=== PATIENT | female | born 1950 | race African-American/Black ===

== ENCOUNTER 2021-02-19 07:24 | Day surgery (SDC) | payer OTHER ==
[2021-02-19] MEDS ORDERED: FERRIC CARBOXYMALTOSE 750 MG in SODIUM CHLORIDE 250 ML IVPB ONE (16:30)
[2021-02-19 19:06] VITALS: BP 136/52; PULSE 65; TEMP 97.5
== END 2021-02-19 17:25 | disposition home or self-care (01) ==
LOC: JONCNONCHE 07:24
PROVIDERS: ATTEND Internal Medicine Hematology & Oncology
PROC: 3E033GC Introduction of Other Therapeutic Substance into Peripheral Vein, Percutaneous Approach (ICD-10-PCS; principal; 2021-02-19)
DX: D50.9 Iron deficiency anemia, unspecified (principal)
CPT/HCPCS: 96365; J1439

== ENCOUNTER 2021-02-26 07:12 | Day surgery (SDC) | payer OTHER ==
[2021-02-26] MEDS ORDERED: FERRIC CARBOXYMALTOSE 750 MG in SODIUM CHLORIDE 250 ML IVPB ONE (10:00)
[2021-02-26 16:59] VITALS: TEMP 97.5
[2021-02-26 17:00] VITALS: BP 136/40; PULSE 63
== END 2021-02-26 14:00 | disposition home or self-care (01) ==
LOC: JONCNONCHE 07:12
PROVIDERS: ATTEND Internal Medicine Hematology & Oncology
PROC: 3E033GC Introduction of Other Therapeutic Substance into Peripheral Vein, Percutaneous Approach (ICD-10-PCS; principal; 2021-02-26)
DX: D50.9 Iron deficiency anemia, unspecified (principal)
CPT/HCPCS: 96365; J1439

== ENCOUNTER 2021-03-19 07:25 | Day surgery (SDC) | payer OTHER ==
[2021-03-19] MEDS ORDERED: EPOETIN ALFA-EPBX 20,000 UNIT/ML VIAL SQ ONE (10:00)
[2021-03-19 15:11] LABS: BASO % 0.7 % (0-2.0); EOS % 1.6 % (0-4.5); HEMATOCRIT 22.8 % (32.4-45.2); HEMOGLOBIN 7.8 GM/dL (10.7-15.3); LYMPH % 14.8 % (8-40); MCH 31.9 pg (25.7-33.7); MCHC 34.2 g/dl (32.0-36.0); MEAN CELL VOLUME 93.3 fl (80-96); MEAN PLT VOLUME 8.6 fl (7.5-11.1); MONO % 9.3 % (3.8-10.2); NEUT % 73.6 % (42.8-82.8); PLATELET COUNT 150 K/MM3 (134-434); RBC 2.44 M/mm3 (3.60-5.2); RDW 12.3 % (11.6-15.6); WHITE BLOOD COUNT 3.5 K/mm3 (4.0-10.0)
[2021-03-19] MEDS ORDERED: EPOETIN ALFA-EPBX 10,000 UNIT/ML VIAL SQ ONE (15:30)
[2021-03-19 15:34] LABS: CALCIUM 9.4 mg/dL (8.5-10.1)
[2021-03-19 15:35] LABS: ALBUMIN 4.4 g/dl (3.4-5.0); BLOOD UREA NITROGEN 63.1 mg/dL (7-18)
[2021-03-19 15:38] LABS: BILIRUBIN,TOTAL 0.4 mg/dL (0.2-1); CREATININE 3.4 mg/dL (0.55-1.3); TOT PROT 7.6 g/dl (6.4-8.2)
[2021-03-19 17:11] VITALS: BP 145/59; PULSE 61
[2021-03-19 17:15] VITALS: TEMP 98.2
== END 2021-03-19 15:35 | disposition home or self-care (01) ==
LOC: JONCCHEMO 07:25
PROVIDERS: ATTEND Internal Medicine Hematology & Oncology
PROC: 3E013GC Introduction of Other Therapeutic Substance into Subcutaneous Tissue, Percutaneous Approach (ICD-10-PCS; principal; 2021-03-19)
DX: N18.9 Chronic kidney disease, unspecified (principal); D63.1 Anemia in chronic kidney disease; D50.9 Iron deficiency anemia, unspecified
CPT/HCPCS: 36415; 80053; 85025; 96372; Q5106

== ENCOUNTER 2021-03-26 07:09 | Day surgery (SDC) | payer OTHER ==
[2021-03-26] MEDS ORDERED: EPOETIN ALFA-EPBX 20,000 UNIT/ML VIAL SQ ONE (10:00)
[2021-03-26 13:51] LABS: BASO % 0.6 % (0-2.0); EOS % 1.6 % (0-4.5); HEMATOCRIT 24.7 % (32.4-45.2); HEMOGLOBIN 8.5 GM/dL (10.7-15.3); LYMPH % 11.8 % (8-40); MCH 32.5 pg (25.7-33.7); MCHC 34.4 g/dl (32.0-36.0); MEAN CELL VOLUME 94.5 fl (80-96); MEAN PLT VOLUME 8.1 fl (7.5-11.1); MONO % 11.6 % (3.8-10.2); NEUT % 74.4 % (42.8-82.8); PLATELET COUNT 188 K/MM3 (134-434); RBC 2.62 M/mm3 (3.60-5.2); RDW 12.7 % (11.6-15.6); WHITE BLOOD COUNT 3.7 K/mm3 (4.0-10.0)
[2021-03-26 14:15] LABS: ALBUMIN 4.5 g/dl (3.4-5.0); BLOOD UREA NITROGEN 41.4 mg/dL (7-18); CALCIUM 9.5 mg/dL (8.5-10.1)
[2021-03-26 14:18] LABS: CREATININE 3.5 mg/dL (0.55-1.3)
[2021-03-26 14:20] LABS: BILIRUBIN,TOTAL 0.6 mg/dL (0.2-1); TOT PROT 7.6 g/dl (6.4-8.2)
[2021-03-26] MEDS ORDERED: EPOETIN ALFA 10,000 UNIT/1 ML VIAL SQ ONE (14:30)
[2021-03-26 16:19] VITALS: BP 150/59; PULSE 61; TEMP 97.8
== END 2021-03-26 14:45 | disposition home or self-care (01) ==
LOC: JONCCHEMO 07:09
PROVIDERS: ATTEND Internal Medicine Hematology & Oncology
PROC: 3E013GC Introduction of Other Therapeutic Substance into Subcutaneous Tissue, Percutaneous Approach (ICD-10-PCS; principal; 2021-03-26)
DX: N18.9 Chronic kidney disease, unspecified (principal); D63.1 Anemia in chronic kidney disease; D50.9 Iron deficiency anemia, unspecified
CPT/HCPCS: 36415; 80053; 85025; 96372; J0885

== ENCOUNTER 2021-04-02 09:33 | Day surgery (SDC) | payer OTHER ==
[2021-04-02] MEDS ORDERED: EPOETIN ALFA-EPBX 10,000 UNIT/ML VIAL SQ ONE (10:00)
[2021-04-02 14:48] LABS: BASO % 0.5 % (0-2.0); HEMATOCRIT 27.1 % (32.4-45.2); HEMOGLOBIN 9.1 GM/dL (10.7-15.3); LYMPH % 10.2 % (8-40); MCH 32.1 pg (25.7-33.7); MCHC 33.6 g/dl (32.0-36.0); MEAN CELL VOLUME 95.4 fl (80-96); MEAN PLT VOLUME 7.2 fl (7.5-11.1); MONO % 9.9 % (3.8-10.2); NEUT % 78.4 % (42.8-82.8); PLATELET COUNT 206 10^3/uL (134-434); RBC 2.83 M/mm3 (3.60-5.2); RDW 14.2 % (11.6-15.6); WHITE BLOOD COUNT 3.7 K/mm3 (4.0-10.0)
[2021-04-02 15:10] LABS: ALBUMIN 4.6 g/dl (3.4-5.0); BLOOD UREA NITROGEN 41.8 mg/dL (7-18); CALCIUM 9.6 mg/dL (8.5-10.1)
[2021-04-02 15:13] LABS: CREATININE 3.1 mg/dL (0.55-1.3)
[2021-04-02 15:15] LABS: BILIRUBIN,TOTAL 0.3 mg/dL (0.2-1); TOT PROT 7.8 g/dl (6.4-8.2)
[2021-04-02 15:56] VITALS: BP 153/66; PULSE 63; TEMP 97.6
== END 2021-04-02 15:25 | disposition home or self-care (01) ==
LOC: JONCCHEMO 09:33
PROVIDERS: ATTEND Internal Medicine Hematology & Oncology
PROC: 3E013GC Introduction of Other Therapeutic Substance into Subcutaneous Tissue, Percutaneous Approach (ICD-10-PCS; principal; 2021-04-02)
DX: N18.9 Chronic kidney disease, unspecified (principal); D63.1 Anemia in chronic kidney disease; D50.9 Iron deficiency anemia, unspecified
CPT/HCPCS: 36415; 80053; 85025; 96372; Q5106

== ENCOUNTER → 2021-04-09 | Day surgery (SDC) | payer OTHER ==
[2021-04-09 15:13] LABS: BASO % 0.8 % (0-2.0); EOS % 1.2 % (0-4.5); HEMATOCRIT 28.3 % (32.4-45.2); HEMOGLOBIN 9.7 GM/dL (10.7-15.3); LYMPH % 8.9 % (8-40); MCH 32.4 pg (25.7-33.7); MCHC 34.4 g/dl (32.0-36.0); MEAN CELL VOLUME 94.1 fl (80-96); MONO % 13.1 % (3.8-10.2); PLATELET COUNT 203 10^3/uL (134-434); RBC 3.01 M/mm3 (3.60-5.2); RDW 13.8 % (11.6-15.6); WHITE BLOOD COUNT 3.1 K/mm3 (4.0-10.0)
[2021-04-09 15:28] LABS: ALBUMIN 4.7 g/dl (3.4-5.0); BLOOD UREA NITROGEN 47.2 mg/dL (7-18); CALCIUM 9.6 mg/dL (8.5-10.1)
[2021-04-09 15:32] LABS: CREATININE 3.1 mg/dL (0.55-1.3)
[2021-04-09 15:33] LABS: BILIRUBIN,TOTAL 0.4 mg/dL (0.2-1); TOT PROT 7.6 g/dl (6.4-8.2)
== END | disposition home or self-care (01) ==
LOC: JONCCHEMO 07:15
PROVIDERS: ATTEND Internal Medicine Hematology & Oncology
DX: Z53.8 Procedure and treatment not carried out for other reasons (principal)
CPT/HCPCS: 36415; 80053; 82150; 82728; 83540; 83550; 83690; 85025; 96365

== ENCOUNTER 2021-05-07 07:13 | Day surgery (SDC) | payer OTHER ==
[~2021-05-07 07:13] MED LIST: EPOETIN ALFA-EPBX 10,000 UNIT/ML VIAL SQ ONE
[2021-05-07] MEDS ORDERED: EPOETIN ALFA-EPBX 10,000 UNIT/ML VIAL SQ ONE (10:00)
[2021-05-07 10:47] LABS: BASO % 0.6 % (0-2.0); EOS % 2.2 % (0-4.5); HEMATOCRIT 25.6 % (32.4-45.2); HEMOGLOBIN 8.8 GM/dL (10.7-15.3); LYMPH % 17.3 % (8-40); MCH 31.7 pg (25.7-33.7); MCHC 34.1 g/dl (32.0-36.0); MEAN CELL VOLUME 92.7 fl (80-96); MEAN PLT VOLUME 8.7 fl (7.5-11.1); MONO % 9.1 % (3.8-10.2); NEUT % 70.8 % (42.8-82.8); PLATELET COUNT 140 10^3/uL (134-434); RBC 2.77 M/mm3 (3.60-5.2); RDW 13.2 % (11.6-15.6); WHITE BLOOD COUNT 4.1 K/mm3 (4.0-10.0)
[2021-05-07 11:06] LABS: ALBUMIN 4.1 g/dl (3.4-5.0); BLOOD UREA NITROGEN 57.6 mg/dL (7-18); CALCIUM 9.3 mg/dL (8.5-10.1)
[2021-05-07 11:09] LABS: CREATININE 3.1 mg/dL (0.55-1.3)
[2021-05-07 11:10] LABS: BILIRUBIN,TOTAL 0.3 mg/dL (0.2-1); TOT PROT 7.3 g/dl (6.4-8.2)
[2021-05-07 16:12] VITALS: BP 146/79; PULSE 68; TEMP 97.8
== END 2021-05-07 12:35 | disposition home or self-care (01) ==
LOC: JONCCHEMO 07:13
PROVIDERS: ATTEND Internal Medicine Hematology & Oncology
PROC: 3E013GC Introduction of Other Therapeutic Substance into Subcutaneous Tissue, Percutaneous Approach (ICD-10-PCS; principal; 2021-05-07)
DX: I12.9 Hypertensive chronic kidney disease with stage 1 through stage 4 chronic kidney disease, or unspecified chronic kidney disease (principal); E11.22 Type 2 diabetes mellitus with diabetic chronic kidney disease; D63.1 Anemia in chronic kidney disease; N18.9 Chronic kidney disease, unspecified; D50.9 Iron deficiency anemia, unspecified
CPT/HCPCS: 36415; 80053; 82728; 83540; 83550; 85025; 96372; Q5106

== ENCOUNTER 2021-05-14 07:18 | Day surgery (SDC) | payer OTHER ==
[2021-05-14] MEDS ORDERED: EPOETIN ALFA-EPBX 10,000 UNIT/ML VIAL SQ ONE (13:15)
[2021-05-14 14:19] LABS: BASO % 0.4 % (0-2.0); EOS % 1.9 % (0-4.5); HEMATOCRIT 24.7 % (32.4-45.2); HEMOGLOBIN 8.6 GM/dL (10.7-15.3); LYMPH % 14.2 % (8-40); MCH 32.9 pg (25.7-33.7); MCHC 34.7 g/dl (32.0-36.0); MEAN CELL VOLUME 94.9 fl (80-96); MEAN PLT VOLUME 8.8 fl (7.5-11.1); MONO % 9.5 % (3.8-10.2); PLATELET COUNT 143 10^3/uL (134-434); RDW 13.2 % (11.6-15.6)
[2021-05-14 14:21] VITALS: BP 134/61; PULSE 60; TEMP 98
[2021-05-14 14:42] LABS: ALBUMIN 4.1 g/dl (3.4-5.0); BLOOD UREA NITROGEN 47.7 mg/dL (7-18); CALCIUM 9.3 mg/dL (8.5-10.1)
[2021-05-14 14:45] LABS: CREATININE 2.7 mg/dL (0.55-1.3)
[2021-05-14 14:47] LABS: BILIRUBIN,TOTAL 0.4 mg/dL (0.2-1); TOT PROT 7.2 g/dl (6.4-8.2)
== END 2021-05-14 14:15 | disposition home or self-care (01) ==
LOC: JONCNONCHE 07:18
PROVIDERS: ATTEND Internal Medicine Hematology & Oncology
PROC: 3E013GC Introduction of Other Therapeutic Substance into Subcutaneous Tissue, Percutaneous Approach (ICD-10-PCS; principal; 2021-05-14)
DX: D64.9 Anemia, unspecified (principal); D50.9 Iron deficiency anemia, unspecified
CPT/HCPCS: 36415; 80053; 85025; 96372; Q5106

== ENCOUNTER 2021-05-21 07:17 | Day surgery (SDC) | payer OTHER ==
[2021-05-21] MEDS ORDERED: EPOETIN ALFA-EPBX 10,000 UNIT/ML VIAL SQ ONE (10:00)
[2021-05-21 14:21] LABS: BASO % 0.4 % (0-2.0); EOS % 2.1 % (0-4.5); HEMATOCRIT 27.2 % (32.4-45.2); HEMOGLOBIN 9.4 GM/dL (10.7-15.3); LYMPH % 13.3 % (8-40); MCH 33.4 pg (25.7-33.7); MCHC 34.4 g/dl (32.0-36.0); MEAN CELL VOLUME 97.1 fl (80-96); MEAN PLT VOLUME 8.3 fl (7.5-11.1); MONO % 6.7 % (3.8-10.2); NEUT % 77.5 % (42.8-82.8); PLATELET COUNT 165 10^3/uL (134-434); RDW 14.7 % (11.6-15.6); WHITE BLOOD COUNT 4.1 K/mm3 (4.0-10.0)
[2021-05-21 14:43] LABS: BLOOD UREA NITROGEN 48.2 mg/dL (7-18); CALCIUM 9.1 mg/dL (8.5-10.1)
[2021-05-21 14:47] LABS: CREATININE 3.1 mg/dL (0.55-1.3)
[2021-05-21 14:48] LABS: BILIRUBIN,TOTAL 0.4 mg/dL (0.2-1); TOT PROT 7.3 g/dl (6.4-8.2)
[2021-05-21 16:09] VITALS: BP 136/58; PULSE 68; TEMP 98.4
== END 2021-05-21 14:15 | disposition home or self-care (01) ==
LOC: JONCCHEMO 07:17
PROVIDERS: ATTEND Internal Medicine Hematology & Oncology
PROC: 3E013GC Introduction of Other Therapeutic Substance into Subcutaneous Tissue, Percutaneous Approach (ICD-10-PCS; principal; 2021-05-21)
DX: D64.9 Anemia, unspecified (principal); D50.9 Iron deficiency anemia, unspecified
CPT/HCPCS: 36415; 80053; 85025; 96372; Q5106

== ENCOUNTER 2021-06-04 06:37 | Day surgery (SDC) | payer OTHER ==
[2021-06-04 14:22] LABS: HEMATOCRIT 29.5 % (32.4-45.2); HEMOGLOBIN 9.9 GM/dL (10.7-15.3); RBC 3.06 M/mm3 (3.60-5.2); WHITE BLOOD COUNT 3.4 K/mm3 (4.0-10.0)
[2021-06-04 14:23] LABS: BASO % 0.7 % (0-2.0); EOS % 2.1 % (0-4.5); LYMPH % 18.6 % (8-40); MCH 32.2 pg (25.7-33.7); MCHC 33.5 g/dl (32.0-36.0); MEAN CELL VOLUME 96.2 fl (80-96); MEAN PLT VOLUME 8.1 fl (7.5-11.1); MONO % 8.4 % (3.8-10.2); NEUT % 70.2 % (42.8-82.8); PLATELET COUNT 183 10^3/uL (134-434); RDW 14.2 % (11.6-15.6)
[2021-06-04 14:38] LABS: ALBUMIN 4.5 g/dl (3.4-5.0); BLOOD UREA NITROGEN 72.7 mg/dL (7-18); CALCIUM 9.7 mg/dL (8.5-10.1)
[2021-06-04 14:41] LABS: CREATININE 3.1 mg/dL (0.55-1.3)
[2021-06-04 14:43] LABS: BILIRUBIN,TOTAL 0.4 mg/dL (0.2-1); TOT PROT 7.7 g/dl (6.4-8.2)
[2021-06-04] MEDS ORDERED: EPOETIN ALFA-EPBX 10,000 UNIT/ML VIAL SQ ONE (15:02)
[2021-06-04 15:44] VITALS: BP 156/65; PULSE 69; TEMP 98.1
== END 2021-06-04 15:40 | disposition home or self-care (01) ==
LOC: JONCCHEMO 06:37
PROVIDERS: ATTEND Internal Medicine Hematology & Oncology
PROC: 3E013GC Introduction of Other Therapeutic Substance into Subcutaneous Tissue, Percutaneous Approach (ICD-10-PCS; principal; 2021-06-04)
DX: D50.9 Iron deficiency anemia, unspecified (principal)
CPT/HCPCS: 36415; 80053; 85025; 96372; Q5106

== ENCOUNTER 2021-06-18 06:55 | Day surgery (SDC) | payer OTHER ==
[2021-06-18] MEDS ORDERED: EPOETIN ALFA-EPBX 10,000 UNIT/ML VIAL SQ ONE (14:04)
[2021-06-18 14:42] LABS: BASO % 0.6 % (0-2.0); EOS % 2.6 % (0-4.5); HEMATOCRIT 29.5 % (32.4-45.2); HEMOGLOBIN 10.2 GM/dL (10.7-15.3); LYMPH % 20.1 % (8-40); MCH 32.8 pg (25.7-33.7); MCHC 34.5 g/dl (32.0-36.0); MEAN CELL VOLUME 95.2 fl (80-96); MEAN PLT VOLUME 8.3 fl (7.5-11.1); MONO % 8.6 % (3.8-10.2); NEUT % 68.1 % (42.8-82.8); PLATELET COUNT 157 10^3/uL (134-434); RDW 13.7 % (11.6-15.6); WHITE BLOOD COUNT 3.9 K/mm3 (4.0-10.0)
[2021-06-18 16:48] VITALS: BP 144/61; PULSE 59; TEMP 98.1
== END 2021-06-18 15:05 | disposition home or self-care (01) ==
LOC: JONCCHEMO 06:55
PROVIDERS: ATTEND Internal Medicine Hematology & Oncology
PROC: 3E013GC Introduction of Other Therapeutic Substance into Subcutaneous Tissue, Percutaneous Approach (ICD-10-PCS; principal; 2021-06-18)
DX: C64.9 Malignant neoplasm of unspecified kidney, except renal pelvis (principal); D63.1 Anemia in chronic kidney disease; I12.0 Hypertensive chronic kidney disease with stage 5 chronic kidney disease or end stage renal disease; I12.9 Hypertensive chronic kidney disease with stage 1 through stage 4 chronic kidney disease, or unspecified chronic kidney disease; E11.22 Type 2 diabetes mellitus with diabetic chronic kidney disease; N18.9 Chronic kidney disease, unspecified
CPT/HCPCS: 36415; 85025; 96372; Q5106

== ENCOUNTER 2021-06-25 06:38 | Day surgery (SDC) | payer OTHER ==
[2021-06-25] MEDS ORDERED: EPOETIN ALFA-EPBX 10,000 UNIT/ML VIAL SQ ONE (11:00)
[2021-06-25 14:04] LABS: BASO % 0.5 % (0-2.0); EOS % 2.5 % (0-4.5); HEMATOCRIT 30.2 % (32.4-45.2); HEMOGLOBIN 10.3 GM/dL (10.7-15.3); LYMPH % 17.8 % (8-40); MCH 32.9 pg (25.7-33.7); MEAN CELL VOLUME 96.8 fl (80-96); MEAN PLT VOLUME 8.5 fl (7.5-11.1); MONO % 9.5 % (3.8-10.2); NEUT % 69.7 % (42.8-82.8); PLATELET COUNT 177 10^3/uL (134-434); RBC 3.12 M/mm3 (3.60-5.2); RDW 13.8 % (11.6-15.6); WHITE BLOOD COUNT 4.4 K/mm3 (4.0-10.0)
[2021-06-25 14:15] LABS: BLOOD UREA NITROGEN 70.7 mg/dL (7-18); CALCIUM 9.6 mg/dL (8.5-10.1)
[2021-06-25 14:16] LABS: ALBUMIN 4.2 g/dl (3.4-5.0)
[2021-06-25 14:18] LABS: CREATININE 3.1 mg/dL (0.55-1.3)
[2021-06-25 14:20] LABS: BILIRUBIN,TOTAL 0.4 mg/dL (0.2-1); TOT PROT 7.6 g/dl (6.4-8.2)
[2021-06-25 16:15] VITALS: BP 141/59; PULSE 63; TEMP 97.8
== END 2021-06-25 14:35 | disposition home or self-care (01) ==
LOC: JONCCHEMO 06:38
PROVIDERS: ATTEND Internal Medicine Hematology & Oncology
PROC: 3E013GC Introduction of Other Therapeutic Substance into Subcutaneous Tissue, Percutaneous Approach (ICD-10-PCS; principal; 2021-06-25)
DX: D50.9 Iron deficiency anemia, unspecified (principal)
CPT/HCPCS: 36415; 80053; 85025; 96372; Q5106

== ENCOUNTER 2021-07-09 07:03 | Day surgery (SDC) | payer OTHER ==
[2021-07-09 10:14] LABS: BASO % 0.7 % (0-2.0); EOS % 1.9 % (0-4.5); HEMOGLOBIN 10.7 GM/dL (10.7-15.3); LYMPH % 12.9 % (8-40); MCH 32.2 pg (25.7-33.7); MCHC 33.4 g/dl (32.0-36.0); MEAN CELL VOLUME 96.3 fl (80-96); MEAN PLT VOLUME 8.3 fl (7.5-11.1); MONO % 8.3 % (3.8-10.2); NEUT % 76.2 % (42.8-82.8); PLATELET COUNT 166 10^3/uL (134-434); RBC 3.32 M/mm3 (3.60-5.2); RDW 13.8 % (11.6-15.6)
[2021-07-09 10:35] LABS: CALCIUM 9.8 mg/dL (8.5-10.1)
[2021-07-09 10:36] LABS: ALBUMIN 4.1 g/dl (3.4-5.0); BLOOD UREA NITROGEN 63.8 mg/dL (7-18)
[2021-07-09 10:40] LABS: BILIRUBIN,TOTAL 0.6 mg/dL (0.2-1); TOT PROT 7.7 g/dl (6.4-8.2)
[2021-07-09] MEDS ORDERED: EPOETIN ALFA-EPBX 10,000 UNIT/ML VIAL SQ ONE (11:45)
[2021-07-09 14:58] VITALS: BP 162/76; PULSE 59; TEMP 97.7
== END 2021-07-09 11:50 | disposition home or self-care (01) ==
LOC: JONCCHEMO 07:03
PROVIDERS: ATTEND Internal Medicine Hematology & Oncology
PROC: 3E013GC Introduction of Other Therapeutic Substance into Subcutaneous Tissue, Percutaneous Approach (ICD-10-PCS; principal; 2021-07-09)
DX: I12.9 Hypertensive chronic kidney disease with stage 1 through stage 4 chronic kidney disease, or unspecified chronic kidney disease (principal); N18.9 Chronic kidney disease, unspecified; D63.1 Anemia in chronic kidney disease; E11.22 Type 2 diabetes mellitus with diabetic chronic kidney disease; C64.9 Malignant neoplasm of unspecified kidney, except renal pelvis
CPT/HCPCS: 36415; 80053; 85025; 96372; Q5106

== ENCOUNTER 2021-07-23 07:14 | Day surgery (SDC) | payer OTHER ==
[2021-07-23 13:31] LABS: BASO % 0.7 % (0-2.0); EOS % 2.9 % (0-4.5); HEMATOCRIT 31.9 % (32.4-45.2); HEMOGLOBIN 10.7 GM/dL (10.7-15.3); LYMPH % 18.4 % (8-40); MCH 32.2 pg (25.7-33.7); MCHC 33.6 g/dl (32.0-36.0); MEAN CELL VOLUME 95.8 fl (80-96); PLATELET COUNT 143 10^3/uL (134-434); RBC 3.33 M/mm3 (3.60-5.2); RDW 13.5 % (11.6-15.6); WHITE BLOOD COUNT 3.8 K/mm3 (4.0-10.0)
[2021-07-23 13:56] LABS: ALBUMIN 4.3 g/dl (3.4-5.0); BLOOD UREA NITROGEN 71.2 mg/dL (7-18); CALCIUM 9.8 mg/dL (8.5-10.1)
[2021-07-23 14:00] LABS: TOT PROT 7.9 g/dl (6.4-8.2)
[2021-07-23] MEDS ORDERED: EPOETIN ALFA 10,000 UNIT/1 ML VIAL SQ ONE (14:00)
[2021-07-23 14:01] LABS: BILIRUBIN,TOTAL 0.4 mg/dL (0.2-1)
[2021-07-23] MEDS ORDERED: EPOETIN ALFA-EPBX 10,000 UNIT/ML VIAL SQ ONE (14:15)
[2021-07-23 16:35] VITALS: BP 152/68; PULSE 68; TEMP 98
== END 2021-07-23 14:40 | disposition home or self-care (01) ==
LOC: JONCCHEMO 07:14
PROVIDERS: ATTEND Internal Medicine Hematology & Oncology
PROC: 3E013GC Introduction of Other Therapeutic Substance into Subcutaneous Tissue, Percutaneous Approach (ICD-10-PCS; principal; 2021-07-23)
DX: N18.9 Chronic kidney disease, unspecified (principal); D63.1 Anemia in chronic kidney disease; E11.9 Type 2 diabetes mellitus without complications; C64.9 Malignant neoplasm of unspecified kidney, except renal pelvis
CPT/HCPCS: 36415; 80053; 82728; 83540; 83550; 85025; 96372; Q5106

== ENCOUNTER 2021-07-30 07:42 | Day surgery (SDC) | payer OTHER ==
[2021-07-30] MEDS ORDERED: EPOETIN ALFA-EPBX 10,000 UNIT/ML VIAL SQ ONE (10:00)
[2021-07-30 11:16] LABS: BASO % 0.4 % (0-2.0); EOS % 2.4 % (0-4.5); HEMATOCRIT 32.6 % (32.4-45.2); LYMPH % 13.3 % (8-40); MCH 31.8 pg (25.7-33.7); MCHC 33.7 g/dl (32.0-36.0); MEAN CELL VOLUME 94.5 fl (80-96); MEAN PLT VOLUME 8.3 fl (7.5-11.1); MONO % 7.4 % (3.8-10.2); NEUT % 76.5 % (42.8-82.8); PLATELET COUNT 171 10^3/uL (134-434); RBC 3.44 M/mm3 (3.60-5.2); RDW 13.4 % (11.6-15.6); WHITE BLOOD COUNT 4.7 K/mm3 (4.0-10.0)
[2021-07-30 11:44] LABS: CALCIUM 9.4 mg/dL (8.5-10.1)
[2021-07-30 11:45] LABS: BLOOD UREA NITROGEN 72.5 mg/dL (7-18)
[2021-07-30 11:48] LABS: CREATININE 3.1 mg/dL (0.55-1.3)
[2021-07-30 11:49] LABS: BILIRUBIN,TOTAL 0.5 mg/dL (0.2-1); TOT PROT 7.8 g/dl (6.4-8.2)
[2021-07-30 16:40] VITALS: BP 164/56; PULSE 61; TEMP 98.2
== END 2021-07-30 12:00 | disposition home or self-care (01) ==
LOC: JONCCHEMO 07:42
PROVIDERS: ATTEND Internal Medicine Hematology & Oncology
DX: Z53.8 Procedure and treatment not carried out for other reasons (principal)
CPT/HCPCS: 36415; 80053; 82728; 83540; 83550; 85025

== ENCOUNTER → 2021-08-06 | Day surgery (SDC) | payer OTHER ==
[2021-08-06 11:52] LABS: BASO % 0.6 % (0-2.0); EOS % 2.3 % (0-4.5); HEMATOCRIT 32.8 % (32.4-45.2); LYMPH % 18.8 % (8-40); MCH 31.9 pg (25.7-33.7); MCHC 33.4 g/dl (32.0-36.0); MEAN CELL VOLUME 95.4 fl (80-96); MEAN PLT VOLUME 9.2 fl (7.5-11.1); MONO % 8.4 % (3.8-10.2); NEUT % 69.9 % (42.8-82.8); PLATELET COUNT 150 10^3/uL (134-434); RBC 3.44 M/mm3 (3.60-5.2); RDW 13.6 % (11.6-15.6); WHITE BLOOD COUNT 3.4 K/mm3 (4.0-10.0)
[2021-08-06 12:11] LABS: BLOOD UREA NITROGEN 82.3 mg/dL (7-18); CALCIUM 9.8 mg/dL (8.5-10.1)
[2021-08-06 12:14] LABS: CREATININE 3.3 mg/dL (0.55-1.3)
[2021-08-06 12:15] LABS: BILIRUBIN,TOTAL 0.3 mg/dL (0.2-1); TOT PROT 7.8 g/dl (6.4-8.2)
== END | disposition home or self-care (01) ==
LOC: JONCCHEMO 08:37
PROVIDERS: ATTEND Internal Medicine Hematology & Oncology
DX: Z53.8 Procedure and treatment not carried out for other reasons (principal)
CPT/HCPCS: 36415; 80053; 82728; 83540; 83550; 85025

== ENCOUNTER 2021-08-20 08:35 | Day surgery (SDC) | payer OTHER ==
[2021-08-20] MEDS ORDERED: EPOETIN ALFA-EPBX 10,000 UNIT/ML VIAL SQ ONE (10:00)
[2021-08-20 11:07] LABS: BASO % 0.3 % (0-2.0); EOS % 2.5 % (0-4.5); HEMATOCRIT 31.1 % (32.4-45.2); HEMOGLOBIN 10.5 GM/dL (10.7-15.3); LYMPH % 16.5 % (8-40); MCH 31.5 pg (25.7-33.7); MCHC 33.7 g/dl (32.0-36.0); MEAN CELL VOLUME 93.3 fl (80-96); MEAN PLT VOLUME 9.3 fl (7.5-11.1); MONO % 7.8 % (3.8-10.2); NEUT % 72.9 % (42.8-82.8); PLATELET COUNT 144 10^3/uL (134-434); RBC 3.33 M/mm3 (3.60-5.2); RDW 13.1 % (11.6-15.6); WHITE BLOOD COUNT 4.8 K/mm3 (4.0-10.0)
[2021-08-20 11:26] LABS: ALBUMIN 4.1 g/dl (3.4-5.0); BLOOD UREA NITROGEN 76.8 mg/dL (7-18); CALCIUM 9.5 mg/dL (8.5-10.1)
[2021-08-20 11:29] LABS: CREATININE 3.2 mg/dL (0.55-1.3)
[2021-08-20 11:30] LABS: BILIRUBIN,TOTAL 0.4 mg/dL (0.2-1); TOT PROT 7.6 g/dl (6.4-8.2)
[2021-08-20 15:22] VITALS: BP 131/58; PULSE 57; TEMP 97.6
== END 2021-08-20 11:35 | disposition home or self-care (01) ==
LOC: JONCCHEMO 08:35
PROVIDERS: ATTEND Internal Medicine Hematology & Oncology
PROC: 3E013GC Introduction of Other Therapeutic Substance into Subcutaneous Tissue, Percutaneous Approach (ICD-10-PCS; principal; 2021-08-20)
DX: I12.9 Hypertensive chronic kidney disease with stage 1 through stage 4 chronic kidney disease, or unspecified chronic kidney disease (principal); N18.9 Chronic kidney disease, unspecified; E11.22 Type 2 diabetes mellitus with diabetic chronic kidney disease; D63.1 Anemia in chronic kidney disease; C64.9 Malignant neoplasm of unspecified kidney, except renal pelvis
CPT/HCPCS: 36415; 80053; 85025; 96372; Q5106

== ENCOUNTER 2021-08-27 07:39 | Day surgery (SDC) | payer OTHER ==
[2021-08-27] MEDS ORDERED: EPOETIN ALFA-EPBX 10,000 UNIT/ML VIAL SQ ONE (10:00)
[2021-08-27 10:47] LABS: BASO % 0.4 % (0-2.0); EOS % 2.2 % (0-4.5); HEMATOCRIT 30.7 % (32.4-45.2); HEMOGLOBIN 10.6 GM/dL (10.7-15.3); LYMPH % 15.5 % (8-40); MCHC 34.4 g/dl (32.0-36.0); MEAN CELL VOLUME 90.2 fl (80-96); MEAN PLT VOLUME 8.1 fl (7.5-11.1); MONO % 10.3 % (3.8-10.2); NEUT % 71.6 % (42.8-82.8); PLATELET COUNT 174 10^3/uL (134-434); RDW 13.3 % (11.6-15.6); WHITE BLOOD COUNT 3.5 K/mm3 (4.0-10.0)
[2021-08-27 11:07] LABS: ALBUMIN 4.3 g/dl (3.4-5.0); BLOOD UREA NITROGEN 64.5 mg/dL (7-18); CALCIUM 9.8 mg/dL (8.5-10.1)
[2021-08-27 11:10] LABS: CREATININE 3.2 mg/dL (0.55-1.3)
[2021-08-27 11:12] LABS: BILIRUBIN,TOTAL 0.5 mg/dL (0.2-1); TOT PROT 7.9 g/dl (6.4-8.2)
[2021-08-27 13:48] VITALS: BP 136/72; PULSE 81; TEMP 98.2
== END 2021-08-27 13:04 | disposition home or self-care (01) ==
LOC: JONCCHEMO 07:39
PROVIDERS: ATTEND Internal Medicine Hematology & Oncology
PROC: 3E013GC Introduction of Other Therapeutic Substance into Subcutaneous Tissue, Percutaneous Approach (ICD-10-PCS; principal; 2021-08-27)
DX: I12.9 Hypertensive chronic kidney disease with stage 1 through stage 4 chronic kidney disease, or unspecified chronic kidney disease (principal); D63.1 Anemia in chronic kidney disease; N18.9 Chronic kidney disease, unspecified; E11.22 Type 2 diabetes mellitus with diabetic chronic kidney disease; C64.9 Malignant neoplasm of unspecified kidney, except renal pelvis
CPT/HCPCS: 36415; 80053; 85025; 96372; Q5106

== ENCOUNTER 2021-09-17 07:34 | Day surgery (SDC) | payer OTHER ==
[2021-09-17] MEDS ORDERED: EPOETIN ALFA-EPBX 10,000 UNIT/ML VIAL SQ ONE (10:00)
[2021-09-17 15:06] LABS: BASO % 0.6 % (0-2.0); EOS % 2.2 % (0-4.5); HEMATOCRIT 31.9 % (32.4-45.2); HEMOGLOBIN 10.7 GM/dL (10.7-15.3); LYMPH % 17.3 % (8-40); MCH 31.2 pg (25.7-33.7); MCHC 33.4 g/dl (32.0-36.0); MEAN CELL VOLUME 93.2 fl (80-96); MEAN PLT VOLUME 8.8 fl (7.5-11.1); MONO % 7.6 % (3.8-10.2); NEUT % 72.3 % (42.8-82.8); PLATELET COUNT 160 10^3/uL (134-434); RBC 3.42 M/mm3 (3.60-5.2); WHITE BLOOD COUNT 3.6 K/mm3 (4.0-10.0)
[2021-09-17 15:29] LABS: ALBUMIN 4.5 g/dl (3.4-5.0); BLOOD UREA NITROGEN 93.7 mg/dL (7-18); CALCIUM 9.8 mg/dL (8.5-10.1)
[2021-09-17 15:32] LABS: CREATININE 3.4 mg/dL (0.55-1.3)
[2021-09-17 15:33] LABS: TOT PROT 8.2 g/dl (6.4-8.2)
[2021-09-17 15:34] LABS: BILIRUBIN,TOTAL 0.6 mg/dL (0.2-1)
[2021-09-17 16:01] VITALS: BP 131/57; PULSE 20; TEMP 97.7
== END 2021-09-17 16:00 | disposition home or self-care (01) ==
LOC: JONCCHEMO 07:34
PROVIDERS: ATTEND Internal Medicine Hematology & Oncology
PROC: 3E013GC Introduction of Other Therapeutic Substance into Subcutaneous Tissue, Percutaneous Approach (ICD-10-PCS; principal; 2021-09-17)
DX: I12.9 Hypertensive chronic kidney disease with stage 1 through stage 4 chronic kidney disease, or unspecified chronic kidney disease (principal); D63.1 Anemia in chronic kidney disease; C64.9 Malignant neoplasm of unspecified kidney, except renal pelvis; N18.9 Chronic kidney disease, unspecified; E11.22 Type 2 diabetes mellitus with diabetic chronic kidney disease
CPT/HCPCS: 36415; 80053; 82728; 83540; 83550; 85025; 96372; Q5106

== ENCOUNTER 2021-10-01 07:21 | Day surgery (SDC) | payer OTHER ==
[2021-10-01 14:52] LABS: BASO % 0.8 % (0-2.0); EOS % 2.3 % (0-4.5); HEMATOCRIT 31.7 % (32.4-45.2); HEMOGLOBIN 10.6 GM/dL (10.7-15.3); LYMPH % 19.2 % (8-40); MCH 31.5 pg (25.7-33.7); MCHC 33.4 g/dl (32.0-36.0); MEAN CELL VOLUME 94.4 fl (80-96); MEAN PLT VOLUME 8.6 fl (7.5-11.1); MONO % 6.4 % (3.8-10.2); NEUT % 71.3 % (42.8-82.8); PLATELET COUNT 168 10^3/uL (134-434); RBC 3.36 M/mm3 (3.60-5.2); RDW 14.2 % (11.6-15.6); WHITE BLOOD COUNT 3.4 K/mm3 (4.0-10.0)
[2021-10-01] MEDS ORDERED: EPOETIN ALFA-EPBX 10,000 UNIT/ML VIAL SQ ONE (15:00)
[2021-10-01 15:17] LABS: ALBUMIN 4.2 g/dl (3.4-5.0)
[2021-10-01 15:20] LABS: CREATININE 3.2 mg/dL (0.55-1.3)
[2021-10-01 15:22] LABS: BILIRUBIN,TOTAL 0.4 mg/dL (0.2-1)
[2021-10-01 15:24] LABS: BLOOD UREA NITROGEN 59.3 mg/dL (7-18)
[2021-10-01 15:50] VITALS: BP 140/87; PULSE 59; TEMP 97.4
== END 2021-10-01 15:10 | disposition home or self-care (01) ==
LOC: JONCCHEMO 07:21
PROVIDERS: ATTEND Internal Medicine Hematology & Oncology
PROC: 3E013GC Introduction of Other Therapeutic Substance into Subcutaneous Tissue, Percutaneous Approach (ICD-10-PCS; principal; 2021-10-01)
DX: I12.9 Hypertensive chronic kidney disease with stage 1 through stage 4 chronic kidney disease, or unspecified chronic kidney disease (principal); D63.1 Anemia in chronic kidney disease; C64.9 Malignant neoplasm of unspecified kidney, except renal pelvis; N18.9 Chronic kidney disease, unspecified; E11.22 Type 2 diabetes mellitus with diabetic chronic kidney disease
CPT/HCPCS: 36415; 80053; 85025; 96372; Q5106

== ENCOUNTER 2021-10-14 07:24 | Day surgery (SDC) | payer OTHER ==
[2021-10-14] MEDS ORDERED: EPOETIN ALFA-EPBX 10,000 UNIT/ML VIAL SQ ONE (10:00)
[2021-10-14 12:29] LABS: BASO % 0.5 % (0-2.0); EOS % 2.2 % (0-4.5); HEMATOCRIT 32.6 % (32.4-45.2); HEMOGLOBIN 10.8 GM/dL (10.7-15.3); LYMPH % 17.4 % (8-40); MEAN CELL VOLUME 94.2 fl (80-96); MEAN PLT VOLUME 8.3 fl (7.5-11.1); MONO % 8.2 % (3.8-10.2); NEUT % 71.7 % (42.8-82.8); PLATELET COUNT 167 10^3/uL (134-434); RBC 3.47 M/mm3 (3.60-5.2); RDW 14.3 % (11.6-15.6); WHITE BLOOD COUNT 3.6 K/mm3 (4.0-10.0)
[2021-10-14 12:59] LABS: CALCIUM 9.8 mg/dL (8.5-10.1)
[2021-10-14 13:00] LABS: ALBUMIN 4.5 g/dl (3.4-5.0)
[2021-10-14 13:03] LABS: BILIRUBIN,TOTAL 0.5 mg/dL (0.2-1); CREATININE 3.2 mg/dL (0.55-1.3)
[2021-10-14 15:50] VITALS: BP 131/59; PULSE 57; TEMP 97.7
== END 2021-10-14 13:00 | disposition home or self-care (01) ==
LOC: JONCCHEMO 07:24
PROVIDERS: ATTEND Internal Medicine Hematology & Oncology
PROC: 3E013GC Introduction of Other Therapeutic Substance into Subcutaneous Tissue, Percutaneous Approach (ICD-10-PCS; principal; 2021-10-14)
DX: I12.9 Hypertensive chronic kidney disease with stage 1 through stage 4 chronic kidney disease, or unspecified chronic kidney disease (principal); D63.1 Anemia in chronic kidney disease; N18.9 Chronic kidney disease, unspecified; E11.22 Type 2 diabetes mellitus with diabetic chronic kidney disease
CPT/HCPCS: 36415; 80053; 85025; 96372; Q5106

== ENCOUNTER 2021-10-29 07:28 | Day surgery (SDC) | payer OTHER ==
[2021-10-29] MEDS ORDERED: EPOETIN ALFA-EPBX 10,000 UNIT/ML VIAL SQ ONE (10:00)
[2021-10-29 12:57] LABS: BASO % 0.9 % (0-2.0); EOS % 2.7 % (0-4.5); HEMATOCRIT 31.9 % (32.4-45.2); HEMOGLOBIN 10.3 GM/dL (10.7-15.3); LYMPH % 20.9 % (8-40); MCHC 32.3 g/dl (32.0-36.0); MEAN CELL VOLUME 95.8 fl (80-96); MEAN PLT VOLUME 8.8 fl (7.5-11.1); MONO % 8.4 % (3.8-10.2); NEUT % 67.1 % (42.8-82.8); PLATELET COUNT 157 10^3/uL (134-434); RBC 3.33 M/mm3 (3.60-5.2); RDW 14.2 % (11.6-15.6); WHITE BLOOD COUNT 2.9 K/mm3 (4.0-10.0)
[2021-10-29 13:11] LABS: ALBUMIN 4.4 g/dl (3.4-5.0); BLOOD UREA NITROGEN 81.1 mg/dL (7-18)
[2021-10-29 13:15] LABS: BILIRUBIN,TOTAL 0.5 mg/dL (0.2-1)
[2021-10-29 13:16] LABS: TOT PROT 7.5 g/dl (6.4-8.2)
[2021-10-29 17:37] VITALS: BP 158/52; PULSE 58; TEMP 97.8
== END 2021-10-29 14:30 | disposition home or self-care (01) ==
LOC: JONCCHEMO 07:28
PROVIDERS: ATTEND Internal Medicine Hematology & Oncology
PROC: 3E013GC Introduction of Other Therapeutic Substance into Subcutaneous Tissue, Percutaneous Approach (ICD-10-PCS; principal; 2021-10-29)
DX: C64.9 Malignant neoplasm of unspecified kidney, except renal pelvis (principal); D63.1 Anemia in chronic kidney disease; I12.0 Hypertensive chronic kidney disease with stage 5 chronic kidney disease or end stage renal disease; N18.9 Chronic kidney disease, unspecified; E11.22 Type 2 diabetes mellitus with diabetic chronic kidney disease
CPT/HCPCS: 36415; 80053; 85025; 96372; Q5106

== ENCOUNTER 2021-11-12 07:37 | Day surgery (SDC) | payer OTHER ==
[2021-11-12] MEDS ORDERED: EPOETIN ALFA-EPBX 10,000 UNIT/ML VIAL SQ ONE (10:00)
[2021-11-12 11:20] LABS: BASO % 0.5 % (0-2.0); EOS % 2.2 % (0-4.5); HEMATOCRIT 32.2 % (32.4-45.2); HEMOGLOBIN 10.3 GM/dL (10.7-15.3); LYMPH % 14.9 % (8-40); MCH 30.8 pg (25.7-33.7); MCHC 32.1 g/dl (32.0-36.0); MEAN CELL VOLUME 95.9 fl (80-96); MEAN PLT VOLUME 8.7 fl (7.5-11.1); MONO % 8.2 % (3.8-10.2); NEUT % 74.2 % (42.8-82.8); PLATELET COUNT 162 10^3/uL (134-434); RBC 3.35 M/mm3 (3.60-5.2); RDW 14.2 % (11.6-15.6); WHITE BLOOD COUNT 3.7 K/mm3 (4.0-10.0)
[2021-11-12 11:41] LABS: CALCIUM 10.2 mg/dL (8.5-10.1)
[2021-11-12 11:42] LABS: ALBUMIN 4.2 g/dl (3.4-5.0); BLOOD UREA NITROGEN 73.4 mg/dL (7-18)
[2021-11-12 11:47] LABS: BILIRUBIN,TOTAL 0.4 mg/dL (0.2-1); TOT PROT 7.4 g/dl (6.4-8.2)
[2021-11-12 16:20] VITALS: BP 108/66; PULSE 57; TEMP 98.4
== END 2021-11-12 12:45 | disposition home or self-care (01) ==
LOC: JONCCHEMO 07:37
PROVIDERS: ATTEND Internal Medicine Hematology & Oncology
PROC: 3E013GC Introduction of Other Therapeutic Substance into Subcutaneous Tissue, Percutaneous Approach (ICD-10-PCS; principal; 2021-11-12)
DX: D50.9 Iron deficiency anemia, unspecified (principal)
CPT/HCPCS: 36415; 80053; 85025; 96372; Q5106

== ENCOUNTER 2021-11-26 12:01 | Day surgery (SDC) | payer OTHER ==
[2021-11-26 13:55] LABS: BASO % 0.6 % (0-2.0); EOS % 2.1 % (0-4.5); HEMATOCRIT 33.8 % (32.4-45.2); HEMOGLOBIN 10.9 GM/dL (10.7-15.3); LYMPH % 20.8 % (8-40); MCH 31.1 pg (25.7-33.7); MCHC 32.2 g/dl (32.0-36.0); MEAN CELL VOLUME 96.5 fl (80-96); MEAN PLT VOLUME 8.7 fl (7.5-11.1); MONO % 7.8 % (3.8-10.2); NEUT % 68.7 % (42.8-82.8); PLATELET COUNT 167 10^3/uL (134-434); RDW 13.8 % (11.6-15.6); WHITE BLOOD COUNT 3.2 K/mm3 (4.0-10.0)
[2021-11-26 14:23] LABS: BLOOD UREA NITROGEN 62.3 mg/dL (7-18); CALCIUM 10.8 mg/dL (8.5-10.1)
[2021-11-26 14:24] LABS: ALBUMIN 4.6 g/dl (3.4-5.0)
[2021-11-26 14:27] LABS: CREATININE 3.2 mg/dL (0.55-1.3)
[2021-11-26 14:28] LABS: BILIRUBIN,TOTAL 0.4 mg/dL (0.2-1); TOT PROT 7.8 g/dl (6.4-8.2)
[2021-11-26 18:24] VITALS: BP 141/66; PULSE 60; TEMP 98.2
== END 2021-11-26 14:30 | disposition home or self-care (01) ==
LOC: JONCCHEMO 12:01
PROVIDERS: ATTEND Internal Medicine Hematology & Oncology
PROC: 3E013GC Introduction of Other Therapeutic Substance into Subcutaneous Tissue, Percutaneous Approach (ICD-10-PCS; principal; 2021-11-26)
DX: D50.9 Iron deficiency anemia, unspecified (principal)
CPT/HCPCS: 36415; 77063-TC; 77067-TC; 80053; 85025; 96372; Q5106

== ENCOUNTER 2021-12-17 07:18 | Day surgery (SDC) | payer OTHER ==
[2021-12-17] MEDS ORDERED: EPOETIN ALFA-EPBX 10,000 UNIT/ML VIAL SQ ONE (09:00)
[2021-12-17 12:10] LABS: BASO % 0.7 % (0-2.0); EOS % 2.1 % (0-4.5); HEMATOCRIT 31.2 % (32.4-45.2); HEMOGLOBIN 10.7 GM/dL (10.7-15.3); MCHC 34.3 g/dl (32.0-36.0); MEAN CELL VOLUME 93.2 fl (80-96); MEAN PLT VOLUME 8.2 fl (7.5-11.1); MONO % 9.2 % (3.8-10.2); PLATELET COUNT 146 10^3/uL (134-434); RBC 3.34 M/mm3 (3.60-5.2); RDW 13.2 % (11.6-15.6); WHITE BLOOD COUNT 2.6 K/mm3 (4.0-10.0)
[2021-12-17 12:26] LABS: CALCIUM 10.2 mg/dL (8.5-10.1)
[2021-12-17 12:27] LABS: ALBUMIN 4.3 g/dl (3.4-5.0); BLOOD UREA NITROGEN 72.4 mg/dL (7-18)
[2021-12-17 12:30] LABS: CREATININE 2.9 mg/dL (0.55-1.3)
[2021-12-17 12:31] LABS: BILIRUBIN,TOTAL 0.3 mg/dL (0.2-1); TOT PROT 7.4 g/dl (6.4-8.2)
[2021-12-17 14:39] VITALS: BP 144/51; PULSE 52; TEMP 97.3
== END 2021-12-17 12:30 | disposition home or self-care (01) ==
LOC: JONCCHEMO 07:18
PROVIDERS: ATTEND Internal Medicine Hematology & Oncology
PROC: 3E013GC Introduction of Other Therapeutic Substance into Subcutaneous Tissue, Percutaneous Approach (ICD-10-PCS; principal; 2021-12-17)
DX: D64.9 Anemia, unspecified (principal); E11.9 Type 2 diabetes mellitus without complications; M81.0 Age-related osteoporosis without current pathological fracture; Z79.84 Long term (current) use of oral hypoglycemic drugs
CPT/HCPCS: 36415; 80053; 85025; 96372; Q5106

== ENCOUNTER 2022-01-21 08:16 | Day surgery (SDC) | payer OTHER ==
[2022-01-21] MEDS ORDERED: EPOETIN ALFA-EPBX 10,000 UNIT/ML VIAL SQ ONE (10:00)
[2022-01-21 13:35] LABS: BASO % 0.5 % (0-2.0); EOS % 1.7 % (0-4.5); HEMATOCRIT 27.4 % (32.4-45.2); HEMOGLOBIN 9.1 GM/dL (10.7-15.3); LYMPH % 12.9 % (8-40); MCH 31.2 pg (25.7-33.7); MCHC 33.3 g/dl (32.0-36.0); MEAN CELL VOLUME 93.5 fl (80-96); MEAN PLT VOLUME 9.1 fl (7.5-11.1); MONO % 6.7 % (3.8-10.2); NEUT % 78.2 % (42.8-82.8); PLATELET COUNT 146 10^3/uL (134-434); RBC 2.92 M/mm3 (3.60-5.2); WHITE BLOOD COUNT 5.2 K/mm3 (4.0-10.0)
[2022-01-21 13:55] LABS: CALCIUM 9.7 mg/dL (8.5-10.1)
[2022-01-21 13:56] LABS: BLOOD UREA NITROGEN 70.9 mg/dL (7-18)
[2022-01-21 14:00] LABS: BILIRUBIN,TOTAL 0.6 mg/dL (0.2-1); CREATININE 2.8 mg/dL (0.55-1.3); TOT PROT 7.4 g/dl (6.4-8.2)
[2022-01-21 18:57] VITALS: BP 145/59; PULSE 64; TEMP 98.4
== END 2022-01-21 14:15 | disposition home or self-care (01) ==
LOC: JONCCHEMO 08:16
PROVIDERS: ATTEND Internal Medicine Hematology & Oncology
PROC: 3E013GC Introduction of Other Therapeutic Substance into Subcutaneous Tissue, Percutaneous Approach (ICD-10-PCS; principal; 2022-01-21)
DX: D64.9 Anemia, unspecified (principal); E11.9 Type 2 diabetes mellitus without complications; M81.0 Age-related osteoporosis without current pathological fracture; Z79.84 Long term (current) use of oral hypoglycemic drugs; Z76.89 Persons encountering health services in other specified circumstances
CPT/HCPCS: 36415; 80053; 85025; 96372; Q5106

== ENCOUNTER 2022-02-11 10:01 | Day surgery (SDC) | payer OTHER ==
[2022-02-11 12:12] LABS: BASO % 0.6 % (0-2.0); EOS % 2.5 % (0-4.5); HEMATOCRIT 27.1 % (32.4-45.2); HEMOGLOBIN 8.9 GM/dL (10.7-15.3); LYMPH % 19.6 % (8-40); MCH 31.1 pg (25.7-33.7); MCHC 32.9 g/dl (32.0-36.0); MEAN CELL VOLUME 94.5 fl (80-96); MEAN PLT VOLUME 8.6 fl (7.5-11.1); MONO % 7.2 % (3.8-10.2); NEUT % 70.1 % (42.8-82.8); PLATELET COUNT 157 10^3/uL (134-434); RBC 2.87 M/mm3 (3.60-5.2); RDW 13.5 % (11.6-15.6); WHITE BLOOD COUNT 3.2 K/mm3 (4.0-10.0)
[2022-02-11 12:33] LABS: ALBUMIN 4.4 g/dl (3.4-5.0); BLOOD UREA NITROGEN 94.5 mg/dL (7-18); CALCIUM 9.6 mg/dL (8.5-10.1)
[2022-02-11 12:36] LABS: CREATININE 3.3 mg/dL (0.55-1.3)
[2022-02-11 12:38] LABS: BILIRUBIN,TOTAL 0.3 mg/dL (0.2-1); TOT PROT 7.6 g/dl (6.4-8.2)
[2022-02-11 18:13] VITALS: BP 107/56; PULSE 54; TEMP 96.1
== END 2022-02-11 12:30 | disposition home or self-care (01) ==
LOC: JONCCHEMO 10:01
PROVIDERS: ATTEND Internal Medicine Hematology & Oncology
PROC: 3E013GC Introduction of Other Therapeutic Substance into Subcutaneous Tissue, Percutaneous Approach (ICD-10-PCS; principal; 2022-02-11)
DX: D64.9 Anemia, unspecified (principal); E11.9 Type 2 diabetes mellitus without complications; M81.0 Age-related osteoporosis without current pathological fracture; Z79.84 Long term (current) use of oral hypoglycemic drugs; Z76.89 Persons encountering health services in other specified circumstances
CPT/HCPCS: 36415; 80053; 85025; 96372; Q5106

== ENCOUNTER 2022-02-25 08:00 | Day surgery (SDC) | payer OTHER ==
[2022-02-25] MEDS ORDERED: EPOETIN ALFA-EPBX 10,000 UNIT/ML VIAL SQ ONE (10:00)
[2022-02-25 15:09] LABS: BASO % 0.6 % (0-2.0); EOS % 1.6 % (0-4.5); HEMATOCRIT 28.6 % (32.4-45.2); HEMOGLOBIN 9.4 GM/dL (10.7-15.3); LYMPH % 17.2 % (8-40); MCH 31.4 pg (25.7-33.7); MEAN CELL VOLUME 95.3 fl (80-96); MEAN PLT VOLUME 8.7 fl (7.5-11.1); MONO % 7.2 % (3.8-10.2); NEUT % 73.4 % (42.8-82.8); PLATELET COUNT 152 10^3/uL (134-434); RDW 13.9 % (11.6-15.6); WHITE BLOOD COUNT 3.4 K/mm3 (4.0-10.0)
[2022-02-25 15:41] LABS: BLOOD UREA NITROGEN 88.8 mg/dL (7-18)
[2022-02-25 15:42] LABS: ALBUMIN 4.4 g/dl (3.4-5.0)
[2022-02-25 15:45] LABS: CREATININE 2.9 mg/dL (0.55-1.3)
[2022-02-25 15:46] LABS: BILIRUBIN,TOTAL 0.4 mg/dL (0.2-1); TOT PROT 7.8 g/dl (6.4-8.2)
[2022-02-25 16:18] VITALS: BP 153/67; PULSE 59; TEMP 97.6
== END 2022-02-25 14:20 | disposition home or self-care (01) ==
LOC: JONCCHEMO 08:00
PROVIDERS: ATTEND Internal Medicine Hematology & Oncology
PROC: 3E013GC Introduction of Other Therapeutic Substance into Subcutaneous Tissue, Percutaneous Approach (ICD-10-PCS; principal; 2022-02-25)
DX: D64.9 Anemia, unspecified (principal); E11.9 Type 2 diabetes mellitus without complications; M81.0 Age-related osteoporosis without current pathological fracture; Z79.84 Long term (current) use of oral hypoglycemic drugs
CPT/HCPCS: 36415; 80053; 85025; 96372; Q5106

== ENCOUNTER 2022-03-04 07:11 | Day surgery (SDC) | payer OTHER ==
[2022-03-04] MEDS ORDERED: EPOETIN ALFA-EPBX 10,000 UNIT/ML VIAL SQ ONE (10:00)
[2022-03-04 14:29] LABS: BASO % 0.5 % (0-2.0); EOS % 2.1 % (0-4.5); HEMATOCRIT 31.3 % (32.4-45.2); HEMOGLOBIN 10.3 GM/dL (10.7-15.3); LYMPH % 16.6 % (8-40); MCH 31.6 pg (25.7-33.7); MCHC 32.9 g/dl (32.0-36.0); MEAN CELL VOLUME 95.8 fl (80-96); MEAN PLT VOLUME 8.1 fl (7.5-11.1); MONO % 9.9 % (3.8-10.2); NEUT % 70.9 % (42.8-82.8); PLATELET COUNT 191 10^3/uL (134-434); RBC 3.26 M/mm3 (3.60-5.2); RDW 14.7 % (11.6-15.6); WHITE BLOOD COUNT 3.5 K/mm3 (4.0-10.0)
[2022-03-04 14:48] LABS: CALCIUM 10.1 mg/dL (8.5-10.1)
[2022-03-04 14:49] LABS: ALBUMIN 4.4 g/dl (3.4-5.0)
[2022-03-04 14:52] LABS: CREATININE 2.9 mg/dL (0.55-1.3)
[2022-03-04 14:54] LABS: BILIRUBIN,TOTAL 0.6 mg/dL (0.2-1)
[2022-03-04 17:00] VITALS: BP 152/62; PULSE 61; TEMP 98
== END 2022-03-04 14:15 | disposition home or self-care (01) ==
LOC: JONCCHEMO 07:11
PROVIDERS: ATTEND Internal Medicine Hematology & Oncology
PROC: 3E013GC Introduction of Other Therapeutic Substance into Subcutaneous Tissue, Percutaneous Approach (ICD-10-PCS; principal; 2022-03-04)
DX: D64.9 Anemia, unspecified (principal)
CPT/HCPCS: 36415; 80053; 85025; 96372; Q5106

== ENCOUNTER 2022-03-25 06:27 | Day surgery (SDC) | payer OTHER ==
[2022-03-25] MEDS ORDERED: EPOETIN ALFA-EPBX 10,000 UNIT/ML VIAL SQ ONE (10:00)
[2022-03-25 13:56] LABS: BASO % 0.7 % (0-2.0); EOS % 1.4 % (0-4.5); HEMATOCRIT 30.4 % (32.4-45.2); HEMOGLOBIN 10.2 GM/dL (10.7-15.3); LYMPH % 16.6 % (8-40); MCH 31.6 pg (25.7-33.7); MCHC 33.7 g/dl (32.0-36.0); MEAN CELL VOLUME 93.6 fl (80-96); MEAN PLT VOLUME 7.8 fl (7.5-11.1); MONO % 7.2 % (3.8-10.2); NEUT % 74.1 % (42.8-82.8); PLATELET COUNT 171 10^3/uL (134-434); RBC 3.25 M/mm3 (3.60-5.2); RDW 13.2 % (11.6-15.6); WHITE BLOOD COUNT 3.5 K/mm3 (4.0-10.0)
[2022-03-25 14:15] LABS: CALCIUM 9.8 mg/dL (8.5-10.1)
[2022-03-25 14:16] LABS: ALBUMIN 4.2 g/dl (3.4-5.0); BLOOD UREA NITROGEN 96.3 mg/dL (7-18)
[2022-03-25 14:19] LABS: CREATININE 3.3 mg/dL (0.55-1.3)
[2022-03-25 14:20] LABS: BILIRUBIN,TOTAL 0.2 mg/dL (0.2-1); TOT PROT 7.6 g/dl (6.4-8.2)
[2022-03-25 17:55] VITALS: BP 150/65; PULSE 60; TEMP 97.6
== END 2022-03-25 15:15 | disposition home or self-care (01) ==
LOC: JONCCHEMO 06:27
PROVIDERS: ATTEND Internal Medicine Hematology & Oncology
PROC: 3E013GC Introduction of Other Therapeutic Substance into Subcutaneous Tissue, Percutaneous Approach (ICD-10-PCS; principal; 2022-03-25)
DX: D64.9 Anemia, unspecified (principal)
CPT/HCPCS: 36415; 80053; 85025; 96372; Q5106

== ENCOUNTER 2022-04-08 06:32 | Day surgery (SDC) | payer OTHER ==
[2022-04-08] MEDS ORDERED: EPOETIN ALFA-EPBX 10,000 UNIT/ML VIAL SQ ONE (10:00)
[2022-04-08 11:26] LABS: BASO % 0.4 % (0-2.0); EOS % 1.3 % (0-4.5); HEMATOCRIT 33.3 % (32.4-45.2); HEMOGLOBIN 11.1 GM/dL (10.7-15.3); LYMPH % 11.3 % (8-40); MCH 31.4 pg (25.7-33.7); MCHC 33.3 g/dl (32.0-36.0); MEAN CELL VOLUME 94.3 fl (80-96); MEAN PLT VOLUME 7.9 fl (7.5-11.1); MONO % 5.3 % (3.8-10.2); NEUT % 81.7 % (42.8-82.8); PLATELET COUNT 206 10^3/uL (134-434); RBC 3.53 M/mm3 (3.60-5.2); RDW 13.4 % (11.6-15.6)
[2022-04-08 11:46] LABS: ALBUMIN 4.4 g/dl (3.4-5.0); BLOOD UREA NITROGEN 82.2 mg/dL (7-18); CALCIUM 10.3 mg/dL (8.5-10.1)
[2022-04-08 11:50] LABS: CREATININE 3.2 mg/dL (0.55-1.3)
[2022-04-08 11:51] LABS: BILIRUBIN,TOTAL 0.5 mg/dL (0.2-1); TOT PROT 7.9 g/dl (6.4-8.2)
[2022-04-08 16:19] VITALS: BP 133/52; PULSE 58; TEMP 97.8
== END 2022-04-08 12:00 | disposition home or self-care (01) ==
LOC: JONCCHEMO 06:32
PROVIDERS: ATTEND Internal Medicine Hematology & Oncology
PROC: 3E013GC Introduction of Other Therapeutic Substance into Subcutaneous Tissue, Percutaneous Approach (ICD-10-PCS; principal; 2022-04-08)
DX: D50.9 Iron deficiency anemia, unspecified (principal)
CPT/HCPCS: 36415; 80053; 85025; 96372; Q5106

== ENCOUNTER 2022-04-22 07:15 | Day surgery (SDC) | payer OTHER ==
[2022-04-22] MEDS ORDERED: EPOETIN ALFA-EPBX 10,000 UNIT/ML VIAL SQ ONE (10:00)
[2022-04-22 11:39] LABS: BASO % 0.4 % (0-2.0); EOS % 1.4 % (0-4.5); HEMATOCRIT 35.3 % (32.4-45.2); HEMOGLOBIN 11.6 GM/dL (10.7-15.3); LYMPH % 16.5 % (8-40); MCH 30.9 pg (25.7-33.7); MCHC 32.8 g/dl (32.0-36.0); MEAN CELL VOLUME 94.1 fl (80-96); MEAN PLT VOLUME 8.4 fl (7.5-11.1); MONO % 6.4 % (3.8-10.2); NEUT % 75.3 % (42.8-82.8); PLATELET COUNT 197 10^3/uL (134-434); RBC 3.75 M/mm3 (3.60-5.2); WHITE BLOOD COUNT 3.9 K/mm3 (4.0-10.0)
[2022-04-22 12:02] LABS: ALBUMIN 4.3 g/dl (3.4-5.0); BLOOD UREA NITROGEN 74.9 mg/dL (7-18)
[2022-04-22 12:05] LABS: CREATININE 3.1 mg/dL (0.55-1.3)
[2022-04-22 12:07] LABS: BILIRUBIN,TOTAL 0.4 mg/dL (0.2-1); TOT PROT 7.7 g/dl (6.4-8.2)
[2022-04-22 17:28] VITALS: BP 143/64; PULSE 70; TEMP 97.7
== END 2022-04-22 14:00 | disposition home or self-care (01) ==
LOC: JONCCHEMO 07:15
PROVIDERS: ATTEND Internal Medicine Hematology & Oncology
PROC: 3E013GC Introduction of Other Therapeutic Substance into Subcutaneous Tissue, Percutaneous Approach (ICD-10-PCS; principal; 2022-04-22)
DX: D50.9 Iron deficiency anemia, unspecified (principal)
CPT/HCPCS: 36415; 80053; 85025; 96372; Q5106

== ENCOUNTER 2022-05-06 07:30 | Day surgery (SDC) | payer OTHER ==
[2022-05-06] MEDS ORDERED: EPOETIN ALFA-EPBX 10,000 UNIT/ML VIAL SQ ONE (11:00)
[2022-05-06 14:00] LABS: BASO % 0.6 % (0-2.0); EOS % 2.2 % (0-4.5); HEMATOCRIT 33.4 % (32.4-45.2); LYMPH % 19.9 % (8-40); MCH 31.1 pg (25.7-33.7); MEAN CELL VOLUME 94.2 fl (80-96); MEAN PLT VOLUME 8.3 fl (7.5-11.1); MONO % 8.1 % (3.8-10.2); NEUT % 69.2 % (42.8-82.8); PLATELET COUNT 180 10^3/uL (134-434); RBC 3.55 M/mm3 (3.60-5.2); RDW 13.1 % (11.6-15.6); WHITE BLOOD COUNT 3.7 K/mm3 (4.0-10.0)
[2022-05-06 14:24] LABS: CALCIUM 9.5 mg/dL (8.5-10.1)
[2022-05-06 14:25] LABS: ALBUMIN 4.2 g/dl (3.4-5.0); BLOOD UREA NITROGEN 70.6 mg/dL (7-18)
[2022-05-06 14:28] LABS: CREATININE 3.5 mg/dL (0.55-1.3)
[2022-05-06 14:30] LABS: BILIRUBIN,TOTAL 0.4 mg/dL (0.2-1); TOT PROT 7.7 g/dl (6.4-8.2)
[2022-05-06 17:43] VITALS: BP 126/59; PULSE 68; RESP 18; TEMP 98.3
== END 2022-05-06 14:30 | disposition home or self-care (01) ==
LOC: JONCCHEMO 07:30
PROVIDERS: ATTEND Internal Medicine Hematology & Oncology
DX: Z53.8 Procedure and treatment not carried out for other reasons (principal)
CPT/HCPCS: 36415; 80053; 85025; 96365

== ENCOUNTER 2022-05-13 06:42 | Day surgery (SDC) | payer OTHER ==
[2022-05-13] MEDS ORDERED: EPOETIN ALFA-EPBX 10,000 UNIT/ML VIAL SQ ONE (10:00)
[2022-05-13 14:34] LABS: BASO % 0.5 % (0-2.0); EOS % 2.1 % (0-4.5); HEMATOCRIT 32.4 % (32.4-45.2); HEMOGLOBIN 10.8 GM/dL (10.7-15.3); LYMPH % 21.1 % (8-40); MCH 30.8 pg (25.7-33.7); MCHC 33.4 g/dl (32.0-36.0); MEAN CELL VOLUME 92.2 fl (80-96); MEAN PLT VOLUME 8.2 fl (7.5-11.1); MONO % 7.3 % (3.8-10.2); PLATELET COUNT 173 10^3/uL (134-434); RBC 3.52 M/mm3 (3.60-5.2); RDW 12.8 % (11.6-15.6); WHITE BLOOD COUNT 3.8 K/mm3 (4.0-10.0)
[2022-05-13 15:04] LABS: ALBUMIN 4.1 g/dl (3.4-5.0); BLOOD UREA NITROGEN 74.3 mg/dL (7-18)
[2022-05-13 15:07] LABS: CREATININE 3.2 mg/dL (0.55-1.3)
[2022-05-13 15:09] LABS: BILIRUBIN,TOTAL 0.4 mg/dL (0.2-1); TOT PROT 7.6 g/dl (6.4-8.2)
[2022-05-13 18:15] VITALS: BP 158/66; PULSE 61; RESP 20; TEMP 98
== END 2022-05-13 15:30 | disposition home or self-care (01) ==
LOC: JONCCHEMO 06:42
PROVIDERS: ATTEND Internal Medicine Hematology & Oncology
PROC: 3E013GC Introduction of Other Therapeutic Substance into Subcutaneous Tissue, Percutaneous Approach (ICD-10-PCS; principal; 2022-05-13)
DX: D50.9 Iron deficiency anemia, unspecified (principal)
CPT/HCPCS: 36415; 80053; 82728; 83540; 83550; 85025; 96372; Q5106

== ENCOUNTER 2022-05-20 11:27 | Day surgery (SDC) | payer OTHER ==
[2022-05-20 11:52] LABS: BASO % 0.6 % (0-2.0); EOS % 2.7 % (0-4.5); HEMATOCRIT 32.2 % (32.4-45.2); HEMOGLOBIN 10.7 GM/dL (10.7-15.3); LYMPH % 17.8 % (8-40); MCH 30.9 pg (25.7-33.7); MCHC 33.4 g/dl (32.0-36.0); MEAN CELL VOLUME 92.5 fl (80-96); MEAN PLT VOLUME 7.8 fl (7.5-11.1); MONO % 9.3 % (3.8-10.2); NEUT % 69.6 % (42.8-82.8); PLATELET COUNT 205 10^3/uL (134-434); RBC 3.48 M/mm3 (3.60-5.2); RDW 13.3 % (11.6-15.6); WHITE BLOOD COUNT 3.9 K/mm3 (4.0-10.0)
[2022-05-20 12:12] LABS: BLOOD UREA NITROGEN 57.8 mg/dL (7-18); CALCIUM 10.1 mg/dL (8.5-10.1)
[2022-05-20 12:14] LABS: ALBUMIN 4.2 g/dl (3.4-5.0)
[2022-05-20 12:17] LABS: BILIRUBIN,TOTAL 0.4 mg/dL (0.2-1); TOT PROT 7.7 g/dl (6.4-8.2)
[2022-05-20 16:10] VITALS: BP 131/55; PULSE 68; RESP 18; TEMP 97.5
== END 2022-05-20 13:30 | disposition home or self-care (01) ==
LOC: JONCCHEMO 11:27
PROVIDERS: ATTEND Internal Medicine Hematology & Oncology
PROC: 3E033GC Introduction of Other Therapeutic Substance into Peripheral Vein, Percutaneous Approach (ICD-10-PCS; principal; 2022-05-20)
DX: D50.9 Iron deficiency anemia, unspecified (principal)
CPT/HCPCS: 36415; 80053; 85025; 96365; Q5106

== ENCOUNTER 2022-05-27 12:45 | Day surgery (SDC) | payer OTHER ==
[2022-05-27 13:24] LABS: BASO % 0.7 % (0-2.0); EOS % 2.2 % (0-4.5); HEMATOCRIT 32.9 % (32.4-45.2); HEMOGLOBIN 11.2 GM/dL (10.7-15.3); MCH 31.8 pg (25.7-33.7); MEAN CELL VOLUME 93.7 fl (80-96); MEAN PLT VOLUME 8.2 fl (7.5-11.1); NEUT % 73.1 % (42.8-82.8); PLATELET COUNT 192 10^3/uL (134-434); RBC 3.51 M/mm3 (3.60-5.2); RDW 13.8 % (11.6-15.6); WHITE BLOOD COUNT 4.3 K/mm3 (4.0-10.0)
[2022-05-27] MEDS ORDERED: EPOETIN ALFA-EPBX 10,000 UNIT/ML VIAL SQ ONE (13:30)
[2022-05-27 13:56] LABS: CALCIUM 9.8 mg/dL (8.5-10.1)
[2022-05-27 13:57] LABS: ALBUMIN 4.2 g/dl (3.4-5.0); BLOOD UREA NITROGEN 65.4 mg/dL (7-18)
[2022-05-27 14:00] LABS: CREATININE 3.4 mg/dL (0.55-1.3)
[2022-05-27 14:01] LABS: TOT PROT 7.7 g/dl (6.4-8.2)
[2022-05-27 14:02] LABS: BILIRUBIN,TOTAL 0.4 mg/dL (0.2-1)
[2022-05-27 14:14] VITALS: BP 126/59; PULSE 63; RESP 18; TEMP 98.4
== END 2022-05-27 14:10 | disposition home or self-care (01) ==
LOC: JONCCHEMO 12:45
PROVIDERS: ATTEND Internal Medicine Hematology & Oncology
DX: Z53.8 Procedure and treatment not carried out for other reasons (principal)
CPT/HCPCS: 36415; 80053; 85025

== ENCOUNTER 2022-06-03 07:38 | Day surgery (SDC) | payer OTHER ==
[2022-06-03] MEDS ORDERED: EPOETIN ALFA-EPBX 10,000 UNIT/ML VIAL SQ ONE (11:00)
[2022-06-03 13:48] LABS: BASO % 0.7 % (0-2.0); EOS % 2.3 % (0-4.5); HEMATOCRIT 32.6 % (32.4-45.2); HEMOGLOBIN 11.1 GM/dL (10.7-15.3); LYMPH % 19.8 % (8-40); MCH 31.5 pg (25.7-33.7); MCHC 33.9 g/dl (32.0-36.0); MEAN CELL VOLUME 92.9 fl (80-96); MEAN PLT VOLUME 8.6 fl (7.5-11.1); MONO % 7.7 % (3.8-10.2); NEUT % 69.5 % (42.8-82.8); PLATELET COUNT 169 10^3/uL (134-434); RBC 3.51 M/mm3 (3.60-5.2); RDW 13.6 % (11.6-15.6); WHITE BLOOD COUNT 3.7 K/mm3 (4.0-10.0)
[2022-06-03 13:49] LABS: BLOOD UREA NITROGEN 80.4 mg/dL (7-18); CALCIUM 9.6 mg/dL (8.5-10.1)
[2022-06-03 13:52] LABS: ALBUMIN 4.1 g/dl (3.4-5.0); BILIRUBIN,DIRECT 0.1 mg/dL (0.0-0.2); CREATININE 3.4 mg/dL (0.55-1.3)
[2022-06-03 13:54] LABS: TOT PROT 7.5 g/dl (6.4-8.2)
[2022-06-03 13:57] LABS: BILIRUBIN,TOTAL 0.4 mg/dL (0.2-1)
== END 2022-06-03 13:45 | disposition home or self-care (01) ==
LOC: JONCNONCHE 07:38
PROVIDERS: ATTEND Internal Medicine Hematology & Oncology
DX: Z53.8 Procedure and treatment not carried out for other reasons (principal)
CPT/HCPCS: 36415; 80048; 80076; 85025; 96365

== ENCOUNTER 2022-06-17 07:44 | Day surgery (SDC) | payer OTHER ==
[2022-06-17] MEDS ORDERED: EPOETIN ALFA-EPBX 10,000 UNIT/ML VIAL SQ ONE (10:00)
[2022-06-17 13:45] LABS: BASO % 0.6 % (0-2.0); EOS % 2.5 % (0-4.5); HEMATOCRIT 29.7 % (32.4-45.2); HEMOGLOBIN 9.9 GM/dL (10.7-15.3); LYMPH % 20.6 % (8-40); MCH 30.9 pg (25.7-33.7); MCHC 33.2 g/dl (32.0-36.0); MEAN PLT VOLUME 8.2 fl (7.5-11.1); MONO % 8.8 % (3.8-10.2); NEUT % 67.5 % (42.8-82.8); PLATELET COUNT 179 10^3/uL (134-434); RBC 3.19 M/mm3 (3.60-5.2); RDW 12.8 % (11.6-15.6); WHITE BLOOD COUNT 3.7 K/mm3 (4.0-10.0)
[2022-06-17 14:05] LABS: CALCIUM 9.6 mg/dL (8.5-10.1)
[2022-06-17 14:06] LABS: ALBUMIN 3.9 g/dl (3.4-5.0); BLOOD UREA NITROGEN 76.6 mg/dL (7-18)
[2022-06-17 14:08] LABS: BILIRUBIN,DIRECT 0.1 mg/dL (0.0-0.2)
[2022-06-17 14:09] LABS: CREATININE 3.5 mg/dL (0.55-1.3)
[2022-06-17 14:10] LABS: BILIRUBIN,TOTAL 0.4 mg/dL (0.2-1); TOT PROT 7.3 g/dl (6.4-8.2)
[2022-06-17 15:59] VITALS: BP 128/53; PULSE 54; RESP 20; TEMP 97.9
== END 2022-06-17 14:30 | disposition home or self-care (01) ==
LOC: JONCCHEMO 07:44
PROVIDERS: ATTEND Internal Medicine Hematology & Oncology
PROC: 3E013GC Introduction of Other Therapeutic Substance into Subcutaneous Tissue, Percutaneous Approach (ICD-10-PCS; principal; 2022-06-17)
DX: Z76.89 Persons encountering health services in other specified circumstances (principal); D63.8 Anemia in other chronic diseases classified elsewhere
CPT/HCPCS: 36415; 80048; 80076; 85025; 96372; Q5106

== ENCOUNTER 2022-07-01 07:18 | Day surgery (SDC) | payer OTHER ==
[2022-07-01] MEDS ORDERED: EPOETIN ALFA-EPBX 10,000 UNIT/ML VIAL SQ ONE (10:00)
[2022-07-01 12:34] LABS: BASO % 0.7 % (0-2.0); EOS % 2.3 % (0-4.5); HEMATOCRIT 29.6 % (32.4-45.2); LYMPH % 15.2 % (8-40); MCH 31.9 pg (25.7-33.7); MCHC 33.8 g/dl (32.0-36.0); MEAN CELL VOLUME 94.4 fl (80-96); MEAN PLT VOLUME 8.7 fl (7.5-11.1); MONO % 7.6 % (3.8-10.2); NEUT % 74.2 % (42.8-82.8); PLATELET COUNT 171 10^3/uL (134-434); RBC 3.14 M/mm3 (3.60-5.2); RDW 13.6 % (11.6-15.6); WHITE BLOOD COUNT 4.4 K/mm3 (4.0-10.0)
[2022-07-01 12:53] LABS: CALCIUM 9.4 mg/dL (8.5-10.1)
[2022-07-01 12:55] LABS: BLOOD UREA NITROGEN 69.4 mg/dL (7-18); MAGNESIUM 2.4 mg/dL (1.8-2.4)
[2022-07-01 12:57] LABS: BILIRUBIN,DIRECT 0.2 mg/dL (0.0-0.2); CREATININE 3.1 mg/dL (0.55-1.3)
[2022-07-01 12:59] LABS: BILIRUBIN,TOTAL 0.4 mg/dL (0.2-1); TOT PROT 7.6 g/dl (6.4-8.2)
[2022-07-01 15:47] VITALS: BP 125/59; PULSE 57; RESP 18; TEMP 98.2
== END 2022-07-01 13:15 | disposition home or self-care (01) ==
LOC: JONCCHEMO 07:18
PROVIDERS: ATTEND Internal Medicine Hematology & Oncology
PROC: 3E013GC Introduction of Other Therapeutic Substance into Subcutaneous Tissue, Percutaneous Approach (ICD-10-PCS; principal; 2022-07-01)
DX: I12.0 Hypertensive chronic kidney disease with stage 5 chronic kidney disease or end stage renal disease (principal); D63.8 Anemia in other chronic diseases classified elsewhere; E11.9 Type 2 diabetes mellitus without complications; Z85.528 Personal history of other malignant neoplasm of kidney; M81.0 Age-related osteoporosis without current pathological fracture
CPT/HCPCS: 36415; 80048; 80076; 83735; 85025; 96372; Q5106

== ENCOUNTER 2022-07-08 14:41 | Day surgery (SDC) | payer OTHER ==
[2022-07-08 16:38] VITALS: BP 161/69; PULSE 67; RESP 20; TEMP 98.1
== END 2022-07-08 14:55 | disposition home or self-care (01) ==
LOC: JONCCHEMO 14:41
PROVIDERS: ATTEND Internal Medicine Hematology & Oncology
PROC: 3E013GC Introduction of Other Therapeutic Substance into Subcutaneous Tissue, Percutaneous Approach (ICD-10-PCS; principal; 2022-07-08)
DX: I12.0 Hypertensive chronic kidney disease with stage 5 chronic kidney disease or end stage renal disease (principal); D63.8 Anemia in other chronic diseases classified elsewhere; E11.9 Type 2 diabetes mellitus without complications; M81.0 Age-related osteoporosis without current pathological fracture; Z85.528 Personal history of other malignant neoplasm of kidney
CPT/HCPCS: 96372; Q5106

== ENCOUNTER 2022-07-22 13:25 | Day surgery (SDC) | payer OTHER ==
[2022-07-22 14:11] LABS: BASO % 0.7 % (0-2.0); EOS % 1.6 % (0-4.5); HEMATOCRIT 30.1 % (32.4-45.2); HEMOGLOBIN 9.6 GM/dL (10.7-15.3); LYMPH % 14.7 % (8-40); MCH 30.1 pg (25.7-33.7); MEAN CELL VOLUME 94.1 fl (80-96); MONO % 6.3 % (3.8-10.2); NEUT % 76.7 % (42.8-82.8); PLATELET COUNT 227 10^3/uL (134-434); RDW 13.8 % (11.6-15.6); WHITE BLOOD COUNT 3.9 K/mm3 (4.0-10.0)
[2022-07-22] MEDS ORDERED: EPOETIN ALFA-EPBX 10,000 UNIT/ML VIAL SQ ONE (14:15)
[2022-07-22 14:42] LABS: BLOOD UREA NITROGEN 75.7 mg/dL (7-18); CALCIUM 9.8 mg/dL (8.5-10.1); MAGNESIUM 2.4 mg/dL (1.8-2.4)
[2022-07-22 14:45] LABS: BILIRUBIN,DIRECT 0.1 mg/dL (0.0-0.2); CREATININE 2.8 mg/dL (0.55-1.3); URIC ACID 7.9 mg/dL (2.6-7.2)
[2022-07-22 14:47] LABS: BILIRUBIN,TOTAL 0.3 mg/dL (0.2-1); TOT PROT 7.6 g/dl (6.4-8.2)
[2022-07-22 16:45] VITALS: BP 123/51; PULSE 58; RESP 18; TEMP 97.9
== END 2022-07-22 15:00 | disposition home or self-care (01) ==
LOC: JONCCHEMO 13:25
PROVIDERS: ATTEND Internal Medicine Hematology & Oncology
PROC: 3E013GC Introduction of Other Therapeutic Substance into Subcutaneous Tissue, Percutaneous Approach (ICD-10-PCS; principal; 2022-07-22)
DX: I12.0 Hypertensive chronic kidney disease with stage 5 chronic kidney disease or end stage renal disease (principal); D63.8 Anemia in other chronic diseases classified elsewhere; E11.9 Type 2 diabetes mellitus without complications; M81.0 Age-related osteoporosis without current pathological fracture; Z85.528 Personal history of other malignant neoplasm of kidney
CPT/HCPCS: 36415; 80048; 80076; 83615; 83735; 84550; 85025; 96372; Q5106

== ENCOUNTER 2022-07-29 10:43 | Day surgery (SDC) | payer OTHER ==
[2022-07-29 11:25] LABS: BASO % 0.6 % (0-2.0); HEMATOCRIT 29.9 % (32.4-45.2); HEMOGLOBIN 9.7 GM/dL (10.7-15.3); LYMPH % 15.5 % (8-40); MCH 30.6 pg (25.7-33.7); MCHC 32.6 g/dl (32.0-36.0); MEAN CELL VOLUME 94.1 fl (80-96); MEAN PLT VOLUME 8.5 fl (7.5-11.1); MONO % 7.5 % (3.8-10.2); NEUT % 73.4 % (42.8-82.8); PLATELET COUNT 275 10^3/uL (134-434); RBC 3.18 M/mm3 (3.60-5.2); RDW 14.4 % (11.6-15.6); WHITE BLOOD COUNT 4.4 K/mm3 (4.0-10.0)
[2022-07-29 11:44] LABS: MAGNESIUM 2.6 mg/dL (1.8-2.4)
[2022-07-29 11:45] LABS: BLOOD UREA NITROGEN 90.6 mg/dL (7-18)
[2022-07-29 11:46] LABS: ALBUMIN 4.2 g/dl (3.4-5.0)
[2022-07-29 11:47] LABS: URIC ACID 8.6 mg/dL (2.6-7.2)
[2022-07-29 11:48] LABS: BILIRUBIN,DIRECT 0.2 mg/dL (0.0-0.2); CREATININE 3.5 mg/dL (0.55-1.3)
[2022-07-29 11:49] LABS: TOT PROT 7.8 g/dl (6.4-8.2)
[2022-07-29 11:52] LABS: BILIRUBIN,TOTAL 0.4 mg/dL (0.2-1)
[2022-07-29 14:48] VITALS: BP 120/51; PULSE 61; RESP 20; TEMP 97.9
== END 2022-07-29 12:15 | disposition home or self-care (01) ==
LOC: JONCCHEMO 10:43
PROVIDERS: ATTEND Internal Medicine Hematology & Oncology
PROC: 3E013GC Introduction of Other Therapeutic Substance into Subcutaneous Tissue, Percutaneous Approach (ICD-10-PCS; principal; 2022-07-29)
DX: I12.0 Hypertensive chronic kidney disease with stage 5 chronic kidney disease or end stage renal disease (principal); D63.8 Anemia in other chronic diseases classified elsewhere; E11.9 Type 2 diabetes mellitus without complications; M81.0 Age-related osteoporosis without current pathological fracture; Z85.528 Personal history of other malignant neoplasm of kidney
CPT/HCPCS: 36415; 80048; 80076; 83615; 83735; 84550; 85025; 96372; Q5106

== ENCOUNTER 2022-08-26 11:04 | Day surgery (SDC) | payer OTHER ==
[2022-08-26] MEDS ORDERED: EPOETIN ALFA-EPBX 10,000 UNIT/ML VIAL SQ ONE (11:15)
[2022-08-26 11:38] LABS: BASO % 0.5 % (0-2.0); EOS % 1.9 % (0-4.5); HEMATOCRIT 29.1 % (32.4-45.2); HEMOGLOBIN 9.8 GM/dL (10.7-15.3); LYMPH % 18.6 % (8-40); MCH 31.1 pg (25.7-33.7); MCHC 33.7 g/dl (32.0-36.0); MEAN CELL VOLUME 92.1 fl (80-96); MEAN PLT VOLUME 8.5 fl (7.5-11.1); MONO % 7.9 % (3.8-10.2); NEUT % 71.1 % (42.8-82.8); PLATELET COUNT 170 10^3/uL (134-434); RBC 3.16 M/mm3 (3.60-5.2); RDW 13.7 % (11.6-15.6); WHITE BLOOD COUNT 3.7 K/mm3 (4.0-10.0)
[2022-08-26 11:57] LABS: ALBUMIN 4.1 g/dl (3.4-5.0); BLOOD UREA NITROGEN 82.2 mg/dL (7-18); CALCIUM 9.9 mg/dL (8.5-10.1); MAGNESIUM 2.4 mg/dL (1.8-2.4)
[2022-08-26 11:59] LABS: BILIRUBIN,DIRECT 0.1 mg/dL (0.0-0.2); URIC ACID 7.4 mg/dL (2.6-7.2)
[2022-08-26 12:22] LABS: BILIRUBIN,TOTAL 0.3 mg/dL (0.2-1); TOT PROT 7.5 g/dl (6.4-8.2)
[2022-08-26 15:52] VITALS: BP 136/70; PULSE 59; RESP 18; TEMP 98.1
== END 2022-08-26 11:45 | disposition home or self-care (01) ==
LOC: JONCCHEMO 11:04
PROVIDERS: ATTEND Internal Medicine Hematology & Oncology
PROC: 3E013GC Introduction of Other Therapeutic Substance into Subcutaneous Tissue, Percutaneous Approach (ICD-10-PCS; principal; 2022-08-26)
DX: I12.0 Hypertensive chronic kidney disease with stage 5 chronic kidney disease or end stage renal disease (principal); D63.8 Anemia in other chronic diseases classified elsewhere; E11.9 Type 2 diabetes mellitus without complications; M81.0 Age-related osteoporosis without current pathological fracture; Z85.528 Personal history of other malignant neoplasm of kidney
CPT/HCPCS: 36415; 80048; 80076; 83615; 83735; 84550; 85025; 96372; Q5106

== ENCOUNTER 2022-09-02 13:21 | Day surgery (SDC) | payer OTHER ==
[2022-09-02 14:31] LABS: HEMATOCRIT 31.7 % (32.4-45.2); HEMOGLOBIN 10.5 GM/dL (10.7-15.3); LYMPH % 18.1 % (8-40); MCH 30.7 pg (25.7-33.7); MCHC 33.2 g/dl (32.0-36.0); MEAN CELL VOLUME 92.6 fl (80-96); MEAN PLT VOLUME 8.5 fl (7.5-11.1); MONO % 8.6 % (3.8-10.2); NEUT % 70.7 % (42.8-82.8); PLATELET COUNT 206 10^3/uL (134-434); RBC 3.43 M/mm3 (3.60-5.2); RDW 14.3 % (11.6-15.6); WHITE BLOOD COUNT 3.8 K/mm3 (4.0-10.0)
[2022-09-02 14:32] LABS: BASO % 0.4 % (0-2.0); EOS % 2.2 % (0-4.5)
[2022-09-02 15:01] LABS: ALBUMIN 4.3 g/dl (3.4-5.0); BLOOD UREA NITROGEN 78.4 mg/dL (7-18)
[2022-09-02 15:02] LABS: CALCIUM 9.6 mg/dL (8.5-10.1); MAGNESIUM 2.6 mg/dL (1.8-2.4)
[2022-09-02 15:03] LABS: URIC ACID 8.6 mg/dL (2.6-7.2)
[2022-09-02 15:04] LABS: BILIRUBIN,DIRECT 0.1 mg/dL (0.0-0.2); CREATININE 3.4 mg/dL (0.55-1.3); TOT PROT 8.1 g/dl (6.4-8.2)
[2022-09-02 15:06] LABS: BILIRUBIN,TOTAL 0.4 mg/dL (0.2-1)
[2022-09-02 15:29] VITALS: BP 142/56; PULSE 59; RESP 18; TEMP 97.5
== END 2022-09-02 14:00 | disposition home or self-care (01) ==
LOC: JONCCHEMO 13:21
PROVIDERS: ATTEND Internal Medicine Hematology & Oncology
PROC: 3E013GC Introduction of Other Therapeutic Substance into Subcutaneous Tissue, Percutaneous Approach (ICD-10-PCS; principal; 2022-09-02)
DX: I12.0 Hypertensive chronic kidney disease with stage 5 chronic kidney disease or end stage renal disease (principal); D63.8 Anemia in other chronic diseases classified elsewhere; E11.9 Type 2 diabetes mellitus without complications; M81.0 Age-related osteoporosis without current pathological fracture; Z85.528 Personal history of other malignant neoplasm of kidney
CPT/HCPCS: 36415; 80048; 80076; 82728; 83540; 83550; 83615; 83735; 84550; 85025; 96372; Q5106

== ENCOUNTER 2022-09-16 14:20 | Day surgery (SDC) | payer OTHER ==
[2022-09-16 14:24] LABS: BASO % 0.6 % (0-2.0); EOS % 2.7 % (0-4.5); HEMATOCRIT 32.3 % (32.4-45.2); HEMOGLOBIN 10.4 GM/dL (10.7-15.3); LYMPH % 22.7 % (8-40); MCHC 32.2 g/dl (32.0-36.0); MEAN CELL VOLUME 93.1 fl (80-96); MEAN PLT VOLUME 8.8 fl (7.5-11.1); MONO % 9.2 % (3.8-10.2); NEUT % 64.8 % (42.8-82.8); PLATELET COUNT 180 10^3/uL (134-434); RBC 3.47 M/mm3 (3.60-5.2); RDW 14.2 % (11.6-15.6); WHITE BLOOD COUNT 2.8 K/mm3 (4.0-10.0)
[2022-09-16 14:51] LABS: CALCIUM 10.1 mg/dL (8.5-10.1); MAGNESIUM 2.4 mg/dL (1.8-2.4)
[2022-09-16 14:52] LABS: ALBUMIN 4.2 g/dl (3.4-5.0); BLOOD UREA NITROGEN 93.3 mg/dL (7-18)
[2022-09-16 14:54] LABS: CREATININE 3.5 mg/dL (0.55-1.3); URIC ACID 8.4 mg/dL (2.6-7.2)
[2022-09-16 14:55] LABS: BILIRUBIN,DIRECT 0.1 mg/dL (0.0-0.2)
[2022-09-16 14:56] LABS: TOT PROT 7.8 g/dl (6.4-8.2)
[2022-09-16 14:57] LABS: BILIRUBIN,TOTAL 0.3 mg/dL (0.2-1)
[2022-09-16 16:25] VITALS: BP 149/60; PULSE 62; RESP 16; TEMP 97.3
== END 2022-09-16 14:50 | disposition home or self-care (01) ==
LOC: JONCCHEMO 14:20
PROVIDERS: ATTEND Internal Medicine Hematology & Oncology
PROC: 3E013GC Introduction of Other Therapeutic Substance into Subcutaneous Tissue, Percutaneous Approach (ICD-10-PCS; principal; 2022-09-16)
DX: D63.8 Anemia in other chronic diseases classified elsewhere (principal)
CPT/HCPCS: 36415; 80048; 80076; 83615; 83735; 84550; 85025; 96372; Q5106

== ENCOUNTER 2022-10-14 13:37 | Day surgery (SDC) | payer OTHER ==
[2022-10-14 13:58] LABS: BASO % 0.5 % (0-2.0); EOS % 2.2 % (0-4.5); HEMATOCRIT 30.1 % (32.4-45.2); HEMOGLOBIN 9.6 GM/dL (10.7-15.3); LYMPH % 20.8 % (8-40); MCH 29.3 pg (25.7-33.7); MCHC 32.1 g/dl (32.0-36.0); MEAN CELL VOLUME 91.3 fl (80-96); MEAN PLT VOLUME 8.4 fl (7.5-11.1); MONO % 11.2 % (3.8-10.2); NEUT % 65.3 % (42.8-82.8); PLATELET COUNT 154 10^3/uL (134-434); RBC 3.29 M/mm3 (3.60-5.2); RDW 13.5 % (11.6-15.6); WHITE BLOOD COUNT 3.1 K/mm3 (4.0-10.0)
[2022-10-14 14:15] LABS: CALCIUM 9.8 mg/dL (8.5-10.1)
[2022-10-14 14:16] LABS: ALBUMIN 4.1 g/dl (3.4-5.0); MAGNESIUM 2.4 mg/dL (1.8-2.4)
[2022-10-14 14:18] LABS: BILIRUBIN,DIRECT 0.1 mg/dL (0.0-0.2); URIC ACID 8.1 mg/dL (2.6-7.2)
[2022-10-14 14:20] LABS: TOT PROT 7.7 g/dl (6.4-8.2)
[2022-10-14 14:33] LABS: BILIRUBIN,TOTAL 0.3 mg/dL (0.2-1); CREATININE 3.1 mg/dL (0.55-1.3)
[2022-10-14 17:27] VITALS: BP 146/68; PULSE 87; RESP 18; TEMP 97.8
== END 2022-10-14 17:28 | disposition home or self-care (01) ==
LOC: JONCCHEMO 13:37
PROVIDERS: ATTEND Internal Medicine Hematology & Oncology
PROC: 3E013GC Introduction of Other Therapeutic Substance into Subcutaneous Tissue, Percutaneous Approach (ICD-10-PCS; principal; 2022-10-14)
DX: I12.0 Hypertensive chronic kidney disease with stage 5 chronic kidney disease or end stage renal disease (principal); D63.8 Anemia in other chronic diseases classified elsewhere; E11.9 Type 2 diabetes mellitus without complications; M81.0 Age-related osteoporosis without current pathological fracture
CPT/HCPCS: 36415; 80048; 80076; 83615; 83735; 84550; 85025; 96372; Q5106

== ENCOUNTER 2022-11-17 15:04 | Day surgery (SDC) | payer OTHER ==
[2022-11-17] MEDS ORDERED: EPOETIN ALFA-EPBX 10,000 UNIT/ML VIAL SQ ONE (15:15)
[2022-11-17 17:18] VITALS: BP 131/61; PULSE 59; RESP 20; TEMP 98.4
== END 2022-11-17 17:25 | disposition home or self-care (01) ==
LOC: JONCCHEMO 15:04
PROVIDERS: ATTEND Internal Medicine Hematology & Oncology
PROC: 3E013GC Introduction of Other Therapeutic Substance into Subcutaneous Tissue, Percutaneous Approach (ICD-10-PCS; principal; 2022-11-17)
DX: I12.0 Hypertensive chronic kidney disease with stage 5 chronic kidney disease or end stage renal disease (principal); D63.8 Anemia in other chronic diseases classified elsewhere; E11.9 Type 2 diabetes mellitus without complications; M81.0 Age-related osteoporosis without current pathological fracture
CPT/HCPCS: 82962; 96372; Q5106

== ENCOUNTER 2022-11-25 12:34 | Day surgery (SDC) | payer OTHER ==
[2022-11-25 13:06] LABS: BASO % 0.3 % (0-2.0); HEMATOCRIT 29.1 % (32.4-45.2); HEMOGLOBIN 9.5 GM/dL (10.7-15.3); LYMPH % 14.5 % (8-40); MCH 30.9 pg (25.7-33.7); MCHC 32.7 g/dl (32.0-36.0); MEAN CELL VOLUME 94.7 fl (80-96); NEUT % 72.2 % (42.8-82.8); PLATELET COUNT 155 10^3/uL (134-434); RBC 3.07 M/mm3 (3.60-5.2); RDW 15.5 % (11.6-15.6)
[2022-11-25 13:51] LABS: CALCIUM 9.9 mg/dL (8.5-10.1)
[2022-11-25 13:52] LABS: MAGNESIUM 2.3 mg/dL (1.8-2.4)
[2022-11-25 13:53] LABS: ALBUMIN 4.2 g/dl (3.4-5.0)
[2022-11-25 13:54] LABS: URIC ACID 8.2 mg/dL (2.6-7.2)
[2022-11-25 13:55] LABS: CREATININE 3.9 mg/dL (0.55-1.3)
[2022-11-25 13:56] LABS: BILIRUBIN,DIRECT 0.2 mg/dL (0.0-0.2)
[2022-11-25 13:58] LABS: BILIRUBIN,TOTAL 0.6 mg/dL (0.2-1); TOT PROT 7.4 g/dl (6.4-8.2)
[2022-11-25 16:51] VITALS: BP 123/57; PULSE 53; RESP 18; TEMP 97.2
== END 2022-11-25 14:00 | disposition home or self-care (01) ==
LOC: JONCCHEMO 12:34
PROVIDERS: ATTEND Internal Medicine Hematology & Oncology
PROC: 3E013GC Introduction of Other Therapeutic Substance into Subcutaneous Tissue, Percutaneous Approach (ICD-10-PCS; principal; 2022-11-25)
DX: I12.0 Hypertensive chronic kidney disease with stage 5 chronic kidney disease or end stage renal disease (principal); D63.8 Anemia in other chronic diseases classified elsewhere; E11.9 Type 2 diabetes mellitus without complications; Z76.89 Persons encountering health services in other specified circumstances
CPT/HCPCS: 36415; 80048; 80076; 83615; 83735; 84550; 85025; 96372; Q5106

== ENCOUNTER 2022-12-09 13:03 | Day surgery (SDC) | payer OTHER ==
[2022-12-09 13:47] LABS: BASO % 0.9 % (0-2.0); EOS % 2.1 % (0-4.5); HEMATOCRIT 30.2 % (32.4-45.2); HEMOGLOBIN 9.9 GM/dL (10.7-15.3); MCH 31.2 pg (25.7-33.7); MCHC 32.9 g/dl (32.0-36.0); MEAN CELL VOLUME 94.8 fl (80-96); MEAN PLT VOLUME 8.7 fl (7.5-11.1); MONO % 10.1 % (3.8-10.2); NEUT % 70.9 % (42.8-82.8); PLATELET COUNT 170 10^3/uL (134-434); RBC 3.18 M/mm3 (3.60-5.2); RDW 14.6 % (11.6-15.6); WHITE BLOOD COUNT 3.4 K/mm3 (4.0-10.0)
[2022-12-09 14:06] LABS: CALCIUM 9.9 mg/dL (8.5-10.1)
[2022-12-09 14:07] LABS: ALBUMIN 4.3 g/dl (3.4-5.0); BLOOD UREA NITROGEN 82.1 mg/dL (7-18); MAGNESIUM 2.1 mg/dL (1.8-2.4)
[2022-12-09 14:08] LABS: URIC ACID 7.2 mg/dL (2.6-7.2)
[2022-12-09 14:09] LABS: BILIRUBIN,DIRECT 0.2 mg/dL (0.0-0.2)
[2022-12-09 14:10] LABS: CREATININE 3.2 mg/dL (0.55-1.3)
[2022-12-09 14:11] LABS: BILIRUBIN,TOTAL 0.4 mg/dL (0.2-1); TOT PROT 7.6 g/dl (6.4-8.2)
[2022-12-09 15:40] VITALS: BP 138/55; PULSE 58; RESP 20; TEMP 97.5
== END 2022-12-09 13:35 | disposition home or self-care (01) ==
LOC: JONCCHEMO 13:03
PROVIDERS: ATTEND Internal Medicine Hematology & Oncology
PROC: 3E013GC Introduction of Other Therapeutic Substance into Subcutaneous Tissue, Percutaneous Approach (ICD-10-PCS; principal; 2022-12-09)
DX: I12.0 Hypertensive chronic kidney disease with stage 5 chronic kidney disease or end stage renal disease (principal); D63.8 Anemia in other chronic diseases classified elsewhere; E11.9 Type 2 diabetes mellitus without complications
CPT/HCPCS: 36415; 80048; 80076; 82728; 83540; 83550; 83615; 83735; 84550; 85025; 96372; Q5106

== ENCOUNTER 2022-12-15 13:41 | Day surgery (SDC) | payer OTHER ==
[2022-12-15 17:02] VITALS: BP 146/60; PULSE 63; RESP 18; TEMP 97.3
== END 2022-12-15 14:15 | disposition home or self-care (01) ==
LOC: JONCCHEMO 13:41
PROVIDERS: ATTEND Internal Medicine Hematology & Oncology
PROC: 3E013GC Introduction of Other Therapeutic Substance into Subcutaneous Tissue, Percutaneous Approach (ICD-10-PCS; principal; 2022-12-15)
DX: I12.0 Hypertensive chronic kidney disease with stage 5 chronic kidney disease or end stage renal disease (principal); D63.8 Anemia in other chronic diseases classified elsewhere; E11.9 Type 2 diabetes mellitus without complications; C64.2 Malignant neoplasm of left kidney, except renal pelvis
CPT/HCPCS: 96372; Q5106

== ENCOUNTER 2022-12-23 13:27 | Day surgery (SDC) | payer OTHER ==
[2022-12-23] MEDS ORDERED: EPOETIN ALFA-EPBX 10,000 UNIT/ML VIAL SQ ONE (14:30)
[2022-12-23 14:45] LABS: BASO % 0.6 % (0-2.0); EOS % 1.7 % (0-4.5); HEMATOCRIT 32.4 % (32.4-45.2); HEMOGLOBIN 10.6 GM/dL (10.7-15.3); LYMPH % 15.9 % (8-40); MCH 31.1 pg (25.7-33.7); MCHC 32.6 g/dl (32.0-36.0); MEAN CELL VOLUME 95.5 fl (80-96); MEAN PLT VOLUME 8.5 fl (7.5-11.1); MONO % 7.1 % (3.8-10.2); NEUT % 74.7 % (42.8-82.8); PLATELET COUNT 190 10^3/uL (134-434); RBC 3.39 M/mm3 (3.60-5.2); RDW 14.5 % (11.6-15.6)
[2022-12-23 15:27] LABS: CHLORIDE 108 mmol/L (98-107); SODIUM 142 mmol/L (136-145)
[2022-12-23 15:29] LABS: ALBUMIN 4.6 g/dl (3.4-5.0); CALCIUM 10.5 mg/dL (8.5-10.1)
[2022-12-23 15:30] LABS: ANION GAP 9 MMOL/L (8-16); CO2 24 mmol/L (21-32); GLUCOSE,RANDOM 150 mg/dL (74-106); MAGNESIUM 2.5 mg/dL (1.8-2.4)
[2022-12-23 15:32] LABS: SGPT/ALT 20 U/L (13-61)
[2022-12-23 15:33] LABS: CREATININE 3.3 mg/dL (0.55-1.3); SGOT/AST 7 U/L (15-37)
[2022-12-23 15:34] LABS: BILIRUBIN,TOTAL 0.5 mg/dL (0.2-1); LDH 220 U/L (84-246); TOT PROT 8.1 g/dl (6.4-8.2)
[2022-12-23 15:36] LABS: ALK PHOS 120 U/L (45-117)
[2022-12-23 15:37] LABS: URIC ACID 8.5 mg/dL (2.6-7.2)
[2022-12-23 16:01] LABS: BLOOD UREA NITROGEN 105.4 mg/dL (7-18)
[2022-12-23 17:01] VITALS: BP 154/53; PULSE 69; RESP 18; TEMP 97.9
== END 2022-12-23 15:30 | disposition home or self-care (01) ==
LOC: JONCCHEMO 13:27 → JONCNONCHE 13:27
PROVIDERS: ATTEND Internal Medicine Hematology & Oncology
PROC: 3E013GC Introduction of Other Therapeutic Substance into Subcutaneous Tissue, Percutaneous Approach (ICD-10-PCS; principal; 2022-12-23)
DX: I12.0 Hypertensive chronic kidney disease with stage 5 chronic kidney disease or end stage renal disease (principal); D63.8 Anemia in other chronic diseases classified elsewhere; E11.9 Type 2 diabetes mellitus without complications; C64.2 Malignant neoplasm of left kidney, except renal pelvis
CPT/HCPCS: 36415; 80053; 83615; 83735; 84550; 85025; 96372; Q5106

== ENCOUNTER 2022-12-29 14:35 | Day surgery (SDC) | payer OTHER ==
[2022-12-29 15:07] VITALS: BP 143/61; PULSE 57; RESP 18; TEMP 97.5
[2022-12-29 16:26] LABS: CALCIUM 10.5 mg/dL (8.5-10.1)
[2022-12-29 16:30] LABS: CREATININE 3.1 mg/dL (0.55-1.3)
== END 2022-12-29 15:34 | disposition home or self-care (01) ==
LOC: JONCCHEMO 14:35
PROVIDERS: ATTEND Internal Medicine Hematology & Oncology
PROC: 3E013GC Introduction of Other Therapeutic Substance into Subcutaneous Tissue, Percutaneous Approach (ICD-10-PCS; principal; 2022-12-29)
DX: I12.0 Hypertensive chronic kidney disease with stage 5 chronic kidney disease or end stage renal disease (principal); D63.8 Anemia in other chronic diseases classified elsewhere; E11.9 Type 2 diabetes mellitus without complications; C64.2 Malignant neoplasm of left kidney, except renal pelvis
CPT/HCPCS: 36415; 80048; 96372; Q5106

== ENCOUNTER 2023-01-12 14:38 | Day surgery (SDC) | payer OTHER ==
[2023-01-12] MEDS ORDERED: EPOETIN ALFA-EPBX 10,000 UNIT/ML VIAL SQ ONE (15:00)
[2023-01-12 18:10] VITALS: BP 175/74; PULSE 69; RESP 18; TEMP 97.9
== END 2023-01-12 15:45 | disposition home or self-care (01) ==
LOC: JONCCHEMO 14:38
PROVIDERS: ATTEND Internal Medicine Hematology & Oncology
PROC: 3E013GC Introduction of Other Therapeutic Substance into Subcutaneous Tissue, Percutaneous Approach (ICD-10-PCS; principal; 2023-01-12)
DX: I12.0 Hypertensive chronic kidney disease with stage 5 chronic kidney disease or end stage renal disease (principal); D63.8 Anemia in other chronic diseases classified elsewhere; E11.9 Type 2 diabetes mellitus without complications; C64.2 Malignant neoplasm of left kidney, except renal pelvis
CPT/HCPCS: 96372; Q5106

== ENCOUNTER 2023-02-02 13:10 | Day surgery (SDC) | payer OTHER ==
[~2023-02-02 13:10] MED LIST changes: +EPOETIN ALFA 10,000 UNIT/1 ML VIAL SQ ONE; -EPOETIN ALFA-EPBX 10,000 UNIT/ML VIAL SQ ONE
[2023-02-02 14:48] LABS: BASO % 0.5 % (0-2.0); HEMATOCRIT 30.6 % (32.4-45.2); HEMOGLOBIN 10.7 GM/dL (10.7-15.3); LYMPH % 17.9 % (8-40); MCH 31.7 pg (25.7-33.7); MCHC 34.9 g/dl (32.0-36.0); MEAN CELL VOLUME 90.9 fl (80-96); MEAN PLT VOLUME 10.6 fl (7.5-11.1); MONO % 8.2 % (3.8-10.2); NEUT % 71.4 % (42.8-82.8); PLATELET COUNT 140 10^3/uL (134-434); RBC 3.37 M/mm3 (3.60-5.2); RDW 13.2 % (11.6-15.6); WHITE BLOOD COUNT 3.6 K/mm3 (4.0-10.0)
[2023-02-02 15:15] LABS: BLOOD UREA NITROGEN 74.1 mg/dL (7-18); CALCIUM 10.1 mg/dL (8.5-10.1); MAGNESIUM 2.3 mg/dL (1.8-2.4)
[2023-02-02 15:16] LABS: ALBUMIN 4.2 g/dl (3.4-5.0)
[2023-02-02 15:17] LABS: BILIRUBIN,DIRECT 0.2 mg/dL (0.0-0.2)
[2023-02-02 15:18] LABS: CREATININE 2.8 mg/dL (0.55-1.3); URIC ACID 6.4 mg/dL (2.6-7.2)
[2023-02-02 15:19] LABS: BILIRUBIN,TOTAL 0.4 mg/dL (0.2-1)
[2023-02-02 15:21] LABS: TOT PROT 7.7 g/dl (6.4-8.2)
[2023-02-02 17:56] VITALS: BP 160/67; PULSE 64; RESP 20; TEMP 98
== END 2023-02-02 15:30 | disposition home or self-care (01) ==
LOC: JONCCHEMO 13:10
PROVIDERS: ATTEND Internal Medicine Hematology & Oncology
PROC: 3E013GC Introduction of Other Therapeutic Substance into Subcutaneous Tissue, Percutaneous Approach (ICD-10-PCS; principal; 2023-02-02)
DX: I12.0 Hypertensive chronic kidney disease with stage 5 chronic kidney disease or end stage renal disease (principal); D63.8 Anemia in other chronic diseases classified elsewhere; E11.9 Type 2 diabetes mellitus without complications; C64.2 Malignant neoplasm of left kidney, except renal pelvis
CPT/HCPCS: 36415; 80048; 80076; 83615; 83735; 84550; 85025; 96372; J0885

== ENCOUNTER 2023-02-09 13:31 | Day surgery (SDC) | payer OTHER ==
[~2023-02-09 13:31] MED LIST changes: -EPOETIN ALFA 10,000 UNIT/1 ML VIAL SQ ONE; +EPOETIN ALFA-EPBX 10,000 UNIT/ML VIAL SQ ONE
[2023-02-09 15:33] VITALS: BP 176/71; PULSE 69; RESP 20; TEMP 98.2
== END 2023-02-09 15:05 | disposition home or self-care (01) ==
LOC: JONCCHEMO 13:31
PROVIDERS: ATTEND Internal Medicine Hematology & Oncology
PROC: 3E013GC Introduction of Other Therapeutic Substance into Subcutaneous Tissue, Percutaneous Approach (ICD-10-PCS; principal; 2023-02-09)
DX: I12.0 Hypertensive chronic kidney disease with stage 5 chronic kidney disease or end stage renal disease (principal); D63.8 Anemia in other chronic diseases classified elsewhere; E11.9 Type 2 diabetes mellitus without complications; C64.2 Malignant neoplasm of left kidney, except renal pelvis
CPT/HCPCS: 96372; Q5106

== ENCOUNTER 2023-02-16 12:55 | Day surgery (SDC) | payer OTHER ==
[2023-02-16 13:38] LABS: BASO % 0.3 % (0-2.0); EOS % 2.8 % (0-4.5); HEMATOCRIT 32.7 % (32.4-45.2); HEMOGLOBIN 10.9 GM/dL (10.7-15.3); MCH 30.8 pg (25.7-33.7); MCHC 33.3 g/dl (32.0-36.0); MEAN CELL VOLUME 92.6 fl (80-96); MEAN PLT VOLUME 8.1 fl (7.5-11.1); NEUT % 72.9 % (42.8-82.8); PLATELET COUNT 173 10^3/uL (134-434); RBC 3.54 M/mm3 (3.60-5.2); RDW 14.6 % (11.6-15.6); WHITE BLOOD COUNT 3.8 K/mm3 (4.0-10.0)
[2023-02-16] MEDS ORDERED: IRON SUCROSE INJECTION 200 MG in SODIUM CHLORIDE 100 ML IVPB ONE (14:00)
[2023-02-16 14:07] LABS: ALBUMIN 4.2 g/dl (3.4-5.0)
[2023-02-16 14:11] LABS: BILIRUBIN,DIRECT 0.2 mg/dL (0.0-0.2)
[2023-02-16 14:12] LABS: BILIRUBIN,TOTAL 0.5 mg/dL (0.2-1); TOT PROT 7.7 g/dl (6.4-8.2)
[2023-02-16 14:18] LABS: POTASSIUM 4.9 mmol/L (3.5-5.1)
[2023-02-16 14:20] LABS: CALCIUM 9.9 mg/dL (8.5-10.1)
[2023-02-16 14:22] LABS: BLOOD UREA NITROGEN 59.1 mg/dL (7-18)
[2023-02-16 14:23] LABS: URIC ACID 7.5 mg/dL (2.6-7.2)
[2023-02-16 14:24] LABS: CREATININE 2.7 mg/dL (0.55-1.3)
[2023-02-16 17:19] VITALS: PULSE 67; RESP 20; TEMP 98
[2023-02-16 17:23] VITALS: BP 190/74
== END 2023-02-16 15:05 | disposition home or self-care (01) ==
LOC: J7W 12:55 → JONCCHEMO 12:55
PROVIDERS: ATTEND Internal Medicine Hematology & Oncology
PROC: 3E033GC Introduction of Other Therapeutic Substance into Peripheral Vein, Percutaneous Approach (ICD-10-PCS; principal; 2023-02-16)
DX: I12.0 Hypertensive chronic kidney disease with stage 5 chronic kidney disease or end stage renal disease (principal); D63.8 Anemia in other chronic diseases classified elsewhere; C64.2 Malignant neoplasm of left kidney, except renal pelvis
CPT/HCPCS: 36415; 80048; 80076; 83615; 83735; 84550; 85025; 96365; 96372; J1756; Q5106

== ENCOUNTER 2023-02-23 11:31 | Day surgery (SDC) | payer OTHER ==
[~2023-02-23 11:31] MED LIST changes: +IRON SUCROSE INJECTION 200 MG in SODIUM CHLORIDE 100 ML IVPB ONE
[2023-02-23 12:19] LABS: BASO % 0.3 % (0-2.0); EOS % 1.8 % (0-4.5); LYMPH % 13.5 % (8-40); MCH 30.7 pg (25.7-33.7); MCHC 32.5 g/dl (32.0-36.0); MEAN CELL VOLUME 94.6 fl (80-96); MEAN PLT VOLUME 9.1 fl (7.5-11.1); MONO % 7.1 % (3.8-10.2); NEUT % 77.3 % (42.8-82.8); PLATELET COUNT 178 10^3/uL (134-434); RBC 3.59 M/mm3 (3.60-5.2); RDW 15.6 % (11.6-15.6); WHITE BLOOD COUNT 4.5 K/mm3 (4.0-10.0)
[2023-02-23 12:34] LABS: POTASSIUM 4.9 mmol/L (3.5-5.1)
[2023-02-23 12:37] LABS: ALBUMIN 4.2 g/dl (3.4-5.0); BLOOD UREA NITROGEN 71.7 mg/dL (7-18); MAGNESIUM 2.1 mg/dL (1.8-2.4)
[2023-02-23 12:39] LABS: BILIRUBIN,DIRECT 0.2 mg/dL (0.0-0.2); URIC ACID 7.1 mg/dL (2.6-7.2)
[2023-02-23 12:40] LABS: CREATININE 3.1 mg/dL (0.55-1.3)
[2023-02-23 12:41] LABS: BILIRUBIN,TOTAL 0.7 mg/dL (0.2-1); TOT PROT 7.7 g/dl (6.4-8.2)
[2023-02-23 16:23] VITALS: RESP 18; TEMP 97.7
[2023-02-23 16:26] VITALS: BP 151/77; PULSE 70
== END 2023-02-23 13:30 | disposition home or self-care (01) ==
LOC: JONCCHEMO 11:31
PROVIDERS: ATTEND Internal Medicine Hematology & Oncology
PROC: 3E033GC Introduction of Other Therapeutic Substance into Peripheral Vein, Percutaneous Approach (ICD-10-PCS; principal; 2023-02-23)
PROC: 3E013GC Introduction of Other Therapeutic Substance into Subcutaneous Tissue, Percutaneous Approach (ICD-10-PCS; 2023-02-23)
DX: I12.0 Hypertensive chronic kidney disease with stage 5 chronic kidney disease or end stage renal disease (principal); D63.8 Anemia in other chronic diseases classified elsewhere; C64.2 Malignant neoplasm of left kidney, except renal pelvis
CPT/HCPCS: 36415; 80048; 80076; 83615; 83735; 84550; 85025; 96365; 96372; J1756; Q5106

== ENCOUNTER 2023-03-30 13:42 | Day surgery (SDC) | payer OTHER ==
[~2023-03-30 13:42] MED LIST changes: +IRON SUCROSE COMPLEX 200 MG in SODIUM CHLORIDE 100 ML IVPB ONE; -IRON SUCROSE INJECTION 200 MG in SODIUM CHLORIDE 100 ML IVPB ONE
[2023-03-30 14:50] LABS: BASO % 0.5 % (0-2.0); EOS % 1.7 % (0-4.5); HEMATOCRIT 28.8 % (32.4-45.2); HEMOGLOBIN 9.3 GM/dL (10.7-15.3); LYMPH % 15.2 % (8-40); MCH 30.3 pg (25.7-33.7); MCHC 32.5 g/dl (32.0-36.0); MEAN CELL VOLUME 93.2 fl (80-96); MEAN PLT VOLUME 8.9 fl (7.5-11.1); NEUT % 73.6 % (42.8-82.8); PLATELET COUNT 155 10^3/uL (134-434); RBC 3.09 M/mm3 (3.60-5.2); RDW 14.2 % (11.6-15.6); WHITE BLOOD COUNT 4.4 K/mm3 (4.0-10.0)
[2023-03-30 15:01] LABS: POTASSIUM 4.8 mmol/L (3.5-5.1)
[2023-03-30 15:03] LABS: CALCIUM 9.9 mg/dL (8.5-10.1)
[2023-03-30 15:04] LABS: ALBUMIN 4.2 g/dl (3.4-5.0); BLOOD UREA NITROGEN 73.6 mg/dL (7-18); MAGNESIUM 1.9 mg/dL (1.8-2.4)
[2023-03-30 15:06] LABS: BILIRUBIN,DIRECT 0.2 mg/dL (0.0-0.2); URIC ACID 6.4 mg/dL (2.6-7.2)
[2023-03-30 15:07] LABS: CREATININE 3.1 mg/dL (0.55-1.3)
[2023-03-30 15:08] LABS: BILIRUBIN,TOTAL 0.4 mg/dL (0.2-1); TOT PROT 7.1 g/dl (6.4-8.2)
[2023-03-30 17:46] VITALS: PULSE 64; TEMP 97.5
[2023-03-30 17:47] VITALS: BP 124/61; RESP 18
== END 2023-03-30 14:55 | disposition home or self-care (01) ==
LOC: JONCCHEMO 13:42 → J7W 13:45 → JONCCHEMO 14:55
PROVIDERS: ATTEND Internal Medicine Hematology & Oncology
PROC: 3E033GC Introduction of Other Therapeutic Substance into Peripheral Vein, Percutaneous Approach (ICD-10-PCS; principal; 2023-03-30)
PROC: 3E013GC Introduction of Other Therapeutic Substance into Subcutaneous Tissue, Percutaneous Approach (ICD-10-PCS; 2023-03-30)
DX: D50.9 Iron deficiency anemia, unspecified (principal)
CPT/HCPCS: 36415; 80048; 80076; 83615; 83735; 84550; 85025; 96365; 96372; Q5106

== ENCOUNTER 2023-04-13 12:55 | Day surgery (SDC) | payer OTHER ==
[~2023-04-13 12:55] MED LIST changes: -IRON SUCROSE COMPLEX 200 MG in SODIUM CHLORIDE 100 ML IVPB ONE; +IRON SUCROSE INJECTION 200 MG in SODIUM CHLORIDE 100 ML IVPB ONE
[2023-04-13 18:04] VITALS: BP 151/58; PULSE 64; RESP 20; TEMP 97.9
== END 2023-04-13 15:30 | disposition home or self-care (01) ==
LOC: JONCCHEMO 12:55 → J7W 12:56 → JONCCHEMO 15:30
PROVIDERS: ATTEND Internal Medicine Hematology & Oncology
PROC: 3E033GC Introduction of Other Therapeutic Substance into Peripheral Vein, Percutaneous Approach (ICD-10-PCS; principal; 2023-04-13)
PROC: 3E013GC Introduction of Other Therapeutic Substance into Subcutaneous Tissue, Percutaneous Approach (ICD-10-PCS; 2023-04-13)
DX: D63.8 Anemia in other chronic diseases classified elsewhere (principal); E61.1 Iron deficiency; C64.2 Malignant neoplasm of left kidney, except renal pelvis
CPT/HCPCS: 96365; 96372; J1756; Q5106

== ENCOUNTER 2023-04-20 14:39 | Day surgery (SDC) | payer OTHER ==
[~2023-04-20 14:39] MED LIST changes: -IRON SUCROSE INJECTION 200 MG in SODIUM CHLORIDE 100 ML IVPB ONE
[2023-04-20 15:57] LABS: BASO % 0.4 % (0-2.0); EOS % 2.5 % (0-4.5); HEMATOCRIT 27.4 % (32.4-45.2); LYMPH % 15.2 % (8-40); MCH 30.7 pg (25.7-33.7); MCHC 32.7 g/dl (32.0-36.0); MEAN CELL VOLUME 94.1 fl (80-96); MEAN PLT VOLUME 8.2 fl (7.5-11.1); MONO % 11.6 % (3.8-10.2); NEUT % 70.3 % (42.8-82.8); PLATELET COUNT 212 10^3/uL (134-434); RBC 2.91 M/mm3 (3.60-5.2); RDW 15.2 % (11.6-15.6); WHITE BLOOD COUNT 3.9 K/mm3 (4.0-10.0)
[2023-04-20 16:19] VITALS: BP 147/66; PULSE 62; RESP 18; TEMP 97.9
[2023-04-20 16:22] LABS: CHLORIDE 105 mmol/L (98-107); POTASSIUM 4.9 mmol/L (3.5-5.1); SODIUM 138 mmol/L (136-145)
[2023-04-20 16:24] LABS: ALBUMIN 4.2 g/dl (3.4-5.0); ANION GAP 11 MMOL/L (8-16); BLOOD UREA NITROGEN 69.8 mg/dL (7-18); CO2 23 mmol/L (21-32); GLUCOSE,RANDOM 208 mg/dL (74-106); MAGNESIUM 2.2 mg/dL (1.8-2.4)
[2023-04-20 16:26] LABS: URIC ACID 7.5 mg/dL (2.6-7.2)
[2023-04-20 16:27] LABS: CREATININE 3.6 mg/dL (0.55-1.3); SGOT/AST < 3 U/L (15-37); SGPT/ALT 19 U/L (13-61)
[2023-04-20 16:28] LABS: BILIRUBIN,TOTAL 0.5 mg/dL (0.2-1)
[2023-04-20 16:29] LABS: TOT PROT 7.2 g/dl (6.4-8.2)
[2023-04-20 16:30] LABS: ALK PHOS 143 U/L (45-117)
[2023-04-20 16:32] LABS: LDH 184 U/L (84-246)
== END 2023-04-20 16:45 | disposition home or self-care (01) ==
LOC: JONCCHEMO 14:39 → J7W 14:40 → JONCCHEMO 16:45
PROVIDERS: ATTEND Internal Medicine Hematology & Oncology
PROC: 3E013GC Introduction of Other Therapeutic Substance into Subcutaneous Tissue, Percutaneous Approach (ICD-10-PCS; principal; 2023-04-20)
DX: C64.2 Malignant neoplasm of left kidney, except renal pelvis (principal); D63.8 Anemia in other chronic diseases classified elsewhere; E61.1 Iron deficiency
CPT/HCPCS: 36415; 80053; 83615; 83735; 84550; 85025; 96372; Q5106

== ENCOUNTER 2023-04-27 11:24 | Day surgery (SDC) | payer OTHER ==
[2023-04-27 11:42] LABS: BASO % 0.3 % (0-2.0); EOS % 1.3 % (0-4.5); HEMATOCRIT 28.3 % (32.4-45.2); HEMOGLOBIN 9.4 GM/dL (10.7-15.3); LYMPH % 10.7 % (8-40); MCHC 33.2 g/dl (32.0-36.0); MEAN CELL VOLUME 93.4 fl (80-96); MEAN PLT VOLUME 7.8 fl (7.5-11.1); MONO % 8.5 % (3.8-10.2); NEUT % 79.2 % (42.8-82.8); PLATELET COUNT 161 10^3/uL (134-434); RBC 3.03 M/mm3 (3.60-5.2); RDW 14.9 % (11.6-15.6); WHITE BLOOD COUNT 3.9 K/mm3 (4.0-10.0)
[2023-04-27 11:56] LABS: CALCIUM 9.7 mg/dL (8.5-10.1)
[2023-04-27 11:57] LABS: MAGNESIUM 1.9 mg/dL (1.8-2.4)
[2023-04-27 11:59] LABS: URIC ACID 6.5 mg/dL (2.6-7.2)
[2023-04-27 12:00] LABS: CREATININE 2.6 mg/dL (0.55-1.3)
[2023-04-27 12:01] LABS: BILIRUBIN,TOTAL 0.4 mg/dL (0.2-1); TOT PROT 6.9 g/dl (6.4-8.2)
[2023-04-27 12:36] LABS: BLOOD UREA NITROGEN 39.9 mg/dL (7-18)
== END 2023-04-27 12:03 | disposition home or self-care (01) ==
LOC: JONCCHEMO 11:24
PROVIDERS: ATTEND Internal Medicine Hematology & Oncology
DX: Z53.8 Procedure and treatment not carried out for other reasons (principal)
CPT/HCPCS: 36415; 80053; 83615; 83735; 84550; 85025

== ENCOUNTER 2023-04-27 11:27 | Inpatient (IN) | payer OTHER ==
[2023-04-27] MEDS ORDERED: ONDANSETRON 4 MG/2 ML VIAL IVPUSH ONE (12:28)
[2023-04-27] MEDS ORDERED: ONDANSETRON 4 MG/2 ML VIAL ONE (12:54)
[2023-04-27 12:59] LABS: BASO % 0.5 % (0-2.0); EOS % 1.4 % (0-4.5); HEMATOCRIT 28.7 % (32.4-45.2); HEMOGLOBIN 9.5 GM/dL (10.7-15.3); LYMPH % 9.1 % (8-40); MCHC 33.1 g/dl (32.0-36.0); MEAN CELL VOLUME 93.7 fl (80-96); MONO % 7.2 % (3.8-10.2); NEUT % 81.8 % (42.8-82.8); PLATELET COUNT 159 10^3/uL (134-434); RBC 3.06 M/mm3 (3.60-5.2); RDW 15.1 % (11.6-15.6); WHITE BLOOD COUNT 3.7 K/mm3 (4.0-10.0)
[2023-04-27 13:02] LABS: INR 0.96 (0.83-1.09); PROTHROMBIN TIME (PATIENT) 11.1 SEC (9.7-13.0)
[2023-04-27 13:05] LABS: ACTIVATED PTT 31.3 SECONDS (25.2-36.5)
[2023-04-27 13:09] LABS: POTASSIUM 5.2 mmol/L (3.5-5.1)
[2023-04-27 13:11] LABS: CALCIUM 9.6 mg/dL (8.5-10.1)
[2023-04-27 13:12] LABS: BLOOD UREA NITROGEN 37.6 mg/dL (7-18); MAGNESIUM 1.9 mg/dL (1.8-2.4)
[2023-04-27 13:15] LABS: CREATININE 2.6 mg/dL (0.55-1.3); PHOSPHOROUS 2.5 mg/dL (2.5-4.9)
[2023-04-27 13:16] LABS: BILIRUBIN,TOTAL 0.4 mg/dL (0.2-1); TOT PROT 6.9 g/dl (6.4-8.2)
[2023-04-27 13:20] LABS: N-TERMINAL BNP 1430.5 pg/ml (5-450)
[2023-04-27] MEDS ORDERED: amLODIPine BESYLATE 10 MG TABLET (FP) PO ONE (13:38)
[2023-04-27] MEDS ORDERED: SODIUM CHLORIDE 250 ML IV STA (13:45)
[2023-04-27] MEDS ORDERED: amLODIPine BESYLATE 10 MG TABLET (FP) ONE (13:51)
[2023-04-27 14:57] LABS: EPI CELLS 2 /uL (0-25.1); HYALINE CASTS 0 /uL (0-3.1); PH,URINE 6.5 (5.0-8.0); URINE APPEARANCE CLEAR; URINE BACTERIA 3 /uL (0-1359); URINE BILIRUBIN NEGATIVE (NEGATIVE); URINE COLOR YELLOW; URINE GLUCOSE (UA) NEGATIVE (NEGATIVE); URINE KETONE NEGATIVE (NEGATIVE); URINE LEUK ESTERASE NEGATIVE (NEGATIVE); URINE NITRITE NEGATIVE (NEGATIVE); URINE PROTEIN 2+ (NEGATIVE); URINE RBC 4 /uL (0-23.9); URINE UROBILINOGEN 0.2 mg/dL (0.2-1.0); URINE WBC 1 /uL (0-25.8)
[2023-04-27] MEDS ORDERED: SODIUM ZIRCONIUM CYCLOSILICATE (LOKELMA) 5 GM PACKET PO SCH (17:15)
[2023-04-27 19:54] VITALS: RESP 20; BMI 21.9
[2023-04-27] MEDS ORDERED: ATORVASTATIN CA 40 MG TABLET (FP) PO SCH (22:00)
[2023-04-27] MEDS: FUROSEMIDE 40 MG TABLET (FP) PO SCH (23:11)
[2023-04-28 09:35] LABS: BASO % 0.8 % (0-2.0); EOS % 2.4 % (0-4.5); LYMPH % 9.8 % (8-40); MCH 31.1 pg (25.7-33.7); MCHC 33.2 g/dl (32.0-36.0); MEAN CELL VOLUME 93.8 fl (80-96); MEAN PLT VOLUME 8.5 fl (7.5-11.1); MONO % 9.4 % (3.8-10.2); NEUT % 77.6 % (42.8-82.8); PLATELET COUNT 177 10^3/uL (134-434); RDW 15.1 % (11.6-15.6); WHITE BLOOD COUNT 3.9 K/mm3 (4.0-10.0)
[2023-04-28 09:40] LABS: POTASSIUM 4.6 mmol/L (3.5-5.1)
[2023-04-28 09:42] LABS: CALCIUM 9.9 mg/dL (8.5-10.1)
[2023-04-28 09:43] LABS: BLOOD UREA NITROGEN 36.8 mg/dL (7-18)
[2023-04-28 09:46] VITALS: BP 153/77; PULSE 68; TEMP 98.2
[2023-04-28 09:46] LABS: CREATININE 2.5 mg/dL (0.55-1.3)
[2023-04-28 09:47] LABS: BILIRUBIN,TOTAL 0.5 mg/dL (0.2-1); TOT PROT 6.9 g/dl (6.4-8.2)
[2023-04-28] MEDS: FUROSEMIDE 40 MG TABLET (FP) PO SCH (11:13)
== END 2023-04-28 15:13 | disposition home or self-care (01) | DRG 641 ==
LOC: JER 11:27 → JERBED 13:47 → J5S 18:03
PROVIDERS: ADMIT Internal Medicine; ATTEND Internal Medicine
DX: E87.1 Hypo-osmolality and hyponatremia (principal); C64.9 Malignant neoplasm of unspecified kidney, except renal pelvis; N17.9 Acute kidney failure, unspecified; I12.9 Hypertensive chronic kidney disease with stage 1 through stage 4 chronic kidney disease, or unspecified chronic kidney disease; E11.22 Type 2 diabetes mellitus with diabetic chronic kidney disease; N18.30 Chronic kidney disease, stage 3 unspecified; D63.1 Anemia in chronic kidney disease; E07.9 Disorder of thyroid, unspecified; E78.5 Hyperlipidemia, unspecified
CPT/HCPCS: 36415; 71045-TC-FY; 80053; 81003; 82533; 82570; 82962; 83735; 83880; 83930; 84100; 84156; 84443; 84484; 85025; 85610; 85730; 86850; 86900; 86901; 87086; 93005; 93010; 93306-TC; 99285-25

== ENCOUNTER 2023-05-15 14:33 | Observation (INO) | payer OTHER ==
[2023-05-15 15:23] VITALS: BMI 21.9
[2023-05-15 18:15] LABS: BASO % 0.9 % (0-2.0); EOS % 0.7 % (0-4.5); HEMATOCRIT 24.6 % (32.4-45.2); HEMOGLOBIN 8.5 GM/dL (10.7-15.3); LYMPH % 10.5 % (8-40); MCH 30.9 pg (25.7-33.7); MCHC 34.4 g/dl (32.0-36.0); MEAN CELL VOLUME 89.6 fl (80-96); MEAN PLT VOLUME 7.2 fl (7.5-11.1); MONO % 8.2 % (3.8-10.2); NEUT % 79.7 % (42.8-82.8); PLATELET COUNT 172 10^3/uL (134-434); RBC 2.74 M/mm3 (3.60-5.2); RDW 13.7 % (11.6-15.6); WHITE BLOOD COUNT 3.5 K/mm3 (4.0-10.0)
[2023-05-15 18:21] LABS: INR 0.97 (0.83-1.09); PROTHROMBIN TIME (PATIENT) 11.3 SEC (9.7-13.0)
[2023-05-15 18:34] LABS: ALBUMIN 3.8 g/dl (3.4-5.0); BLOOD UREA NITROGEN 64.1 mg/dL (7-18); CALCIUM 9.6 mg/dL (8.5-10.1)
[2023-05-15 18:37] LABS: CREATININE 2.8 mg/dL (0.55-1.3)
[2023-05-15 18:39] LABS: BILIRUBIN,TOTAL 0.4 mg/dL (0.2-1); TOT PROT 6.6 g/dl (6.4-8.2)
[2023-05-15] MEDS ORDERED: ACETAMINOPHEN 1000 MG/100 ML BAG IVPB ONE (18:49)
[2023-05-15 19:13] LABS: EPI CELLS >36 /uL (0-25.1); HYALINE CASTS 0 /uL (0-3.1); PH,URINE 6.5 (5.0-8.0); URINE APPEARANCE CLEAR; URINE BACTERIA 81 /uL (0-1359); URINE BILIRUBIN NEGATIVE (NEGATIVE); URINE COLOR YELLOW; URINE GLUCOSE (UA) NEGATIVE (NEGATIVE); URINE KETONE NEGATIVE (NEGATIVE); URINE LEUK ESTERASE 1+ (NEGATIVE); URINE NITRITE NEGATIVE (NEGATIVE); URINE PROTEIN 2+ (NEGATIVE); URINE RBC 3 /uL (0-23.9); URINE UROBILINOGEN 0.2 mg/dL (0.2-1.0); URINE WBC 33 /uL (0-25.8)
[2023-05-15] MEDS ORDERED: ACETAMINOPHEN INJECTION 100 ML IVPB ONE (19:29)
[2023-05-15] MEDS ORDERED: CEFTRIAXONE 1,000 MG in DEXTROSE 5%-WATER - 50 ML IVPB ONE (20:17)
[2023-05-15] MEDS ORDERED: CEFTRIAXONE 1 GM/50 ML BAG ONE (20:21)
[2023-05-16] MEDS ORDERED: MELATONIN 5 MG TABLETS ONE (01:40)
[2023-05-16] MEDS: MELATONIN 5 MG TABLETS PO PRN ×2 (01:49→21:49)
[2023-05-16] MEDS ORDERED: SENNOSIDES 8.6MG TABLET (FP) PO PRN (05:25)
[2023-05-16] MEDS: hydrALAZINE HCL 25 MG TABLET (FP) PO SCH ×3 (06:01→21:49)
[2023-05-16 08:44] LABS: BASO % 1.2 % (0-2.0); EOS % 2.6 % (0-4.5); HEMATOCRIT 25.3 % (32.4-45.2); HEMOGLOBIN 8.6 GM/dL (10.7-15.3); LYMPH % 17.7 % (8-40); MCH 31.1 pg (25.7-33.7); MCHC 33.9 g/dl (32.0-36.0); MEAN CELL VOLUME 91.7 fl (80-96); MEAN PLT VOLUME 7.8 fl (7.5-11.1); MONO % 15.5 % (3.8-10.2); PLATELET COUNT 182 10^3/uL (134-434); RBC 2.75 M/mm3 (3.60-5.2); RDW 13.6 % (11.6-15.6); WHITE BLOOD COUNT 3.2 K/mm3 (4.0-10.0)
[2023-05-16 08:56] LABS: POTASSIUM 4.9 mmol/L (3.5-5.1)
[2023-05-16 08:58] LABS: ALBUMIN 3.6 g/dl (3.4-5.0); CALCIUM 9.9 mg/dL (8.5-10.1)
[2023-05-16 08:59] LABS: BLOOD UREA NITROGEN 59.9 mg/dL (7-18)
[2023-05-16 09:01] LABS: CREATININE 2.6 mg/dL (0.55-1.3)
[2023-05-16 09:03] LABS: BILIRUBIN,TOTAL 0.4 mg/dL (0.2-1); TOT PROT 6.3 g/dl (6.4-8.2)
[2023-05-16] MEDS: NIFEdipine E.R. 30 MG TABLET PO SCH (09:45)
[2023-05-16] MEDS ORDERED: CEFTRIAXONE 1 GM in DEXTROSE 5%-WATER - 50 ML IVPB SCH (10:00)
[2023-05-16] MEDS: ATORVASTATIN CA 40 MG TABLET (FP) PO SCH (21:49)
[2023-05-17] MEDS: hydrALAZINE HCL 25 MG TABLET (FP) PO SCH ×3 (05:15→21:49)
[2023-05-17 10:07] LABS: HEMATOCRIT 28.2 % (32.4-45.2); HEMOGLOBIN 9.4 GM/dL (10.7-15.3); MCH 30.5 pg (25.7-33.7); MCHC 33.2 g/dl (32.0-36.0); MEAN PLT VOLUME 7.8 fl (7.5-11.1); PLATELET COUNT 250 10^3/uL (134-434); RBC 3.07 M/mm3 (3.60-5.2); RDW 13.6 % (11.6-15.6); WHITE BLOOD COUNT 3.9 K/mm3 (4.0-10.0)
[2023-05-17 10:30] LABS: POTASSIUM 5.1 mmol/L (3.5-5.1)
[2023-05-17 10:36] LABS: BLOOD UREA NITROGEN 58.4 mg/dL (7-18); CALCIUM 9.7 mg/dL (8.5-10.1)
[2023-05-17 10:40] LABS: CREATININE 2.5 mg/dL (0.55-1.3)
[2023-05-17] MEDS: NIFEdipine E.R. 30 MG TABLET PO SCH (10:55)
[2023-05-17] MEDS: SODIUM CHLORIDE 1 GM TABLET PO SCH ×2 (13:33→21:49)
[2023-05-17] MEDS: ATORVASTATIN CA 40 MG TABLET (FP) PO SCH (21:49)
[2023-05-17] MEDS: MIRTAZAPINE 15 MG TABLET (FP) PO SCH (21:49)
[2023-05-18] MEDS: hydrALAZINE HCL 25 MG TABLET (FP) PO SCH ×3 (05:11→21:58)
[2023-05-18] MEDS: NIFEdipine E.R. 30 MG TABLET PO SCH (10:23)
[2023-05-18] MEDS: SODIUM CHLORIDE 1 GM TABLET PO SCH (10:23)
[2023-05-18 11:28] LABS: POTASSIUM 5.4 mmol/L (3.5-5.1)
[2023-05-18 11:31] LABS: ALBUMIN 3.4 g/dl (3.4-5.0); BLOOD UREA NITROGEN 68.2 mg/dL (7-18); CALCIUM 9.5 mg/dL (8.5-10.1)
[2023-05-18 11:34] LABS: CREATININE 2.9 mg/dL (0.55-1.3)
[2023-05-18 11:36] LABS: BILIRUBIN,TOTAL 0.4 mg/dL (0.2-1)
[2023-05-18] MEDS ORDERED: SODIUM ZIRCONIUM CYCLOSILICATE (LOKELMA) 5 GM PACKET PO SCH (14:15)
[2023-05-18 21:44] VITALS: RESP 18
[2023-05-18] MEDS: ATORVASTATIN CA 40 MG TABLET (FP) PO SCH (21:59)
[2023-05-18] MEDS: MIRTAZAPINE 15 MG TABLET (FP) PO SCH (21:59)
[2023-05-19] MEDS: hydrALAZINE HCL 25 MG TABLET (FP) PO SCH ×2 (07:29→14:10)
[2023-05-19 11:02] LABS: POTASSIUM 4.8 mmol/L (3.5-5.1)
[2023-05-19 11:07] LABS: CALCIUM 9.3 mg/dL (8.5-10.1)
[2023-05-19 11:11] LABS: CREATININE 3.2 mg/dL (0.55-1.3)
[2023-05-19] MEDS: NIFEdipine E.R. 30 MG TABLET PO SCH (11:12)
[2023-05-19 14:56] VITALS: BP 136/59; PULSE 83; TEMP 97.9
== END 2023-05-19 15:29 | disposition home or self-care (01) ==
LOC: JER 14:33 → JERBED 21:48 → J8W 05-16 03:24
PROVIDERS: ADMIT Internal Medicine; ATTEND Internal Medicine
PROC: 3E03329 Introduction of Other Anti-infective into Peripheral Vein, Percutaneous Approach (ICD-10-PCS; principal; 2023-05-15)
PROC: 3E033NZ Introduction of Analgesics, Hypnotics, Sedatives into Peripheral Vein, Percutaneous Approach (ICD-10-PCS; 2023-05-15)
DX: E87.1 Hypo-osmolality and hyponatremia (principal); G81.94 Hemiplegia, unspecified affecting left nondominant side; I12.9 Hypertensive chronic kidney disease with stage 1 through stage 4 chronic kidney disease, or unspecified chronic kidney disease; N18.9 Chronic kidney disease, unspecified; N39.0 Urinary tract infection, site not specified; R53.1 Weakness; C64.9 Malignant neoplasm of unspecified kidney, except renal pelvis; D64.89 Other specified anemias; G93.89 Other specified disorders of brain; R26.89 Other abnormalities of gait and mobility; Z99.89 Dependence on other enabling machines and devices; G62.9 Polyneuropathy, unspecified
CPT/HCPCS: 36415; 70450-TC; 70551-TC; 71046-TC-FY; 72170-TC-FY; 73502-TC-LT-FY; 73552-TC-LT-FY; 80048; 80053; 81003; 82550; 82607; 82962; 83036; 83930; 83935; 84300; 84439; 84443; 84484; 85025; 85027; 85610; 85730; 86780; 87086; 93005; 93010; 96365; 96366; 96375; 97116-GP; 97161-GP; 99285-25; G0378

== ENCOUNTER 2023-06-01 13:49 | Day surgery (SDC) | payer OTHER ==
[2023-06-01 14:28] LABS: BASO % 0.6 % (0-2.0); EOS % 1.8 % (0-4.5); HEMATOCRIT 23.1 % (32.4-45.2); HEMOGLOBIN 7.4 GM/dL (10.7-15.3); MCH 30.2 pg (25.7-33.7); MCHC 31.8 g/dl (32.0-36.0); MEAN CELL VOLUME 94.9 fl (80-96); MEAN PLT VOLUME 9.1 fl (7.5-11.1); MONO % 8.1 % (3.8-10.2); NEUT % 72.5 % (42.8-82.8); PLATELET COUNT 143 10^3/uL (134-434); RBC 2.43 M/mm3 (3.60-5.2); RDW 14.4 % (11.6-15.6); WHITE BLOOD COUNT 3.6 K/mm3 (4.0-10.0)
[2023-06-01 14:46] LABS: POTASSIUM 4.4 mmol/L (3.5-5.1)
[2023-06-01 14:48] LABS: CALCIUM 9.2 mg/dL (8.5-10.1)
[2023-06-01 14:49] LABS: ALBUMIN 4.1 g/dl (3.4-5.0); BLOOD UREA NITROGEN 69.8 mg/dL (7-18); MAGNESIUM 2.3 mg/dL (1.8-2.4)
[2023-06-01 14:51] LABS: URIC ACID 7.7 mg/dL (2.6-7.2)
[2023-06-01 14:52] LABS: CREATININE 3.4 mg/dL (0.55-1.3)
[2023-06-01 14:53] LABS: BILIRUBIN,TOTAL 0.4 mg/dL (0.2-1); TOT PROT 7.1 g/dl (6.4-8.2)
[2023-06-01 16:54] VITALS: BP 140/61; PULSE 73; RESP 20; TEMP 98.4
== END 2023-06-01 16:55 | disposition home or self-care (01) ==
LOC: JONCCHEMO 13:49 → J7W 13:52 → JONCCHEMO 16:55
PROVIDERS: ATTEND Internal Medicine Hematology & Oncology
PROC: 3E013GC Introduction of Other Therapeutic Substance into Subcutaneous Tissue, Percutaneous Approach (ICD-10-PCS; principal; 2023-06-01)
DX: N18.9 Chronic kidney disease, unspecified (principal); D63.1 Anemia in chronic kidney disease
CPT/HCPCS: 36415; 80053; 83615; 83735; 84550; 85025; 96372; Q5106

== ENCOUNTER 2023-06-01 17:05 | Observation (INO) | payer OTHER ==
[2023-06-01 20:34] LABS: BASO % 0.6 % (0-2.0); EOS % 2.7 % (0-4.5); HEMATOCRIT 24.2 % (32.4-45.2); HEMOGLOBIN 7.8 GM/dL (10.7-15.3); LYMPH % 19.4 % (8-40); MCH 30.3 pg (25.7-33.7); MCHC 32.3 g/dl (32.0-36.0); MEAN CELL VOLUME 93.6 fl (80-96); MONO % 10.9 % (3.8-10.2); NEUT % 66.4 % (42.8-82.8); PLATELET COUNT 146 10^3/uL (134-434); RBC 2.59 M/mm3 (3.60-5.2); RDW 14.8 % (11.6-15.6); WHITE BLOOD COUNT 3.8 K/mm3 (4.0-10.0)
[2023-06-01 20:45] LABS: POTASSIUM 4.8 mmol/L (3.5-5.1)
[2023-06-01 20:47] LABS: CALCIUM 9.4 mg/dL (8.5-10.1)
[2023-06-01 20:48] LABS: ALBUMIN 4.1 g/dl (3.4-5.0)
[2023-06-01 20:51] LABS: CREATININE 3.3 mg/dL (0.55-1.3)
[2023-06-01 20:52] LABS: BILIRUBIN,TOTAL 0.4 mg/dL (0.2-1)
[2023-06-01 20:53] LABS: TOT PROT 7.1 g/dl (6.4-8.2)
[2023-06-01 21:51] LABS: EPI CELLS 5 /uL (0-25.1); HYALINE CASTS 0 /uL (0-3.1); URINE APPEARANCE CLEAR; URINE BACTERIA 14 /uL (0-1359); URINE BILIRUBIN NEGATIVE (NEGATIVE); URINE COLOR YELLOW; URINE GLUCOSE (UA) NEGATIVE (NEGATIVE); URINE KETONE NEGATIVE (NEGATIVE); URINE LEUK ESTERASE TRACE (NEGATIVE); URINE NITRITE NEGATIVE (NEGATIVE); URINE PROTEIN 2+ (NEGATIVE); URINE RBC 5 /uL (0-23.9); URINE UROBILINOGEN 0.2 mg/dL (0.2-1.0); URINE WBC 9 /uL (0-25.8)
[2023-06-02 01:23] VITALS: BMI 20.6
[2023-06-02 14:49] LABS: BASO % 0.5 % (0-2.0); EOS % 1.3 % (0-4.5); HEMATOCRIT 34.4 % (32.4-45.2); HEMOGLOBIN 11.2 GM/dL (10.7-15.3); LYMPH % 12.1 % (8-40); MCH 29.7 pg (25.7-33.7); MCHC 32.6 g/dl (32.0-36.0); MEAN CELL VOLUME 91.1 fl (80-96); MEAN PLT VOLUME 9.6 fl (7.5-11.1); MONO % 8.5 % (3.8-10.2); NEUT % 77.6 % (42.8-82.8); PLATELET COUNT 145 10^3/uL (134-434); RBC 3.78 M/mm3 (3.60-5.2); RDW 16.4 % (11.6-15.6); WHITE BLOOD COUNT 4.6 K/mm3 (4.0-10.0)
[2023-06-02 15:09] LABS: POTASSIUM 4.5 mmol/L (3.5-5.1)
[2023-06-02 15:10] LABS: CALCIUM 9.1 mg/dL (8.5-10.1)
[2023-06-02 15:11] LABS: BLOOD UREA NITROGEN 58.2 mg/dL (7-18)
[2023-06-02 15:14] LABS: CREATININE 2.8 mg/dL (0.55-1.3)
[2023-06-03] MEDS ORDERED: hydrALAZINE HCL 20 MG/ML VIAL IVPB ONE (06:56)
[2023-06-03] MEDS ORDERED: hydrALAZINE HCL 20 MG/ML VIAL IVPUSH ONE (06:56)
[2023-06-03] MEDS ORDERED: MELATONIN 5 MG TABLETS PO PRN (09:27)
[2023-06-03] MEDS ORDERED: SENNOSIDES 8.6MG TABLET (FP) PO PRN (09:27)
[2023-06-03 09:49] LABS: BASO % 0.6 % (0-2.0); EOS % 2.1 % (0-4.5); HEMOGLOBIN 11.6 GM/dL (10.7-15.3); LYMPH % 17.8 % (8-40); MCH 30.2 pg (25.7-33.7); MCHC 34.2 g/dl (32.0-36.0); MEAN CELL VOLUME 88.1 fl (80-96); MEAN PLT VOLUME 9.2 fl (7.5-11.1); MONO % 8.1 % (3.8-10.2); NEUT % 71.4 % (42.8-82.8); PLATELET COUNT 133 10^3/uL (134-434); RBC 3.86 M/mm3 (3.60-5.2); RDW 16.5 % (11.6-15.6); WHITE BLOOD COUNT 5.1 K/mm3 (4.0-10.0)
[2023-06-03] MEDS ORDERED: SODIUM ZIRCONIUM CYCLOSILICATE (LOKELMA) 5 GM PACKET PO SCH (10:00)
[2023-06-03] MEDS ORDERED: NIFEdipine E.R. 30 MG TABLET PO SCH (10:00)
[2023-06-03] MEDS ORDERED: SODIUM CHLORIDE 1 GM TABLET PO SCH (10:00)
[2023-06-03] MEDS ORDERED: POLYETHYLENE GLYCOL (HEALTHYLAX) 3350 17 GM PACKET PO SCH (10:00)
[2023-06-03 10:12] LABS: POTASSIUM 4.2 mmol/L (3.5-5.1)
[2023-06-03 10:15] LABS: ALBUMIN 3.9 g/dl (3.4-5.0)
[2023-06-03 10:17] LABS: CALCIUM 9.4 mg/dL (8.5-10.1)
[2023-06-03 10:21] LABS: CREATININE 2.6 mg/dL (0.55-1.3)
[2023-06-03 10:22] LABS: BILIRUBIN,TOTAL 0.6 mg/dL (0.2-1)
[2023-06-03 10:23] LABS: TOT PROT 6.8 g/dl (6.4-8.2)
[2023-06-03 10:38] LABS: BLOOD UREA NITROGEN 51.2 mg/dL (7-18)
[2023-06-03] MEDS ORDERED: hydrALAZINE HCL 25 MG TABLET (FP) PO SCH (14:00)
[2023-06-03 14:43] VITALS: BP 183/80; PULSE 81; RESP 18; TEMP 97.9
[2023-06-03] MEDS ORDERED: ATORVASTATIN CA 40 MG TABLET (FP) PO SCH (22:00)
== END 2023-06-03 15:45 | disposition home or self-care (01) ==
LOC: JER 17:05 → JERBED 21:49 → J7W 06-02 01:05
PROVIDERS: ADMIT Internal Medicine; ATTEND Internal Medicine
PROC: 30233N1 Transfusion of Nonautologous Red Blood Cells into Peripheral Vein, Percutaneous Approach (ICD-10-PCS; principal; 2023-06-01)
DX: D63.1 Anemia in chronic kidney disease (principal); I13.10 Hypertensive heart and chronic kidney disease without heart failure, with stage 1 through stage 4 chronic kidney disease, or unspecified chronic kidney disease; C64.9 Malignant neoplasm of unspecified kidney, except renal pelvis; N17.9 Acute kidney failure, unspecified; E78.5 Hyperlipidemia, unspecified; R53.1 Weakness
CPT/HCPCS: 36415; 36430; 71045-TC-FY; 80048; 80053; 81003; 85025; 86850; 86900; 86901; 86922; 93005; 93010; 99285-25; G0378; P9058

== ENCOUNTER 2023-06-09 10:58 | Day surgery (SDC) | payer OTHER ==
[2023-06-09 11:27] LABS: BASO % 0.3 % (0-2.0); EOS % 1.6 % (0-4.5); HEMATOCRIT 31.2 % (32.4-45.2); HEMOGLOBIN 10.5 GM/dL (10.7-15.3); LYMPH % 12.2 % (8-40); MCH 30.5 pg (25.7-33.7); MCHC 33.5 g/dl (32.0-36.0); MEAN PLT VOLUME 8.3 fl (7.5-11.1); MONO % 9.1 % (3.8-10.2); NEUT % 76.8 % (42.8-82.8); PLATELET COUNT 145 10^3/uL (134-434); RBC 3.43 M/mm3 (3.60-5.2); RDW 16.1 % (11.6-15.6); WHITE BLOOD COUNT 3.5 K/mm3 (4.0-10.0)
[2023-06-09 11:37] LABS: POTASSIUM 4.7 mmol/L (3.5-5.1)
[2023-06-09 11:40] LABS: CALCIUM 9.1 mg/dL (8.5-10.1)
[2023-06-09 11:41] LABS: ALBUMIN 3.8 g/dl (3.4-5.0); MAGNESIUM 1.9 mg/dL (1.8-2.4)
[2023-06-09 11:43] LABS: CREATININE 3.4 mg/dL (0.55-1.3)
[2023-06-09 11:45] LABS: BILIRUBIN,TOTAL 0.4 mg/dL (0.2-1); TOT PROT 6.8 g/dl (6.4-8.2)
[2023-06-09 11:46] LABS: BLOOD UREA NITROGEN 77.1 mg/dL (7-18)
[2023-06-09] MEDS ORDERED: EPOETIN ALFA-EPBX 10,000 UNIT/ML VIAL SQ ONE (12:00)
[2023-06-09 15:51] VITALS: BP 144/66; PULSE 72; RESP 18; TEMP 97.7
== END 2023-06-09 12:30 | disposition home or self-care (01) ==
LOC: JONCCHEMO 10:58 → J7W 11:00 → JONCCHEMO 12:30
PROVIDERS: ATTEND Internal Medicine Hematology & Oncology
PROC: 3E013GC Introduction of Other Therapeutic Substance into Subcutaneous Tissue, Percutaneous Approach (ICD-10-PCS; principal; 2023-06-09)
DX: D64.9 Anemia, unspecified (principal)
CPT/HCPCS: 36415; 80053; 83615; 83735; 84550; 85025; 96372; Q5106

== ENCOUNTER 2023-06-15 10:21 | Day surgery (SDC) | payer OTHER ==
[2023-06-15] MEDS ORDERED: EPOETIN ALFA-EPBX 10,000 UNIT/ML VIAL SQ ONE (11:00)
[2023-06-15 11:01] LABS: BASO % 0.4 % (0-2.0); EOS % 1.3 % (0-4.5); HEMOGLOBIN 10.7 GM/dL (10.7-15.3); MCH 30.9 pg (25.7-33.7); MCHC 33.3 g/dl (32.0-36.0); MEAN CELL VOLUME 92.8 fl (80-96); MEAN PLT VOLUME 8.3 fl (7.5-11.1); MONO % 8.5 % (3.8-10.2); NEUT % 78.8 % (42.8-82.8); PLATELET COUNT 159 10^3/uL (134-434); RBC 3.45 M/mm3 (3.60-5.2); RDW 18.3 % (11.6-15.6); WHITE BLOOD COUNT 4.3 K/mm3 (4.0-10.0)
[2023-06-15 11:29] LABS: POTASSIUM 4.9 mmol/L (3.5-5.1)
[2023-06-15 11:32] LABS: ALBUMIN 3.6 g/dl (3.4-5.0); CALCIUM 8.9 mg/dL (8.5-10.1)
[2023-06-15 11:33] LABS: BLOOD UREA NITROGEN 55.9 mg/dL (7-18); MAGNESIUM 1.7 mg/dL (1.8-2.4)
[2023-06-15 11:35] LABS: URIC ACID 7.8 mg/dL (2.6-7.2)
[2023-06-15 11:36] LABS: CREATININE 3.7 mg/dL (0.55-1.3)
[2023-06-15 11:37] LABS: BILIRUBIN,TOTAL 0.4 mg/dL (0.2-1); TOT PROT 6.7 g/dl (6.4-8.2)
[2023-06-15 15:49] VITALS: BP 156/69; PULSE 74; RESP 18; TEMP 98.1
== END 2023-06-15 11:00 | disposition home or self-care (01) ==
LOC: JONCCHEMO 10:21 → J7W 10:23 → JONCCHEMO 11:00
PROVIDERS: ATTEND Internal Medicine Hematology & Oncology
DX: D64.9 Anemia, unspecified (principal)
CPT/HCPCS: 36415; 80053; 82728; 83540; 83615; 83735; 84550; 85025; 96372; Q5106

== ENCOUNTER 2023-06-29 10:22 | Day surgery (SDC) | payer OTHER ==
[2023-06-29 11:22] LABS: BASO % 0.7 % (0-2.0); EOS % 1.7 % (0-4.5); HEMATOCRIT 35.5 % (32.4-45.2); HEMOGLOBIN 11.8 GM/dL (10.7-15.3); LYMPH % 15.2 % (8-40); MCHC 33.3 g/dl (32.0-36.0); MEAN PLT VOLUME 8.8 fl (7.5-11.1); MONO % 8.3 % (3.8-10.2); NEUT % 74.1 % (42.8-82.8); PLATELET COUNT 135 10^3/uL (134-434); RBC 3.81 M/mm3 (3.60-5.2); RDW 17.1 % (11.6-15.6); WHITE BLOOD COUNT 3.8 K/mm3 (4.0-10.0)
[2023-06-29 11:37] LABS: POTASSIUM 5.2 mmol/L (3.5-5.1)
[2023-06-29 11:40] LABS: BLOOD UREA NITROGEN 63.9 mg/dL (7-18); MAGNESIUM 1.8 mg/dL (1.8-2.4)
[2023-06-29 11:43] LABS: CREATININE 3.2 mg/dL (0.55-1.3)
[2023-06-29 11:45] LABS: BILIRUBIN,TOTAL 0.5 mg/dL (0.2-1); TOT PROT 7.3 g/dl (6.4-8.2)
[2023-06-29 12:36] VITALS: BP 195/89; PULSE 62; RESP 20; TEMP 97.5
== END 2023-06-29 11:50 | disposition home or self-care (01) ==
LOC: JONCCHEMO 10:22 → J7W 10:27 → JONCCHEMO 11:50
PROVIDERS: ATTEND Internal Medicine Hematology & Oncology
PROC: 3E013GC Introduction of Other Therapeutic Substance into Subcutaneous Tissue, Percutaneous Approach (ICD-10-PCS; principal; 2023-06-29)
DX: D64.89 Other specified anemias (principal); Z53.8 Procedure and treatment not carried out for other reasons
CPT/HCPCS: 36415; 80053; 83615; 83735; 84550; 85025; 96372

== ENCOUNTER 2023-07-20 13:51 | Day surgery (SDC) | payer OTHER ==
[2023-07-20 14:06] LABS: BASO % 0.5 % (0-2.0); EOS % 1.7 % (0-4.5); HEMATOCRIT 32.6 % (32.4-45.2); HEMOGLOBIN 10.7 GM/dL (10.7-15.3); LYMPH % 16.8 % (8-40); MCH 30.5 pg (25.7-33.7); MCHC 32.7 g/dl (32.0-36.0); MEAN CELL VOLUME 93.2 fl (80-96); MEAN PLT VOLUME 7.8 fl (7.5-11.1); MONO % 6.9 % (3.8-10.2); NEUT % 74.1 % (42.8-82.8); PLATELET COUNT 150 10^3/uL (134-434); RDW 14.9 % (11.6-15.6); WHITE BLOOD COUNT 4.9 K/mm3 (4.0-10.0)
[2023-07-20 14:42] LABS: POTASSIUM 5.2 mmol/L (3.5-5.1)
[2023-07-20 14:44] LABS: ALBUMIN 3.8 g/dl (3.4-5.0); CALCIUM 9.3 mg/dL (8.5-10.1)
[2023-07-20 14:45] LABS: BLOOD UREA NITROGEN 75.6 mg/dL (7-18); MAGNESIUM 2.2 mg/dL (1.8-2.4)
[2023-07-20 14:49] LABS: BILIRUBIN,TOTAL 0.3 mg/dL (0.2-1); TOT PROT 7.1 g/dl (6.4-8.2)
[2023-07-20 14:53] LABS: URIC ACID 6.4 mg/dL (2.6-7.2)
[2023-07-20 18:10] VITALS: BP 164/64; PULSE 62; RESP 20; TEMP 98
== END 2023-07-20 15:30 | disposition home or self-care (01) ==
LOC: JONCCHEMO 13:51 → J7W 13:52 → JONCCHEMO 15:30
PROVIDERS: ATTEND Internal Medicine Hematology & Oncology
PROC: 3E013GC Introduction of Other Therapeutic Substance into Subcutaneous Tissue, Percutaneous Approach (ICD-10-PCS; principal; 2023-07-20)
DX: C64.9 Malignant neoplasm of unspecified kidney, except renal pelvis (principal); D64.9 Anemia, unspecified
CPT/HCPCS: 36415; 80053; 83615; 83735; 84550; 85025; 96372; Q5106

== ENCOUNTER 2023-07-27 14:29 | Day surgery (SDC) | payer OTHER ==
[2023-07-27 15:10] LABS: BASO % 0.6 % (0-2.0); EOS % 1.8 % (0-4.5); HEMATOCRIT 33.4 % (32.4-45.2); HEMOGLOBIN 10.7 GM/dL (10.7-15.3); LYMPH % 13.4 % (8-40); MCH 30.1 pg (25.7-33.7); MCHC 32.1 g/dl (32.0-36.0); MEAN CELL VOLUME 93.7 fl (80-96); MEAN PLT VOLUME 8.1 fl (7.5-11.1); MONO % 8.2 % (3.8-10.2); PLATELET COUNT 193 10^3/uL (134-434); RBC 3.57 M/mm3 (3.60-5.2); RDW 15.4 % (11.6-15.6); WHITE BLOOD COUNT 5.6 K/mm3 (4.0-10.0)
[2023-07-27 16:15] LABS: BLOOD UREA NITROGEN 87.1 mg/dL (7-18); CALCIUM 9.2 mg/dL (8.5-10.1)
[2023-07-27 16:17] LABS: ALBUMIN 3.8 g/dl (3.4-5.0); MAGNESIUM 2.1 mg/dL (1.8-2.4)
[2023-07-27 16:18] LABS: URIC ACID 6.8 mg/dL (2.6-7.2)
[2023-07-27 16:21] LABS: BILIRUBIN,TOTAL 0.4 mg/dL (0.2-1); TOT PROT 7.2 g/dl (6.4-8.2)
[2023-07-27 18:12] VITALS: BP 134/53; PULSE 61; RESP 20; TEMP 97.8
== END 2023-07-27 16:45 | disposition home or self-care (01) ==
LOC: JONCCHEMO 14:29 → J7W 14:31 → JONCCHEMO 16:45
PROVIDERS: ATTEND Internal Medicine Hematology & Oncology
PROC: 3E013GC Introduction of Other Therapeutic Substance into Subcutaneous Tissue, Percutaneous Approach (ICD-10-PCS; principal; 2023-07-27)
DX: D63.1 Anemia in chronic kidney disease (principal)
CPT/HCPCS: 36415; 80053; 82728; 83540; 83550; 83615; 83735; 84439; 84443; 84550; 85025; 96372; Q5106

== ENCOUNTER 2023-08-10 12:50 | Day surgery (SDC) | payer OTHER ==
[~2023-08-10 12:50] MED LIST changes: +IRON SUCROSE INJECTION 200 MG in SODIUM CHLORIDE 100 ML IVPB ONE
[2023-08-10 13:22] LABS: BASO % 0.3 % (0-2.0); EOS % 1.5 % (0-4.5); HEMATOCRIT 32.8 % (32.4-45.2); HEMOGLOBIN 10.4 GM/dL (10.7-15.3); LYMPH % 17.6 % (8-40); MCH 30.6 pg (25.7-33.7); MCHC 31.8 g/dl (32.0-36.0); MEAN CELL VOLUME 96.1 fl (80-96); NEUT % 74.6 % (42.8-82.8); PLATELET COUNT 151 10^3/uL (134-434); RBC 3.41 M/mm3 (3.60-5.2); WHITE BLOOD COUNT 3.7 K/mm3 (4.0-10.0)
[2023-08-10 13:49] LABS: CHLORIDE 112 mmol/L (98-107); SODIUM 138 mmol/L (136-145)
[2023-08-10 13:54] LABS: CALCIUM 9.9 mg/dL (8.5-10.1); GLUCOSE,RANDOM 150 mg/dL (74-106)
[2023-08-10 13:55] LABS: ALBUMIN 3.8 g/dl (3.4-5.0); CO2 21 mmol/L (21-32); MAGNESIUM 2.3 mg/dL (1.8-2.4)
[2023-08-10 13:57] LABS: URIC ACID 6.6 mg/dL (2.6-7.2)
[2023-08-10 13:58] LABS: CREATININE 3.2 mg/dL (0.55-1.3); SGOT/AST 12 U/L (15-37); SGPT/ALT 20 U/L (13-61)
[2023-08-10 13:59] LABS: BILIRUBIN,TOTAL 0.5 mg/dL (0.2-1); LDH 181 U/L (84-246); TOT PROT 6.8 g/dl (6.4-8.2)
[2023-08-10 14:09] LABS: ALK PHOS 135 U/L (45-117); ANION GAP 5 mmol/L (4-13); POTASSIUM 6.4 mmol/L (3.5-5.1)
[2023-08-10] MEDS ORDERED: SODIUM POLYSTYRENE SULFONATE 15 GM/60 ML BOTTLE PO ONE (14:45)
[2023-08-10 15:57] VITALS: TEMP 98
[2023-08-10 16:00] VITALS: BP 133/51; PULSE 66; RESP 20
== END 2023-08-10 15:23 | disposition home or self-care (01) ==
LOC: JONCCHEMO 12:50 → J7W 12:50 → JONCCHEMO 15:10
PROVIDERS: ATTEND Internal Medicine Hematology & Oncology
PROC: 3E033GC Introduction of Other Therapeutic Substance into Peripheral Vein, Percutaneous Approach (ICD-10-PCS; principal; 2023-08-10)
PROC: 3E013GC Introduction of Other Therapeutic Substance into Subcutaneous Tissue, Percutaneous Approach (ICD-10-PCS; 2023-08-10)
DX: D50.9 Iron deficiency anemia, unspecified (principal); C64.2 Malignant neoplasm of left kidney, except renal pelvis
CPT/HCPCS: 36415; 80053; 83615; 83735; 84550; 85025; 96365; 96375; J1756; Q5106

== ENCOUNTER 2023-08-24 12:02 | Day surgery (SDC) | payer OTHER ==
[2023-08-24 13:35] VITALS: BP 156/67; PULSE 60; RESP 18; TEMP 97.4
== END 2023-08-24 12:45 | disposition home or self-care (01) ==
LOC: JONCCHEMO 12:02 → J7W 12:08 → JONCCHEMO 12:45
PROVIDERS: ATTEND Internal Medicine Hematology & Oncology
PROC: 3E013GC Introduction of Other Therapeutic Substance into Subcutaneous Tissue, Percutaneous Approach (ICD-10-PCS; principal; 2023-08-24)
DX: D50.9 Iron deficiency anemia, unspecified (principal); C64.2 Malignant neoplasm of left kidney, except renal pelvis
CPT/HCPCS: 96372; Q5106

== ENCOUNTER 2023-08-31 13:25 | Day surgery (SDC) | payer OTHER ==
[~2023-08-31 13:25] MED LIST changes: -IRON SUCROSE INJECTION 200 MG in SODIUM CHLORIDE 100 ML IVPB ONE
[2023-08-31 14:35] LABS: BASO % 0.1 % (0-2.0); EOS % 2.4 % (0-4.5); HEMOGLOBIN 10.8 GM/dL (10.7-15.3); LYMPH % 16.7 % (8-40); MCH 30.9 pg (25.7-33.7); MCHC 31.8 g/dl (32.0-36.0); MEAN CELL VOLUME 97.2 fl (80-96); MEAN PLT VOLUME 9.3 fl (7.5-11.1); MONO % 7.7 % (3.8-10.2); NEUT % 73.1 % (42.8-82.8); PLATELET COUNT 168 10^3/uL (134-434); RDW 16.3 % (11.6-15.6); WHITE BLOOD COUNT 3.8 K/mm3 (4.0-10.0)
[2023-08-31 14:52] LABS: CALCIUM 9.9 mg/dL (8.5-10.1)
[2023-08-31 14:53] LABS: BLOOD UREA NITROGEN 52.7 mg/dL (7-18)
[2023-08-31 14:55] LABS: URIC ACID 6.6 mg/dL (2.6-7.2)
[2023-08-31 14:57] LABS: BILIRUBIN,TOTAL 0.5 mg/dL (0.2-1)
[2023-08-31 16:27] VITALS: BP 161/66; RESP 18; TEMP 98
[2023-08-31 16:29] VITALS: PULSE 58
== END 2023-08-31 14:00 | disposition home or self-care (01) ==
LOC: JONCCHEMO 13:25 → J7W 13:26 → JONCCHEMO 14:00
PROVIDERS: ATTEND Internal Medicine Hematology & Oncology
PROC: 3E013GC Introduction of Other Therapeutic Substance into Subcutaneous Tissue, Percutaneous Approach (ICD-10-PCS; principal; 2023-08-31)
DX: C64.2 Malignant neoplasm of left kidney, except renal pelvis (principal); D63.0 Anemia in neoplastic disease
CPT/HCPCS: 36415; 80053; 83615; 83735; 84550; 85025; 96372; Q5106

== ENCOUNTER 2023-09-14 10:36 | Day surgery (SDC) | payer OTHER ==
[2023-09-14 11:17] LABS: BASO % 0.4 % (0-2.0); HEMATOCRIT 36.4 % (32.4-45.2); HEMOGLOBIN 11.3 GM/dL (10.7-15.3); LYMPH % 14.4 % (8-40); MCH 31.1 pg (25.7-33.7); MCHC 31.2 g/dl (32.0-36.0); MEAN CELL VOLUME 99.9 fl (80-96); MONO % 6.3 % (3.8-10.2); NEUT % 75.9 % (42.8-82.8); PLATELET COUNT 143 10^3/uL (134-434); RBC 3.64 M/mm3 (3.60-5.2); RDW 15.3 % (11.6-15.6); WHITE BLOOD COUNT 2.9 K/mm3 (4.0-10.0)
[2023-09-14 11:48] LABS: POTASSIUM 4.9 mmol/L (3.5-5.1)
[2023-09-14 11:51] LABS: BLOOD UREA NITROGEN 75.8 mg/dL (7-18); CALCIUM 9.7 mg/dL (8.5-10.1); MAGNESIUM 2.2 mg/dL (1.8-2.4)
[2023-09-14 11:54] LABS: CREATININE 3.2 mg/dL (0.55-1.3); URIC ACID 6.4 mg/dL (2.6-7.2)
[2023-09-14 11:55] LABS: TOT PROT 7.3 g/dl (6.4-8.2)
[2023-09-14 11:56] LABS: BILIRUBIN,TOTAL 0.5 mg/dL (0.2-1)
[2023-09-14 16:13] VITALS: BP 119/56; PULSE 51; RESP 18; TEMP 97.7
== END 2023-09-14 14:00 | disposition home or self-care (01) ==
LOC: JONCCHEMO 10:36 → J7W 10:37 → JONCCHEMO 14:00
PROVIDERS: ATTEND Internal Medicine Hematology & Oncology
PROC: 3E013GC Introduction of Other Therapeutic Substance into Subcutaneous Tissue, Percutaneous Approach (ICD-10-PCS; principal; 2023-09-14)
DX: C64.2 Malignant neoplasm of left kidney, except renal pelvis (principal); D63.0 Anemia in neoplastic disease; Z53.8 Procedure and treatment not carried out for other reasons
CPT/HCPCS: 36415; 80053; 83615; 83735; 84550; 85025; 96372

== ENCOUNTER 2023-09-28 14:03 | Day surgery (SDC) | payer OTHER ==
[2023-09-28 14:49] LABS: BASO % 0.3 % (0-2.0); EOS % 0.9 % (0-4.5); HEMATOCRIT 33.8 % (32.4-45.2); HEMOGLOBIN 10.8 GM/dL (10.7-15.3); LYMPH % 20.3 % (8-40); MCH 31.3 pg (25.7-33.7); MCHC 31.8 g/dl (32.0-36.0); MEAN CELL VOLUME 98.5 fl (80-96); MEAN PLT VOLUME 9.1 fl (7.5-11.1); MONO % 7.1 % (3.8-10.2); NEUT % 71.4 % (42.8-82.8); PLATELET COUNT 147 10^3/uL (134-434); RBC 3.44 M/mm3 (3.60-5.2); RDW 13.6 % (11.6-15.6); WHITE BLOOD COUNT 3.8 K/mm3 (4.0-10.0)
[2023-09-28 15:31] LABS: CALCIUM 9.6 mg/dL (8.5-10.1)
[2023-09-28 15:32] LABS: ALBUMIN 3.9 g/dl (3.4-5.0); BLOOD UREA NITROGEN 89.6 mg/dL (7-18); MAGNESIUM 2.3 mg/dL (1.8-2.4)
[2023-09-28 15:34] LABS: URIC ACID 5.4 mg/dL (2.6-7.2)
[2023-09-28 15:35] LABS: CREATININE 3.6 mg/dL (0.55-1.3)
[2023-09-28 15:36] LABS: BILIRUBIN,TOTAL 0.4 mg/dL (0.2-1)
[2023-09-28 15:37] LABS: TOT PROT 7.2 g/dl (6.4-8.2)
[2023-09-28 17:09] VITALS: BP 137/42; PULSE 63; RESP 18; TEMP 97.3
== END 2023-09-28 16:00 | disposition home or self-care (01) ==
LOC: JONCCHEMO 14:03 → J7W 14:05 → JONCCHEMO 16:00
PROVIDERS: ATTEND Internal Medicine Hematology & Oncology
DX: C64.2 Malignant neoplasm of left kidney, except renal pelvis (principal); D63.0 Anemia in neoplastic disease
CPT/HCPCS: 36415; 80053; 83615; 83735; 84550; 85025; 96372; Q5106

== ENCOUNTER 2023-11-02 13:59 | Day surgery (SDC) | payer OTHER ==
[2023-11-02 14:38] LABS: BASO % 0.5 % (0-2.0); EOS % 2.4 % (0-4.5); HEMATOCRIT 27.7 % (32.4-45.2); HEMOGLOBIN 8.8 GM/dL (10.7-15.3); LYMPH % 18.1 % (8-40); MCH 30.8 pg (25.7-33.7); MCHC 31.8 g/dl (32.0-36.0); MEAN PLT VOLUME 8.8 fl (7.5-11.1); MONO % 6.6 % (3.8-10.2); NEUT % 72.4 % (42.8-82.8); PLATELET COUNT 121 10^3/uL (134-434); RBC 2.86 M/mm3 (3.60-5.2); RDW 13.8 % (11.6-15.6); WHITE BLOOD COUNT 3.7 K/mm3 (4.0-10.0)
[2023-11-02 14:51] LABS: CHLORIDE 114 mmol/L (98-107); SODIUM 138 mmol/L (136-145)
[2023-11-02 14:52] LABS: CALCIUM 9.4 mg/dL (8.5-10.1)
[2023-11-02 14:54] LABS: ALBUMIN 3.8 g/dl (3.4-5.0); BLOOD UREA NITROGEN 85.3 mg/dL (7-18); CO2 21 mmol/L (21-32); GLUCOSE,RANDOM 129 mg/dL (74-106)
[2023-11-02 14:56] LABS: CREATININE 3.4 mg/dL (0.55-1.3); SGOT/AST 14 U/L (15-37); SGPT/ALT 25 U/L (13-61); URIC ACID 5.5 mg/dL (2.6-7.2)
[2023-11-02 14:58] LABS: BILIRUBIN,TOTAL 0.3 mg/dL (0.2-1); LDH 196 U/L (84-246)
[2023-11-02 14:59] LABS: ALK PHOS 146 U/L (45-117)
[2023-11-02 15:11] LABS: ANION GAP 4 mmol/L (4-13); POTASSIUM 6.4 mmol/L (3.5-5.1)
[2023-11-02 18:39] VITALS: BP 153/52; PULSE 59; RESP 18; TEMP 97.8
== END 2023-11-02 15:10 | disposition home or self-care (01) ==
LOC: J7W 13:59 → JONCCHEMO 13:59
PROVIDERS: ATTEND Internal Medicine Hematology & Oncology
PROC: 3E013GC Introduction of Other Therapeutic Substance into Subcutaneous Tissue, Percutaneous Approach (ICD-10-PCS; principal; 2023-11-02)
DX: C64.2 Malignant neoplasm of left kidney, except renal pelvis (principal); D63.0 Anemia in neoplastic disease
CPT/HCPCS: 36415; 80053; 83615; 83735; 84550; 85025; 96372; Q5106

== ENCOUNTER 2023-11-09 13:27 | Day surgery (SDC) | payer OTHER ==
[2023-11-09 14:23] LABS: BASO % 0.5 % (0-2.0); EOS % 1.4 % (0-4.5); HEMATOCRIT 26.1 % (32.4-45.2); HEMOGLOBIN 8.6 GM/dL (10.7-15.3); LYMPH % 15.2 % (8-40); MCH 31.2 pg (25.7-33.7); MCHC 32.9 g/dl (32.0-36.0); MEAN CELL VOLUME 95.1 fl (80-96); MEAN PLT VOLUME 8.1 fl (7.5-11.1); MONO % 8.7 % (3.8-10.2); NEUT % 74.2 % (42.8-82.8); PLATELET COUNT 171 10^3/uL (134-434); RBC 2.75 M/mm3 (3.60-5.2); RDW 13.7 % (11.6-15.6); WHITE BLOOD COUNT 3.7 K/mm3 (4.0-10.0)
[2023-11-09 14:51] LABS: CHLORIDE 107 mmol/L (98-107); SODIUM 141 mmol/L (136-145)
[2023-11-09 14:55] LABS: CO2 25 mmol/L (21-32); MAGNESIUM 1.6 mg/dL (1.8-2.4)
[2023-11-09 14:56] LABS: CALCIUM 9.6 mg/dL (8.5-10.1)
[2023-11-09 14:57] LABS: ALBUMIN 3.8 g/dl (3.4-5.0); URIC ACID 6.6 mg/dL (2.6-7.2)
[2023-11-09 14:58] LABS: CREATININE 2.6 mg/dL (0.55-1.3); GLUCOSE,RANDOM 118 mg/dL (74-106); SGOT/AST 17 U/L (15-37)
[2023-11-09 15:01] LABS: BILIRUBIN,TOTAL 0.6 mg/dL (0.2-1); LDH 207 U/L (84-246); SGPT/ALT 26 U/L (13-61)
[2023-11-09 15:02] LABS: ALK PHOS 137 U/L (45-117)
[2023-11-09] MEDS ORDERED: MAGNESIUM OXIDE 400 MG TABLET (FP) PO ONE (15:03)
[2023-11-09 15:15] LABS: ANION GAP 9 mmol/L (4-13); BLOOD UREA NITROGEN 55.2 mg/dL (7-18); POTASSIUM 2.9 mmol/L (3.5-5.1)
[2023-11-09] MEDS ORDERED: POTASSIUM CHLORIDE TABS 20 MEQ TABLET.ER (FP) PO ONE (15:22)
[2023-11-09 15:46] LABS: EPI CELLS 19 /uL (0-25.1); HYALINE CASTS 0 /uL (0-3.1); PH,URINE 6.5 (5.0-8.0); URINE APPEARANCE CLEAR; URINE BACTERIA 38 /uL (0-1359); URINE BILIRUBIN NEGATIVE (NEGATIVE); URINE COLOR YELLOW; URINE GLUCOSE (UA) NEGATIVE (NEGATIVE); URINE KETONE NEGATIVE (NEGATIVE); URINE LEUK ESTERASE NEGATIVE (NEGATIVE); URINE NITRITE NEGATIVE (NEGATIVE); URINE PROTEIN 2+ (NEGATIVE); URINE RBC 2 /uL (0-23.9); URINE UROBILINOGEN 0.2 mg/dL (0.2-1.0); URINE WBC 3 /uL (0-25.8)
[2023-11-09 18:14] VITALS: BP 152/62; PULSE 73; RESP 18; TEMP 98.4
[2023-11-09] MEDS ORDERED: POTASSIUM CHLORIDE TABS 20 MEQ TABLET.ER (FP) PO SCH (18:30)
== END 2023-11-09 16:00 | disposition home or self-care (01) ==
LOC: JONCCHEMO 13:27 → J7W 13:27 → JONCCHEMO 16:00
PROVIDERS: ATTEND Internal Medicine Hematology & Oncology
PROC: 3E013GC Introduction of Other Therapeutic Substance into Subcutaneous Tissue, Percutaneous Approach (ICD-10-PCS; principal; 2023-11-09)
DX: C64.2 Malignant neoplasm of left kidney, except renal pelvis (principal); D63.0 Anemia in neoplastic disease
CPT/HCPCS: 36415; 80053; 81003; 83615; 83735; 84100; 84550; 85025; 96372; Q5106

== ENCOUNTER 2023-11-15 12:16 | Day surgery (SDC) | payer OTHER ==
[2023-11-15 13:31] LABS: BASO % 0.4 % (0-2.0); EOS % 2.7 % (0-4.5); HEMATOCRIT 27.1 % (32.4-45.2); HEMOGLOBIN 8.8 GM/dL (10.7-15.3); LYMPH % 16.8 % (8-40); MCH 31.7 pg (25.7-33.7); MCHC 32.3 g/dl (32.0-36.0); MEAN CELL VOLUME 98.3 fl (80-96); MEAN PLT VOLUME 8.5 fl (7.5-11.1); MONO % 8.1 % (3.8-10.2); PLATELET COUNT 165 10^3/uL (134-434); RBC 2.76 M/mm3 (3.60-5.2); RDW 14.6 % (11.6-15.6); WHITE BLOOD COUNT 3.6 K/mm3 (4.0-10.0)
[2023-11-15 13:57] LABS: CALCIUM 9.9 mg/dL (8.5-10.1)
[2023-11-15 13:58] LABS: ALBUMIN 3.7 g/dl (3.4-5.0); BLOOD UREA NITROGEN 63.3 mg/dL (7-18); MAGNESIUM 1.8 mg/dL (1.8-2.4)
[2023-11-15 14:00] LABS: CREATININE 2.9 mg/dL (0.55-1.3); URIC ACID 6.7 mg/dL (2.6-7.2)
[2023-11-15] MEDS ORDERED: EPOETIN ALFA-EPBX 10,000 UNIT/ML VIAL SQ ONE (14:00)
[2023-11-15 14:01] LABS: BILIRUBIN,TOTAL 0.5 mg/dL (0.2-1); TOT PROT 6.8 g/dl (6.4-8.2)
[2023-11-15 18:08] VITALS: BP 146/62; PULSE 59; RESP 18; TEMP 97.8
== END 2023-11-15 13:30 | disposition home or self-care (01) ==
LOC: JONCCHEMO 12:16 → J7W 12:18 → JONCCHEMO 13:30
PROVIDERS: ATTEND Internal Medicine Hematology & Oncology
PROC: 3E013GC Introduction of Other Therapeutic Substance into Subcutaneous Tissue, Percutaneous Approach (ICD-10-PCS; principal; 2023-11-15)
DX: C64.2 Malignant neoplasm of left kidney, except renal pelvis (principal); D63.0 Anemia in neoplastic disease
CPT/HCPCS: 36415; 80053; 83615; 83735; 84550; 85025; 96372; Q5106

== ENCOUNTER 2023-11-22 12:10 | Day surgery (SDC) | payer OTHER ==
[2023-11-22 13:12] LABS: BASO % 0.7 % (0-2.0); EOS % 2.4 % (0-4.5); HEMATOCRIT 28.6 % (32.4-45.2); LYMPH % 15.4 % (8-40); MCH 31.9 pg (25.7-33.7); MCHC 31.7 g/dl (32.0-36.0); MEAN CELL VOLUME 100.8 fl (80-96); MEAN PLT VOLUME 8.6 fl (7.5-11.1); MONO % 6.9 % (3.8-10.2); NEUT % 74.6 % (42.8-82.8); PLATELET COUNT 145 10^3/uL (134-434); RBC 2.83 M/mm3 (3.60-5.2); RDW 16.2 % (11.6-15.6); WHITE BLOOD COUNT 3.4 K/mm3 (4.0-10.0)
[2023-11-22 13:35] LABS: POTASSIUM 4.7 mmol/L (3.5-5.1)
[2023-11-22 13:37] LABS: BLOOD UREA NITROGEN 77.2 mg/dL (7-18); CALCIUM 9.6 mg/dL (8.5-10.1)
[2023-11-22 13:38] LABS: ALBUMIN 3.9 g/dl (3.4-5.0); MAGNESIUM 1.8 mg/dL (1.8-2.4)
[2023-11-22 13:41] LABS: CREATININE 3.2 mg/dL (0.55-1.3); URIC ACID 7.8 mg/dL (2.6-7.2)
[2023-11-22 13:42] LABS: BILIRUBIN,TOTAL 0.6 mg/dL (0.2-1); TOT PROT 6.9 g/dl (6.4-8.2)
[2023-11-22] MEDS: EPOETIN ALFA-EPBX 10,000 UNIT/ML VIAL SQ ONE (14:06)
[2023-11-22 14:42] VITALS: BP 139/58; PULSE 63; RESP 18; TEMP 98.2
== END 2023-11-22 14:45 | disposition home or self-care (01) ==
LOC: JONCCHEMO 12:10 → J7W 12:26 → JONCCHEMO 14:45
PROVIDERS: ATTEND Internal Medicine Hematology & Oncology
PROC: 3E013GC Introduction of Other Therapeutic Substance into Subcutaneous Tissue, Percutaneous Approach (ICD-10-PCS; principal; 2023-11-22)
DX: C64.2 Malignant neoplasm of left kidney, except renal pelvis (principal); D63.0 Anemia in neoplastic disease
CPT/HCPCS: 36415; 80053; 83615; 83735; 84550; 85025; 96372; Q5106

== ENCOUNTER 2023-11-30 12:46 | Day surgery (SDC) | payer OTHER ==
[2023-11-30 14:03] LABS: BASO % 0.5 % (0-2.0); EOS % 2.1 % (0-4.5); HEMATOCRIT 32.2 % (32.4-45.2); HEMOGLOBIN 10.1 GM/dL (10.7-15.3); LYMPH % 16.2 % (8-40); MCHC 31.4 g/dl (32.0-36.0); MEAN CELL VOLUME 101.8 fl (80-96); MONO % 8.1 % (3.8-10.2); NEUT % 73.1 % (42.8-82.8); PLATELET COUNT 137 10^3/uL (134-434); RBC 3.17 M/mm3 (3.60-5.2)
[2023-11-30 14:20] LABS: POTASSIUM 5.2 mmol/L (3.5-5.1)
[2023-11-30 14:22] LABS: ALBUMIN 4.1 g/dl (3.4-5.0); BLOOD UREA NITROGEN 82.6 mg/dL (7-18); CALCIUM 9.9 mg/dL (8.5-10.1)
[2023-11-30 14:24] LABS: MAGNESIUM 2.1 mg/dL (1.8-2.4)
[2023-11-30 14:25] LABS: CREATININE 3.5 mg/dL (0.55-1.3); URIC ACID 6.5 mg/dL (2.6-7.2)
[2023-11-30 14:27] LABS: BILIRUBIN,TOTAL 0.5 mg/dL (0.2-1); TOT PROT 7.1 g/dl (6.4-8.2)
[2023-11-30] MEDS: EPOETIN ALFA-EPBX 10,000 UNIT/ML VIAL SQ ONE (14:51)
[2023-11-30] MEDS: SODIUM POLYSTYRENE SULFONATE 15 GM/60 ML BOTTLE PO ONE (15:22)
[2023-11-30 16:53] VITALS: BP 146/42; PULSE 59; RESP 18; TEMP 97.5
== END 2023-11-30 15:30 | disposition home or self-care (01) ==
LOC: JONCCHEMO 12:46 → J7W 12:48 → JONCCHEMO 15:30
PROVIDERS: ATTEND Internal Medicine Hematology & Oncology
PROC: 3E013GC Introduction of Other Therapeutic Substance into Subcutaneous Tissue, Percutaneous Approach (ICD-10-PCS; principal; 2023-11-30)
DX: Z76.89 Persons encountering health services in other specified circumstances (principal); C64.2 Malignant neoplasm of left kidney, except renal pelvis; D63.0 Anemia in neoplastic disease
CPT/HCPCS: 36415; 80053; 83615; 83735; 84550; 85025; 96372; Q5106

== ENCOUNTER 2023-12-07 14:47 | Day surgery (SDC) | payer OTHER ==
[2023-12-07 15:25] LABS: BASO % 0.7 % (0-2.0); EOS % 1.6 % (0-4.5); HEMATOCRIT 33.2 % (32.4-45.2); HEMOGLOBIN 10.9 GM/dL (10.7-15.3); LYMPH % 20.7 % (8-40); MCH 32.4 pg (25.7-33.7); MCHC 32.8 g/dl (32.0-36.0); MEAN CELL VOLUME 98.9 fl (80-96); MEAN PLT VOLUME 8.6 fl (7.5-11.1); MONO % 8.4 % (3.8-10.2); NEUT % 68.6 % (42.8-82.8); PLATELET COUNT 145 10^3/uL (134-434); RBC 3.35 M/mm3 (3.60-5.2); RDW 15.5 % (11.6-15.6); WHITE BLOOD COUNT 2.8 K/mm3 (4.0-10.0)
[2023-12-07 15:47] LABS: POTASSIUM 5.1 mmol/L (3.5-5.1)
[2023-12-07 15:50] LABS: ALBUMIN 4.1 g/dl (3.4-5.0); BLOOD UREA NITROGEN 82.4 mg/dL (7-18); CALCIUM 9.8 mg/dL (8.5-10.1); MAGNESIUM 2.2 mg/dL (1.8-2.4)
[2023-12-07 15:53] LABS: CREATININE 3.4 mg/dL (0.55-1.3); URIC ACID 6.8 mg/dL (2.6-7.2)
[2023-12-07 15:55] LABS: BILIRUBIN,TOTAL 0.5 mg/dL (0.2-1); TOT PROT 7.2 g/dl (6.4-8.2)
[2023-12-07] MEDS: EPOETIN ALFA-EPBX 10,000 UNIT/ML VIAL SQ ONE (15:58)
[2023-12-07 16:15] VITALS: BP 138/58; PULSE 79; RESP 20; TEMP 98.1
== END 2023-12-07 16:10 | disposition home or self-care (01) ==
LOC: JONCCHEMO 14:47
PROVIDERS: ATTEND Internal Medicine Hematology & Oncology
PROC: 3E013GC Introduction of Other Therapeutic Substance into Subcutaneous Tissue, Percutaneous Approach (ICD-10-PCS; principal; 2023-12-07)
DX: C64.2 Malignant neoplasm of left kidney, except renal pelvis (principal); D63.0 Anemia in neoplastic disease
CPT/HCPCS: 36415; 80053; 83615; 83735; 84550; 85025; 96372; Q5106

== ENCOUNTER 2023-12-21 13:50 | Day surgery (SDC) | payer OTHER ==
[2023-12-21 14:19] LABS: BASO % 0.7 % (0-2.0); EOS % 2.4 % (0-4.5); HEMATOCRIT 34.4 % (32.4-45.2); HEMOGLOBIN 10.9 GM/dL (10.7-15.3); LYMPH % 20.9 % (8-40); MCH 31.3 pg (25.7-33.7); MCHC 31.8 g/dl (32.0-36.0); MEAN CELL VOLUME 98.4 fl (80-96); MEAN PLT VOLUME 8.4 fl (7.5-11.1); MONO % 9.7 % (3.8-10.2); NEUT % 66.3 % (42.8-82.8); PLATELET COUNT 119 10^3/uL (134-434); RBC 3.49 M/mm3 (3.60-5.2); RDW 13.8 % (11.6-15.6); WHITE BLOOD COUNT 2.7 K/mm3 (4.0-10.0)
[2023-12-21 14:36] VITALS: BP 155/56; PULSE 59; RESP 18; TEMP 97.7
[2023-12-21] MEDS: EPOETIN ALFA-EPBX 10,000 UNIT/ML VIAL SQ ONE (14:40)
[2023-12-21 14:51] LABS: POTASSIUM 5.6 mmol/L (3.5-5.1)
[2023-12-21 14:53] LABS: ALBUMIN 3.8 g/dl (3.4-5.0); CALCIUM 9.4 mg/dL (8.5-10.1); MAGNESIUM 2.1 mg/dL (1.8-2.4)
[2023-12-21 14:56] LABS: CREATININE 3.4 mg/dL (0.55-1.3); URIC ACID 6.4 mg/dL (2.6-7.2)
[2023-12-21 14:58] LABS: BILIRUBIN,TOTAL 0.4 mg/dL (0.2-1)
[2023-12-21] MEDS: SODIUM POLYSTYRENE SULFONATE 15 GM/60 ML BOTTLE PO ONE (15:45)
== END 2023-12-21 16:15 | disposition home or self-care (01) ==
LOC: JONCCHEMO 13:50 → J7W 13:50 → JONCCHEMO 16:15
PROVIDERS: ATTEND Internal Medicine Hematology & Oncology
PROC: 3E013GC Introduction of Other Therapeutic Substance into Subcutaneous Tissue, Percutaneous Approach (ICD-10-PCS; principal; 2023-12-21)
DX: C64.2 Malignant neoplasm of left kidney, except renal pelvis (principal); D63.0 Anemia in neoplastic disease
CPT/HCPCS: 36415; 80053; 83615; 83735; 84550; 85025; 96372; Q5106

== ENCOUNTER 2023-12-28 12:38 | Day surgery (SDC) | payer OTHER ==
[2023-12-28 13:24] LABS: BASO % 0.5 % (0-2.0); EOS % 2.6 % (0-4.5); HEMATOCRIT 35.9 % (32.4-45.2); HEMOGLOBIN 11.4 GM/dL (10.7-15.3); MCH 31.2 pg (25.7-33.7); MCHC 31.6 g/dl (32.0-36.0); MEAN CELL VOLUME 98.6 fl (80-96); MEAN PLT VOLUME 9.3 fl (7.5-11.1); MONO % 9.2 % (3.8-10.2); NEUT % 71.7 % (42.8-82.8); PLATELET COUNT 150 10^3/uL (134-434); RBC 3.65 M/mm3 (3.60-5.2); RDW 14.2 % (11.6-15.6)
[2023-12-28 14:18] LABS: POTASSIUM 4.9 mmol/L (3.5-5.1)
[2023-12-28 14:21] LABS: ALBUMIN 3.8 g/dl (3.4-5.0); BLOOD UREA NITROGEN 71.1 mg/dL (7-18); CALCIUM 9.5 mg/dL (8.5-10.1); MAGNESIUM 1.8 mg/dL (1.8-2.4)
[2023-12-28 14:24] LABS: BILIRUBIN,TOTAL 0.5 mg/dL (0.2-1)
[2023-12-28 14:38] VITALS: BP 188/71; PULSE 56; RESP 18; TEMP 97.6
[2023-12-28] MEDS: EPOETIN ALFA-EPBX 10,000 UNIT/ML VIAL SQ ONE (15:12)
[2023-12-28] MEDS: amLODIPine BESYLATE 5 MG TABLET (FP) PO ONE (15:13)
[2023-12-28] MEDS: LOSARTAN POTASSIUM 50 MG TABLET PO ONE (15:13)
== END 2023-12-28 16:00 | disposition home or self-care (01) ==
LOC: JONCCHEMO 12:38 → J7W 12:38 → JONCCHEMO 16:00
PROVIDERS: ATTEND Internal Medicine Hematology & Oncology
DX: Z53.8 Procedure and treatment not carried out for other reasons (principal)
CPT/HCPCS: 36415; 80053; 83615; 83735; 84550; 85025

== ENCOUNTER 2024-01-11 15:07 | Day surgery (SDC) | payer OTHER ==
[2024-01-11 15:30] LABS: BASO % 0.8 % (0-2.0); EOS % 2.7 % (0-4.5); HEMOGLOBIN 11.3 GM/dL (10.7-15.3); LYMPH % 26.7 % (8-40); MCH 30.5 pg (25.7-33.7); MCHC 31.5 g/dl (32.0-36.0); MEAN CELL VOLUME 96.8 fl (80-96); MONO % 6.2 % (3.8-10.2); NEUT % 63.6 % (42.8-82.8); PLATELET COUNT 131 10^3/uL (134-434); RBC 3.72 M/mm3 (3.60-5.2); RDW 13.7 % (11.6-15.6); WHITE BLOOD COUNT 2.8 K/mm3 (4.0-10.0)
[2024-01-11] MEDS: EPOETIN ALFA-EPBX 10,000 UNIT/ML VIAL SQ ONE (15:37)
[2024-01-11 15:39] VITALS: BP 125/68; PULSE 62; RESP 20; TEMP 98
[2024-01-11 17:08] LABS: EPI CELLS 1 /uL (0-25.1); HYALINE CASTS 0 /uL (0-3.1); PH,URINE 5.5 (5.0-8.0); URINE APPEARANCE CLEAR; URINE BACTERIA 0 /uL (0-1359); URINE BILIRUBIN NEGATIVE (NEGATIVE); URINE COLOR YELLOW; URINE GLUCOSE (UA) NEGATIVE (NEGATIVE); URINE KETONE NEGATIVE (NEGATIVE); URINE LEUK ESTERASE NEGATIVE (NEGATIVE); URINE NITRITE NEGATIVE (NEGATIVE); URINE PROTEIN 2+ (NEGATIVE); URINE RBC 5 /uL (0-23.9); URINE UROBILINOGEN 0.2 mg/dL (0.2-1.0); URINE WBC 1 /uL (0-25.8)
[2024-01-11 17:37] LABS: POTASSIUM 5.4 mmol/L (3.5-5.1)
[2024-01-11 17:39] LABS: MAGNESIUM 1.9 mg/dL (1.8-2.4)
[2024-01-11 17:40] LABS: BLOOD UREA NITROGEN 81.5 mg/dL (7-18)
[2024-01-11 17:42] LABS: CREATININE 3.3 mg/dL (0.55-1.3); URIC ACID 5.9 mg/dL (2.6-7.2)
[2024-01-11 17:45] LABS: BILIRUBIN,TOTAL 0.3 mg/dL (0.2-1); TOT PROT 7.1 g/dl (6.4-8.2)
== END 2024-01-11 17:15 | disposition home or self-care (01) ==
LOC: JONCCHEMO 15:07 → J7W 15:09 → JONCCHEMO 17:15
PROVIDERS: ATTEND Internal Medicine Hematology & Oncology
PROC: 3E013GC Introduction of Other Therapeutic Substance into Subcutaneous Tissue, Percutaneous Approach (ICD-10-PCS; principal; 2024-01-11)
DX: C64.2 Malignant neoplasm of left kidney, except renal pelvis (principal); D63.0 Anemia in neoplastic disease
CPT/HCPCS: 36415; 80053; 81003; 82728; 83540; 83550; 83615; 83735; 84550; 85025; 96372; Q5106

== ENCOUNTER 2024-01-18 11:58 | Day surgery (SDC) | payer OTHER ==
[2024-01-18 12:43] LABS: BASO % 0.5 % (0-2.0); EOS % 2.1 % (0-4.5); HEMATOCRIT 35.6 % (32.4-45.2); HEMOGLOBIN 11.3 GM/dL (10.7-15.3); LYMPH % 14.5 % (8-40); MCH 30.8 pg (25.7-33.7); MCHC 31.7 g/dl (32.0-36.0); MEAN CELL VOLUME 97.1 fl (80-96); MEAN PLT VOLUME 8.8 fl (7.5-11.1); MONO % 7.5 % (3.8-10.2); NEUT % 75.4 % (42.8-82.8); PLATELET COUNT 165 10^3/uL (134-434); RBC 3.66 M/mm3 (3.60-5.2); RDW 13.8 % (11.6-15.6); WHITE BLOOD COUNT 4.2 K/mm3 (4.0-10.0)
[2024-01-18 13:00] LABS: POTASSIUM 5.5 mmol/L (3.5-5.1)
[2024-01-18 13:02] LABS: CALCIUM 10.2 mg/dL (8.5-10.1)
[2024-01-18 13:03] LABS: BLOOD UREA NITROGEN 73.3 mg/dL (7-18); MAGNESIUM 1.8 mg/dL (1.8-2.4)
[2024-01-18 13:05] LABS: CREATININE 3.7 mg/dL (0.55-1.3); URIC ACID 6.2 mg/dL (2.6-7.2)
[2024-01-18 13:07] LABS: BILIRUBIN,TOTAL 0.4 mg/dL (0.2-1); TOT PROT 7.1 g/dl (6.4-8.2)
[2024-01-18] MEDS: EPOETIN ALFA-EPBX 10,000 UNIT/ML VIAL SQ ONE (14:21)
[2024-01-18 18:38] VITALS: BP 160/53; PULSE 58; RESP 20; TEMP 97.6
== END 2024-01-18 14:30 | disposition home or self-care (01) ==
LOC: JONCCHEMO 11:58 → J7W 11:59 → JONCCHEMO 14:30
PROVIDERS: ATTEND Internal Medicine Hematology & Oncology
PROC: 3E013GC Introduction of Other Therapeutic Substance into Subcutaneous Tissue, Percutaneous Approach (ICD-10-PCS; principal; 2024-01-18)
DX: C64.2 Malignant neoplasm of left kidney, except renal pelvis (principal); D63.0 Anemia in neoplastic disease
CPT/HCPCS: 36415; 80053; 83615; 83735; 84550; 85025; 96372; Q5106

== ENCOUNTER 2024-02-08 13:05 | Day surgery (SDC) | payer OTHER ==
[2024-02-08 13:55] LABS: BASO % 0.3 % (0-2.0); EOS % 1.8 % (0-4.5); HEMATOCRIT 34.6 % (32.4-45.2); LYMPH % 15.7 % (8-40); MCH 30.8 pg (25.7-33.7); MCHC 31.8 g/dl (32.0-36.0); MEAN CELL VOLUME 96.9 fl (80-96); MEAN PLT VOLUME 9.4 fl (7.5-11.1); MONO % 7.5 % (3.8-10.2); NEUT % 74.7 % (42.8-82.8); PLATELET COUNT 126 10^3/uL (134-434); RBC 3.57 M/mm3 (3.60-5.2); RDW 14.5 % (11.6-15.6); WHITE BLOOD COUNT 3.5 K/mm3 (4.0-10.0)
[2024-02-08 14:24] LABS: CHLORIDE 110 mmol/L (98-107); SODIUM 138 mmol/L (136-145)
[2024-02-08 14:26] LABS: BLOOD UREA NITROGEN 100.7 mg/dL (7-18); CALCIUM 9.8 mg/dL (8.5-10.1); CO2 21 mmol/L (21-32); GLUCOSE,RANDOM 117 mg/dL (74-106); MAGNESIUM 2.1 mg/dL (1.8-2.4)
[2024-02-08 14:27] LABS: ALBUMIN 3.8 g/dl (3.4-5.0)
[2024-02-08 14:29] LABS: SGPT/ALT 24 U/L (13-61); URIC ACID 4.9 mg/dL (2.6-7.2)
[2024-02-08 14:30] LABS: CREATININE 3.8 mg/dL (0.55-1.3); IRON SERUM 195 ug/dL (50-175); LDH 197 U/L (84-246); SGOT/AST 14 U/L (15-37)
[2024-02-08 14:31] LABS: BILIRUBIN,TOTAL 0.4 mg/dL (0.2-1); TOT PROT 7.2 g/dl (6.4-8.2)
[2024-02-08 14:32] LABS: ALK PHOS 195 U/L (45-117)
[2024-02-08 14:37] LABS: ANION GAP 7 mmol/L (4-13); POTASSIUM 6.1 mmol/L (3.5-5.1)
[2024-02-08] MEDS: EPOETIN ALFA-EPBX 10,000 UNIT/ML VIAL SQ ONE (14:56)
[2024-02-08 15:13] VITALS: BP 165/70; PULSE 61; RESP 18; TEMP 97.5
[2024-02-08] MEDS ORDERED: SODIUM POLYSTYRENE SULFONATE 15 GM/60 ML BOTTLE ONE (15:16)
[2024-02-08] MEDS: SODIUM POLYSTYRENE SULFONATE 15 GM/60 ML BOTTLE PO ONE (15:18)
== END 2024-02-08 15:32 | disposition home or self-care (01) ==
LOC: JONCCHEMO 13:05 → J7W 13:09 → JONCCHEMO 15:32
PROVIDERS: ATTEND Internal Medicine Hematology & Oncology
PROC: 3E013GC Introduction of Other Therapeutic Substance into Subcutaneous Tissue, Percutaneous Approach (ICD-10-PCS; principal; 2024-02-08)
DX: C64.2 Malignant neoplasm of left kidney, except renal pelvis (principal); D63.0 Anemia in neoplastic disease
CPT/HCPCS: 36415; 80053; 82728; 83540; 83550; 83615; 83735; 84550; 85025; 96372; Q5106

== ENCOUNTER 2024-02-15 11:42 | Day surgery (SDC) | payer OTHER ==
[2024-02-15 12:03] LABS: BASO % 0.3 % (0-2.0); EOS % 2.3 % (0-4.5); HEMATOCRIT 33.3 % (32.4-45.2); HEMOGLOBIN 10.6 GM/dL (10.7-15.3); MCH 30.3 pg (25.7-33.7); MEAN CELL VOLUME 94.9 fl (80-96); MEAN PLT VOLUME 8.3 fl (7.5-11.1); MONO % 9.6 % (3.8-10.2); NEUT % 73.8 % (42.8-82.8); PLATELET COUNT 185 10^3/uL (134-434); RBC 3.51 M/mm3 (3.60-5.2); RDW 14.4 % (11.6-15.6); WHITE BLOOD COUNT 4.1 K/mm3 (4.0-10.0)
[2024-02-15 12:21] LABS: CHLORIDE 103 mmol/L (98-107); POTASSIUM 4.7 mmol/L (3.5-5.1); SODIUM 130 mmol/L (136-145)
[2024-02-15 12:23] LABS: CALCIUM 9.9 mg/dL (8.5-10.1)
[2024-02-15 12:24] LABS: ANION GAP 3 mmol/L (4-13); CO2 24 mmol/L (21-32); GLUCOSE,RANDOM 135 mg/dL (74-106); MAGNESIUM 1.8 mg/dL (1.8-2.4)
[2024-02-15 12:26] LABS: URIC ACID 5.7 mg/dL (2.6-7.2)
[2024-02-15 12:27] LABS: CREATININE 3.3 mg/dL (0.55-1.3); SGOT/AST 14 U/L (15-37); SGPT/ALT 30 U/L (13-61)
[2024-02-15 12:28] LABS: BILIRUBIN,TOTAL 0.4 mg/dL (0.2-1)
[2024-02-15 12:29] LABS: TOT PROT 6.9 g/dl (6.4-8.2)
[2024-02-15 12:31] LABS: LDH 201 U/L (84-246)
[2024-02-15 12:36] LABS: ALK PHOS 240 U/L (45-117); BLOOD UREA NITROGEN 74.6 mg/dL (7-18)
[2024-02-15] MEDS: EPOETIN ALFA-EPBX 10,000 UNIT/ML VIAL SQ ONE (12:45)
[2024-02-15 17:17] VITALS: BP 171/64; PULSE 60; RESP 20; TEMP 98
== END 2024-02-15 13:00 | disposition home or self-care (01) ==
LOC: JONCCHEMO 11:42 → J7W 11:44 → JONCCHEMO 13:00
PROVIDERS: ATTEND Internal Medicine Hematology & Oncology
PROC: 3E013GC Introduction of Other Therapeutic Substance into Subcutaneous Tissue, Percutaneous Approach (ICD-10-PCS; principal; 2024-02-15)
DX: C64.2 Malignant neoplasm of left kidney, except renal pelvis (principal); D63.0 Anemia in neoplastic disease
CPT/HCPCS: 36415; 80053; 83615; 83735; 84550; 85025; 96372; Q5106

== ENCOUNTER 2024-03-14 12:24 | Day surgery (SDC) | payer OTHER ==
[2024-03-14 13:45] LABS: BASO % 0.6 % (0-2.0); EOS % 2.4 % (0-4.5); HEMATOCRIT 31.7 % (32.4-45.2); HEMOGLOBIN 10.2 GM/dL (10.7-15.3); LYMPH % 24.2 % (8-40); MCH 30.5 pg (25.7-33.7); MCHC 32.1 g/dl (32.0-36.0); MEAN PLT VOLUME 9.8 fl (7.5-11.1); MONO % 6.1 % (3.8-10.2); NEUT % 66.7 % (42.8-82.8); PLATELET COUNT 122 10^3/uL (134-434); RBC 3.34 M/mm3 (3.60-5.2); RDW 14.2 % (11.6-15.6); WHITE BLOOD COUNT 3.2 K/mm3 (4.0-10.0)
[2024-03-14] MEDS: EPOETIN ALFA-EPBX 10,000 UNIT/ML VIAL SQ ONE (13:58)
[2024-03-14 14:04] LABS: POTASSIUM 5.8 mmol/L (3.5-5.1)
[2024-03-14 14:06] VITALS: BP 154/67; PULSE 63; RESP 18; TEMP 97.5
[2024-03-14 14:07] LABS: ALBUMIN 4.2 g/dl (3.4-5.0); BLOOD UREA NITROGEN 81.8 mg/dL (7-18); CALCIUM 10.3 mg/dL (8.5-10.1); MAGNESIUM 1.9 mg/dL (1.8-2.4)
[2024-03-14 14:12] LABS: BILIRUBIN,TOTAL 0.4 mg/dL (0.2-1); TOT PROT 7.3 g/dl (6.4-8.2)
[2024-03-14 14:17] LABS: URIC ACID 5.5 mg/dL (2.6-7.2)
[2024-03-14 14:35] LABS: CREATININE 3.5 mg/dL (0.55-1.3)
[2024-03-14] MEDS: SODIUM POLYSTYRENE SULFONATE 15 GM/60 ML BOTTLE PO ONE (14:35)
== END 2024-03-14 15:15 | disposition home or self-care (01) ==
LOC: JONCCHEMO 12:24 → J7W 12:31 → JONCCHEMO 15:15
PROVIDERS: ATTEND Internal Medicine Hematology & Oncology
PROC: 3E013GC Introduction of Other Therapeutic Substance into Subcutaneous Tissue, Percutaneous Approach (ICD-10-PCS; principal; 2024-03-14)
DX: Z76.89 Persons encountering health services in other specified circumstances (principal); C64.2 Malignant neoplasm of left kidney, except renal pelvis; D63.0 Anemia in neoplastic disease
CPT/HCPCS: 36415; 80053; 83615; 83735; 84550; 85025; 96372; Q5106

== ENCOUNTER 2024-03-28 13:34 | Day surgery (SDC) | payer OTHER ==
[2024-03-28 14:35] LABS: BASO % 0.8 % (0-2.0); EOS % 2.3 % (0-4.5); HEMATOCRIT 28.1 % (32.4-45.2); HEMOGLOBIN 9.1 GM/dL (10.7-15.3); LYMPH % 15.5 % (8-40); MCH 30.3 pg (25.7-33.7); MCHC 32.4 g/dl (32.0-36.0); MEAN CELL VOLUME 93.5 fl (80-96); MEAN PLT VOLUME 8.6 fl (7.5-11.1); MONO % 9.1 % (3.8-10.2); NEUT % 72.3 % (42.8-82.8); PLATELET COUNT 133 10^3/uL (134-434); RBC 3.01 M/mm3 (3.60-5.2); WHITE BLOOD COUNT 3.1 K/mm3 (4.0-10.0)
[2024-03-28 15:04] LABS: CHLORIDE 104 mmol/L (98-107); POTASSIUM 5.6 mmol/L (3.5-5.1); SODIUM 133 mmol/L (136-145)
[2024-03-28] MEDS: EPOETIN ALFA-EPBX 10,000 UNIT/ML VIAL SQ ONE (15:04)
[2024-03-28 15:06] LABS: ANION GAP 7 mmol/L (4-13); BLOOD UREA NITROGEN 90.6 mg/dL (7-18); CALCIUM 9.4 mg/dL (8.5-10.1); CO2 21 mmol/L (21-32); GLUCOSE,RANDOM 110 mg/dL (74-106)
[2024-03-28 15:07] LABS: ALBUMIN 3.9 g/dl (3.4-5.0)
[2024-03-28 15:09] LABS: CREATININE 3.6 mg/dL (0.55-1.3); SGPT/ALT 20 U/L (13-61)
[2024-03-28 15:10] LABS: LDH 194 U/L (84-246); SGOT/AST 10 U/L (15-37)
[2024-03-28 15:11] LABS: BILIRUBIN,TOTAL 0.5 mg/dL (0.2-1); TOT PROT 6.8 g/dl (6.4-8.2)
[2024-03-28 15:12] LABS: ALK PHOS 194 U/L (45-117)
[2024-03-28 15:14] LABS: URIC ACID 6.1 mg/dL (2.6-7.2)
[2024-03-28] MEDS: SODIUM POLYSTYRENE SULFONATE 15 GM/60 ML BOTTLE PO ONE (15:46)
[2024-03-28 16:52] VITALS: BP 136/51; PULSE 57; RESP 16; TEMP 97.7
== END 2024-03-28 16:00 | disposition home or self-care (01) ==
LOC: J7W 13:34 → JONCCHEMO 13:34
PROVIDERS: ATTEND Internal Medicine Hematology & Oncology
PROC: 3E013GC Introduction of Other Therapeutic Substance into Subcutaneous Tissue, Percutaneous Approach (ICD-10-PCS; principal; 2024-03-28)
DX: C64.2 Malignant neoplasm of left kidney, except renal pelvis (principal); D63.0 Anemia in neoplastic disease
CPT/HCPCS: 36415; 80053; 83615; 83735; 84550; 85025; 96372; Q5106

== ENCOUNTER 2024-04-11 13:13 | Day surgery (SDC) | payer OTHER ==
[2024-04-11 13:19] LABS: BASO % 0.6 % (0-2.0); EOS % 2.4 % (0-4.5); HEMOGLOBIN 9.2 GM/dL (10.7-15.3); LYMPH % 15.6 % (8-40); MCH 31.4 pg (25.7-33.7); MCHC 32.9 g/dl (32.0-36.0); MEAN CELL VOLUME 95.3 fl (80-96); MEAN PLT VOLUME 7.3 fl (7.5-11.1); MONO % 9.2 % (3.8-10.2); NEUT % 72.2 % (42.8-82.8); PLATELET COUNT 148 10^3/uL (134-434); RBC 2.94 M/mm3 (3.60-5.2); RDW 15.5 % (11.6-15.6); WHITE BLOOD COUNT 3.3 K/mm3 (4.0-10.0)
[2024-04-11 13:46] LABS: CHLORIDE 105 mmol/L (98-107); POTASSIUM 5.6 mmol/L (3.5-5.1); SODIUM 133 mmol/L (136-145)
[2024-04-11 13:48] LABS: ANION GAP 9 mmol/L (4-13); BLOOD UREA NITROGEN 96.4 mg/dL (7-18); CALCIUM 9.5 mg/dL (8.5-10.1); CO2 19 mmol/L (21-32)
[2024-04-11 13:49] LABS: ALBUMIN 4.1 g/dl (3.4-5.0); GLUCOSE,RANDOM 127 mg/dL (74-106); MAGNESIUM 1.8 mg/dL (1.8-2.4)
[2024-04-11 13:51] LABS: CREATININE 3.5 mg/dL (0.55-1.3); SGPT/ALT 21 U/L (13-61); URIC ACID 6.8 mg/dL (2.6-7.2)
[2024-04-11 13:52] LABS: LDH 193 U/L (84-246); SGOT/AST 12 U/L (15-37)
[2024-04-11 13:53] LABS: BILIRUBIN,TOTAL 0.5 mg/dL (0.2-1); TOT PROT 7.2 g/dl (6.4-8.2)
[2024-04-11 13:54] LABS: ALK PHOS 207 U/L (45-117)
[2024-04-11] MEDS: LIDOCAINE 5% TOPICAL PATCH TP ONE (14:38)
[2024-04-11] MEDS: EPOETIN ALFA-EPBX 10,000 UNIT/ML VIAL SQ ONE (14:38)
[2024-04-11 15:09] VITALS: BP 153/57; PULSE 58; RESP 20; TEMP 97.6
[2024-04-11] MEDS: SODIUM POLYSTYRENE SULFONATE 15 GM/60 ML BOTTLE PO ONE (15:09)
[2024-04-11] MEDS ORDERED: LIDOCAINE PATCH REMOVAL MC SCH (22:00)
== END 2024-04-11 15:40 | disposition home or self-care (01) ==
LOC: J7W 13:13 → JONCCHEMO 13:13
PROVIDERS: ATTEND Internal Medicine Hematology & Oncology
PROC: 3E013GC Introduction of Other Therapeutic Substance into Subcutaneous Tissue, Percutaneous Approach (ICD-10-PCS; principal; 2024-04-11)
DX: C64.2 Malignant neoplasm of left kidney, except renal pelvis (principal); D63.0 Anemia in neoplastic disease
CPT/HCPCS: 36415; 72100-TC-FY; 73502-TC-RT-FY; 73552-TC-RT-FY; 80053; 83615; 83735; 84550; 85025; 96372; Q5106

== ENCOUNTER 2024-05-16 14:24 | Day surgery (SDC) | payer OTHER ==
[2024-05-16 14:44] VITALS: TEMP 98.6
[2024-05-16] MEDS: SODIUM CHLORIDE 0.45% 500 ML IV ONE (15:00)
[2024-05-16] MEDS: ONDANSETRON INJECTION 8 MG in SODIUM CHLORIDE 50 ML IVPB ONE (15:16)
[2024-05-16 15:54] LABS: BASO % 0.5 % (0-2.0); EOS % 1.2 % (0-4.5); HEMATOCRIT 24.5 % (32.4-45.2); HEMOGLOBIN 8.4 GM/dL (10.7-15.3); LYMPH % 16.7 % (8-40); MCH 30.9 pg (25.7-33.7); MCHC 34.2 g/dl (32.0-36.0); MEAN CELL VOLUME 90.4 fl (80-96); MEAN PLT VOLUME 8.1 fl (7.5-11.1); NEUT % 73.6 % (42.8-82.8); PLATELET COUNT 142 10^3/uL (134-434); RBC 2.71 M/mm3 (3.60-5.2); RDW 13.2 % (11.6-15.6); WHITE BLOOD COUNT 2.5 K/mm3 (4.0-10.0)
[2024-05-16] MEDS: EPOETIN ALFA-EPBX 10,000 UNIT/ML VIAL SQ ONE (16:20)
[2024-05-16 16:28] LABS: BLOOD UREA NITROGEN 71.5 mg/dL (7-18); CHLORIDE 94 mmol/L (98-107); CREATININE 4.2 mg/dL (0.55-1.3); GLUCOSE,RANDOM 153 mg/dL (74-106); POTASSIUM 4.8 mmol/L (3.5-5.1); SODIUM 122 mmol/L (136-145)
[2024-05-16 16:29] LABS: ALBUMIN 3.9 g/dl (3.4-5.0); ALK PHOS 182 U/L (45-117); BILIRUBIN,TOTAL 0.5 mg/dL (0.2-1); CALCIUM 8.9 mg/dL (8.5-10.1); SGOT/AST 10 U/L (15-37); SGPT/ALT 20 U/L (13-61); TOT PROT 6.8 g/dl (6.4-8.2)
[2024-05-16 16:56] LABS: ANION GAP 12 mmol/L (4-13); CO2 16 mmol/L (21-32); LDH 183 U/L (84-246); MAGNESIUM 1.5 mg/dL (1.8-2.4); URIC ACID 4.4 mg/dL (2.6-7.2)
[2024-05-16 17:42] VITALS: BP 156/59; PULSE 69; RESP 20
== END 2024-05-16 17:15 | disposition home or self-care (01) ==
LOC: JONCCHEMO 14:24
PROVIDERS: ATTEND Internal Medicine Hematology & Oncology
PROC: 3E033GC Introduction of Other Therapeutic Substance into Peripheral Vein, Percutaneous Approach (ICD-10-PCS; principal; 2024-05-16)
DX: C64.2 Malignant neoplasm of left kidney, except renal pelvis (principal); I12.0 Hypertensive chronic kidney disease with stage 5 chronic kidney disease or end stage renal disease; N18.9 Chronic kidney disease, unspecified; D63.1 Anemia in chronic kidney disease; M81.0 Age-related osteoporosis without current pathological fracture; E61.1 Iron deficiency
CPT/HCPCS: 36415; 80053; 83615; 83735; 84550; 85025; 96374; Q5106

== ENCOUNTER 2024-05-16 19:01 | Inpatient (IN) | payer OTHER ==
[2024-05-16 20:33] LABS: BASO % 0.6 % (0-2.0); EOS % 1.5 % (0-4.5); HEMATOCRIT 24.8 % (32.4-45.2); HEMOGLOBIN 8.4 GM/dL (10.7-15.3); LYMPH % 17.3 % (8-40); MEAN CELL VOLUME 91.4 fl (80-96); MEAN PLT VOLUME 8.1 fl (7.5-11.1); MONO % 9.7 % (3.8-10.2); NEUT % 70.9 % (42.8-82.8); PLATELET COUNT 153 10^3/uL (134-434); RBC 2.71 M/mm3 (3.60-5.2); RDW 13.3 % (11.6-15.6)
[2024-05-16 21:12] LABS: POTASSIUM 4.9 mmol/L (3.5-5.1)
[2024-05-16 21:14] LABS: CALCIUM 9.2 mg/dL (8.5-10.1)
[2024-05-16 21:15] LABS: ALBUMIN 3.7 g/dl (3.4-5.0); BLOOD UREA NITROGEN 71.9 mg/dL (7-18); MAGNESIUM 1.6 mg/dL (1.8-2.4)
[2024-05-16 21:18] LABS: CREATININE 4.5 mg/dL (0.55-1.3); PHOSPHOROUS 3.2 mg/dL (2.5-4.9)
[2024-05-16 21:20] LABS: BILIRUBIN,TOTAL 0.2 mg/dL (0.2-1); TOT PROT 6.3 g/dl (6.4-8.2)
[2024-05-16] MEDS ORDERED: MAGNESIUM SULFATE IN WATER 2 GM/50 ML IVPB IVPB ONE (22:18)
[2024-05-16] MEDS: MAGNESIUM SULF 50% (8.12 MEQ/2 ML-1 GM VIAL) IVPB ONE (23:40)
[2024-05-16] MEDS: SODIUM CHLORIDE 0.9% 500 ML INFUS.BAG IV ONE (23:40)
[2024-05-17] MEDS ORDERED: ACETAMINOPHEN 325 MG TABLET (FP) ONE (02:26)
[2024-05-17] MEDS: ACETAMINOPHEN 325 MG TABLET (FP) PO ONE (02:34)
[2024-05-17 08:53] LABS: BASO % 0.6 % (0-2.0); EOS % 2.4 % (0-4.5); HEMATOCRIT 23.8 % (32.4-45.2); HEMOGLOBIN 8.1 GM/dL (10.7-15.3); LYMPH % 18.1 % (8-40); MCH 31.6 pg (25.7-33.7); MCHC 34.2 g/dl (32.0-36.0); MEAN CELL VOLUME 92.6 fl (80-96); MEAN PLT VOLUME 7.6 fl (7.5-11.1); MONO % 9.4 % (3.8-10.2); NEUT % 69.5 % (42.8-82.8); PLATELET COUNT 133 10^3/uL (134-434); RBC 2.57 M/mm3 (3.60-5.2); RDW 13.1 % (11.6-15.6); WHITE BLOOD COUNT 3.5 K/mm3 (4.0-10.0)
[2024-05-17 09:07] LABS: POTASSIUM 5.1 mmol/L (3.5-5.1)
[2024-05-17 09:09] LABS: CALCIUM 9.1 mg/dL (8.5-10.1)
[2024-05-17 09:10] LABS: BLOOD UREA NITROGEN 75.4 mg/dL (7-18)
[2024-05-17 09:13] LABS: CREATININE 4.2 mg/dL (0.55-1.3)
[2024-05-17] MEDS ORDERED: MELATONIN 5 MG TABLETS PO PRN (15:29)
[2024-05-17] MEDS ORDERED: SENNOSIDES 8.6MG TABLET (FP) PO PRN (15:29)
[2024-05-17 17:04] VITALS: BMI 22.0
[2024-05-17] MEDS ORDERED: ATORVASTATIN CA 20 MG TABLET (FP) ONE (21:32)
[2024-05-17] MEDS: hydrALAZINE HCL 50 MG TABLET (FP) PO SCH (22:05)
[2024-05-17] MEDS: SODIUM CHLORIDE 1 GM TABLET PO SCH (22:06)
[2024-05-17] MEDS: HEPARIN NA (PORCINE) 5,000 UNITS/ML 1ML VIAL SQ SCH (22:06)
[2024-05-17] MEDS: ATORVASTATIN CA 20 MG TABLET (FP) PO SCH (22:19)
[2024-05-17] MEDS: ATORVASTATIN CA 40 MG TABLET (FP) PO SCH (23:11)
[2024-05-18 09:40] LABS: BASO % 0.8 % (0-2.0); EOS % 2.3 % (0-4.5); HEMATOCRIT 25.3 % (32.4-45.2); HEMOGLOBIN 8.5 GM/dL (10.7-15.3); LYMPH % 17.4 % (8-40); MCH 31.1 pg (25.7-33.7); MCHC 33.4 g/dl (32.0-36.0); MEAN CELL VOLUME 92.9 fl (80-96); MEAN PLT VOLUME 8.1 fl (7.5-11.1); MONO % 8.6 % (3.8-10.2); NEUT % 70.9 % (42.8-82.8); PLATELET COUNT 144 10^3/uL (134-434); RBC 2.72 M/mm3 (3.60-5.2); RDW 13.4 % (11.6-15.6); WHITE BLOOD COUNT 5.2 K/mm3 (4.0-10.0)
[2024-05-18] MEDS: NIFEdipine E.R. 30 MG TABLET PO SCH (10:16)
[2024-05-18] MEDS: POLYETHYLENE GLYCOL (HEALTHYLAX) 3350 17 GM PACKET PO SCH (10:17)
[2024-05-18] MEDS: SODIUM ZIRCONIUM CYCLOSILICATE (LOKELMA) 5 GM PACKET PO SCH (10:17)
[2024-05-18 11:20] LABS: ALBUMIN 3.2 g/dl (3.4-5.0); BILIRUBIN,TOTAL 0.3 mg/dL (0.2-1); BLOOD UREA NITROGEN 71.1 mg/dL (7-18); CALCIUM 9.6 mg/dL (8.5-10.1); CREATININE 3.4 mg/dL (0.55-1.3); POTASSIUM 5.2 mmol/L (3.5-5.1); TOT PROT 5.6 g/dl (6.4-8.2)
[2024-05-18] MEDS: AZITHROMYCIN IVPB 250 MG in DEXTROSE 5%-WATER - 250 ML IVPB SCH (13:26)
[2024-05-18] MEDS: METOCLOPRAMIDE HCL INJECTION 10 MG/2 ML VIAL IVPB PRN (15:12)
[2024-05-20 11:09] LABS: POTASSIUM 5.1 mmol/L (3.5-5.1)
[2024-05-20 11:30] LABS: CALCIUM 9.8 mg/dL (8.5-10.1)
[2024-05-20 11:31] LABS: BLOOD UREA NITROGEN 66.4 mg/dL (7-18)
[2024-05-20 11:34] LABS: CREATININE 3.4 mg/dL (0.55-1.3)
[2024-05-20 15:51] VITALS: BP 129/58; PULSE 82; RESP 18; TEMP 98.4
== END 2024-05-20 17:11 | disposition home health service (06) | DRG 641 ==
LOC: JER 19:01 → JERBED 23:46 → J8W 05-17 14:40
PROVIDERS: ADMIT Internal Medicine; ATTEND Internal Medicine
DX: E87.1 Hypo-osmolality and hyponatremia (principal); N18.4 Chronic kidney disease, stage 4 (severe); C64.9 Malignant neoplasm of unspecified kidney, except renal pelvis; E78.5 Hyperlipidemia, unspecified; E03.9 Hypothyroidism, unspecified; E83.42 Hypomagnesemia; I12.9 Hypertensive chronic kidney disease with stage 1 through stage 4 chronic kidney disease, or unspecified chronic kidney disease; E11.22 Type 2 diabetes mellitus with diabetic chronic kidney disease; D64.9 Anemia, unspecified
CPT/HCPCS: 36415; 71045-TC-FY; 80048; 80053; 83735; 84100; 84484; 85025; 87899; 93005; 93010; 94010; 97116-GP; 97161-GP; 99285-25; J1644

== ENCOUNTER 2024-05-23 10:39 | Day surgery (SDC) | payer OTHER ==
[2024-05-23 11:18] LABS: BASO % 0.9 % (0-2.0); EOS % 1.9 % (0-4.5); HEMATOCRIT 23.8 % (32.4-45.2); HEMOGLOBIN 7.9 GM/dL (10.7-15.3); LYMPH % 13.4 % (8-40); MCH 31.9 pg (25.7-33.7); MCHC 33.3 g/dl (32.0-36.0); MEAN CELL VOLUME 95.8 fl (80-96); MEAN PLT VOLUME 7.1 fl (7.5-11.1); MONO % 8.1 % (3.8-10.2); NEUT % 75.7 % (42.8-82.8); PLATELET COUNT 189 10^3/uL (134-434); RBC 2.48 M/mm3 (3.60-5.2); WHITE BLOOD COUNT 4.6 K/mm3 (4.0-10.0)
[2024-05-23 11:42] LABS: CHLORIDE 111 mmol/L (98-107); POTASSIUM 5.1 mmol/L (3.5-5.1); SODIUM 139 mmol/L (136-145)
[2024-05-23 11:45] LABS: ANION GAP 8 mmol/L (4-13); BLOOD UREA NITROGEN 73.9 mg/dL (7-18); CALCIUM 9.7 mg/dL (8.5-10.1); CO2 20 mmol/L (21-32); GLUCOSE,RANDOM 108 mg/dL (74-106)
[2024-05-23 11:47] LABS: ALBUMIN 3.9 g/dl (3.4-5.0); URIC ACID 5.6 mg/dL (2.6-7.2)
[2024-05-23 11:48] LABS: CREATININE 4.1 mg/dL (0.55-1.3); SGOT/AST 20 U/L (15-37); SGPT/ALT 24 U/L (13-61)
[2024-05-23 11:49] LABS: BILIRUBIN,TOTAL 0.6 mg/dL (0.2-1)
[2024-05-23 11:50] LABS: TOT PROT 6.8 g/dl (6.4-8.2)
[2024-05-23 11:51] LABS: ALK PHOS 151 U/L (45-117)
[2024-05-23 11:54] LABS: LDH 221 U/L (84-246)
[2024-05-23] MEDS ORDERED: FUROSEMIDE 40 MG/4 ML INJECTABLE VIAL IVPUSH ONE (12:50)
[2024-05-23] MEDS: EPOETIN ALFA-EPBX 10,000 UNIT/ML VIAL SQ ONE (13:00)
[2024-05-23] MEDS ORDERED: LIDOCAINE 5% TOPICAL PATCH TP ONE (13:04)
[2024-05-23 17:12] VITALS: RESP 20
[2024-05-23] MEDS: LIDOCAINE 5% TOPICAL PATCH TP ONE (18:52)
[2024-05-23] MEDS: FUROSEMIDE 40 MG/4 ML INJECTABLE VIAL IVPUSH ONE (18:55)
[2024-05-23 19:02] VITALS: BP 197/87; PULSE 79
[2024-05-23 19:03] VITALS: TEMP 98.8
[2024-05-24] MEDS ORDERED: LIDOCAINE PATCH REMOVAL MC ONE (06:00)
== END 2024-05-23 19:20 | disposition home or self-care (01) ==
LOC: JONCCHEMO 10:39 → J7W 10:48 → JONCCHEMO 19:20
PROVIDERS: ATTEND Internal Medicine Hematology & Oncology
PROC: 30233N1 Transfusion of Nonautologous Red Blood Cells into Peripheral Vein, Percutaneous Approach (ICD-10-PCS; principal; 2024-05-23)
PROC: 3E013GC Introduction of Other Therapeutic Substance into Subcutaneous Tissue, Percutaneous Approach (ICD-10-PCS; 2024-05-23)
DX: C64.2 Malignant neoplasm of left kidney, except renal pelvis (principal); E61.1 Iron deficiency; D63.1 Anemia in chronic kidney disease; I12.0 Hypertensive chronic kidney disease with stage 5 chronic kidney disease or end stage renal disease; N18.9 Chronic kidney disease, unspecified; M81.0 Age-related osteoporosis without current pathological fracture
CPT/HCPCS: 36415; 36430; 80053; 83615; 83735; 84550; 85025; 86850; 86900; 86901; 86922; 96372; P9058; Q5106

== ENCOUNTER 2024-06-13 16:00 | Day surgery (SDC) | payer OTHER ==
[2024-06-13 15:53] LABS: BASO % 0.5 % (0-2.0); EOS % 1.4 % (0-4.5); HEMATOCRIT 30.8 % (32.4-45.2); HEMOGLOBIN 10.2 GM/dL (10.7-15.3); LYMPH % 18.7 % (8-40); MCH 32.2 pg (25.7-33.7); MCHC 33.1 g/dl (32.0-36.0); MEAN CELL VOLUME 97.4 fl (80-96); MEAN PLT VOLUME 8.5 fl (7.5-11.1); MONO % 9.2 % (3.8-10.2); NEUT % 70.2 % (42.8-82.8); PLATELET COUNT 142 10^3/uL (134-434); RBC 3.16 M/mm3 (3.60-5.2); RDW 15.2 % (11.6-15.6); WHITE BLOOD COUNT 3.9 K/mm3 (4.0-10.0)
[2024-06-13] MEDS: EPOETIN ALFA-EPBX 10,000 UNIT/ML VIAL SQ ONE (16:07)
[2024-06-13 16:22] LABS: POTASSIUM 4.7 mmol/L (3.5-5.1)
[2024-06-13 16:25] LABS: ALBUMIN 4.1 g/dl (3.4-5.0); BLOOD UREA NITROGEN 78.2 mg/dL (7-18)
[2024-06-13 16:27] LABS: URIC ACID 5.5 mg/dL (2.6-7.2)
[2024-06-13 16:29] LABS: CREATININE 3.4 mg/dL (0.55-1.3)
[2024-06-13 16:30] LABS: BILIRUBIN,TOTAL 0.6 mg/dL (0.2-1); TOT PROT 7.1 g/dl (6.4-8.2)
[2024-06-13 17:24] VITALS: BP 187/84; PULSE 75; RESP 18; TEMP 97.9
== END 2024-06-13 17:20 | disposition home or self-care (01) ==
LOC: J7W 16:00 → JONCCHEMO 16:00
PROVIDERS: ATTEND Internal Medicine Hematology & Oncology
PROC: 3E013GC Introduction of Other Therapeutic Substance into Subcutaneous Tissue, Percutaneous Approach (ICD-10-PCS; principal; 2024-06-13)
DX: C64.2 Malignant neoplasm of left kidney, except renal pelvis (principal); D63.1 Anemia in chronic kidney disease; N18.9 Chronic kidney disease, unspecified
CPT/HCPCS: 36415; 80053; 83615; 83735; 84550; 85025; 86850; 86900; 86901; 96372; Q5106

== ENCOUNTER 2024-06-20 13:08 | Day surgery (SDC) | payer OTHER ==
[2024-06-20 13:50] LABS: BASO % 0.3 % (0-2.0); EOS % 1.3 % (0-4.5); HEMATOCRIT 33.8 % (32.4-45.2); LYMPH % 17.5 % (8-40); MCHC 32.5 g/dl (32.0-36.0); MEAN CELL VOLUME 98.7 fl (80-96); MEAN PLT VOLUME 9.2 fl (7.5-11.1); MONO % 5.7 % (3.8-10.2); NEUT % 75.2 % (42.8-82.8); PLATELET COUNT 185 10^3/uL (134-434); RBC 3.43 M/mm3 (3.60-5.2); RDW 15.6 % (11.6-15.6); WHITE BLOOD COUNT 5.4 K/mm3 (4.0-10.0)
[2024-06-20 14:24] LABS: CHLORIDE 107 mmol/L (98-107); POTASSIUM 5.1 mmol/L (3.5-5.1); SODIUM 136 mmol/L (136-145)
[2024-06-20 14:26] LABS: CALCIUM 10.5 mg/dL (8.5-10.1)
[2024-06-20 14:27] LABS: ALBUMIN 4.2 g/dl (3.4-5.0); ANION GAP 10 mmol/L (4-13); BLOOD UREA NITROGEN 70.1 mg/dL (7-18); CO2 19 mmol/L (21-32); GLUCOSE,RANDOM 108 mg/dL (74-106); MAGNESIUM 1.9 mg/dL (1.8-2.4)
[2024-06-20 14:29] LABS: URIC ACID 6.9 mg/dL (2.6-7.2)
[2024-06-20 14:30] LABS: CREATININE 3.3 mg/dL (0.55-1.3); SGOT/AST 16 U/L (15-37); SGPT/ALT 19 U/L (13-61)
[2024-06-20 14:31] LABS: BILIRUBIN,TOTAL 0.5 mg/dL (0.2-1); LDH 252 U/L (84-246); TOT PROT 7.5 g/dl (6.4-8.2)
[2024-06-20 14:54] LABS: ALK PHOS 191 U/L (45-117)
[2024-06-20] MEDS: EPOETIN ALFA-EPBX 10,000 UNIT/ML VIAL SQ ONE (14:56)
[2024-06-20 15:39] LABS: PHOSPHOROUS 3.5 mg/dL (2.5-4.9)
[2024-06-20 17:28] VITALS: BP 206/86; PULSE 75; RESP 18; TEMP 97.6
== END 2024-06-20 15:30 | disposition home or self-care (01) ==
LOC: JONCCHEMO 13:08 → J7W 13:12 → JONCCHEMO 15:00
PROVIDERS: ATTEND Internal Medicine Hematology & Oncology
PROC: 3E013GC Introduction of Other Therapeutic Substance into Subcutaneous Tissue, Percutaneous Approach (ICD-10-PCS; principal; 2024-06-20)
DX: Z76.89 Persons encountering health services in other specified circumstances (principal); C64.2 Malignant neoplasm of left kidney, except renal pelvis
CPT/HCPCS: 36415; 80053; 82306; 83615; 83735; 83970; 84100; 84550; 85025; 96372; Q5106

== ENCOUNTER 2024-07-04 14:20 | Day surgery (SDC) | payer OTHER ==
[2024-07-04 14:30] LABS: BASO % 0.4 % (0-2.0); EOS % 2.1 % (0-4.5); HEMATOCRIT 31.6 % (32.4-45.2); HEMOGLOBIN 9.9 GM/dL (10.7-15.3); LYMPH % 19.4 % (8-40); MCH 31.6 pg (25.7-33.7); MCHC 31.4 g/dl (32.0-36.0); MEAN CELL VOLUME 100.6 fl (80-96); MEAN PLT VOLUME 8.9 fl (7.5-11.1); NEUT % 69.1 % (42.8-82.8); PLATELET COUNT 141 10^3/uL (134-434); RBC 3.14 M/mm3 (3.60-5.2); RDW 15.8 % (11.6-15.6); WHITE BLOOD COUNT 3.1 K/mm3 (4.0-10.0)
[2024-07-04 14:56] LABS: CHLORIDE 106 mmol/L (98-107); SODIUM 134 mmol/L (136-145)
[2024-07-04 14:58] LABS: ANION GAP 7 mmol/L (4-13); BLOOD UREA NITROGEN 86.3 mg/dL (7-18); CALCIUM 9.9 mg/dL (8.5-10.1); CO2 20 mmol/L (21-32); MAGNESIUM 1.8 mg/dL (1.8-2.4)
[2024-07-04 14:59] LABS: ALBUMIN 3.7 g/dl (3.4-5.0); GLUCOSE,RANDOM 130 mg/dL (74-106)
[2024-07-04 15:02] LABS: CREATININE 3.6 mg/dL (0.55-1.3); URIC ACID 6.3 mg/dL (2.6-7.2)
[2024-07-04 15:03] LABS: SGOT/AST 16 U/L (15-37); SGPT/ALT 24 U/L (13-61)
[2024-07-04 15:04] LABS: BILIRUBIN,TOTAL 0.2 mg/dL (0.2-1); TOT PROT 6.6 g/dl (6.4-8.2)
[2024-07-04 15:05] LABS: LDH 192 U/L (84-246)
[2024-07-04 15:06] LABS: ALK PHOS 170 U/L (45-117)
[2024-07-04] MEDS: EPOETIN ALFA-EPBX 10,000 UNIT/ML VIAL SQ ONE (15:14)
[2024-07-04 17:14] VITALS: BP 118/53; PULSE 67; RESP 18; TEMP 97.9
== END 2024-07-04 16:00 | disposition home or self-care (01) ==
LOC: JONCCHEMO 14:20 → J7W 14:30 → JONCCHEMO 16:00
PROVIDERS: ATTEND Internal Medicine Hematology & Oncology
PROC: 3E013GC Introduction of Other Therapeutic Substance into Subcutaneous Tissue, Percutaneous Approach (ICD-10-PCS; principal; 2024-07-04)
DX: Z76.89 Persons encountering health services in other specified circumstances (principal); C64.2 Malignant neoplasm of left kidney, except renal pelvis
CPT/HCPCS: 36415; 80053; 83615; 83735; 84550; 85025; 96372; Q5106

== ENCOUNTER 2024-07-17 10:07 | Day surgery (SDC) | payer OTHER ==
[2024-07-17 10:55] LABS: BASO % 0.6 % (0-2.0); EOS % 1.4 % (0-4.5); HEMATOCRIT 31.5 % (32.4-45.2); HEMOGLOBIN 10.5 GM/dL (10.7-15.3); LYMPH % 12.2 % (8-40); MCH 32.1 pg (25.7-33.7); MCHC 33.2 g/dl (32.0-36.0); MEAN CELL VOLUME 96.6 fl (80-96); MONO % 7.4 % (3.8-10.2); NEUT % 78.4 % (42.8-82.8); PLATELET COUNT 162 10^3/uL (134-434); RBC 3.26 M/mm3 (3.60-5.2); WHITE BLOOD COUNT 4.1 K/mm3 (4.0-10.0)
[2024-07-17 11:51] LABS: CHLORIDE 99 mmol/L (98-107); POTASSIUM 5.3 mmol/L (3.5-5.1); SODIUM 126 mmol/L (136-145)
[2024-07-17 11:53] LABS: ALBUMIN 3.9 g/dl (3.4-5.0); ANION GAP 8 mmol/L (4-13); BLOOD UREA NITROGEN 65.6 mg/dL (7-18); CALCIUM 9.4 mg/dL (8.5-10.1); CO2 19 mmol/L (21-32)
[2024-07-17 11:54] LABS: GLUCOSE,RANDOM 127 mg/dL (74-106)
[2024-07-17 11:56] LABS: CREATININE 3.2 mg/dL (0.55-1.3); SGOT/AST 13 U/L (15-37); SGPT/ALT 28 U/L (13-61); URIC ACID 6.6 mg/dL (2.6-7.2)
[2024-07-17 11:58] LABS: BILIRUBIN,TOTAL 0.3 mg/dL (0.2-1); TOT PROT 6.8 g/dl (6.4-8.2)
[2024-07-17 11:59] LABS: ALK PHOS 161 U/L (45-117)
[2024-07-17] MEDS: EPOETIN ALFA-EPBX 10,000 UNIT/ML VIAL SQ ONE (12:11)
[2024-07-17] MEDS: SODIUM POLYSTYRENE SULFONATE 15 GM/60 ML BOTTLE PO ONE (12:25)
[2024-07-17 14:44] LABS: LDH 203 U/L (84-246)
[2024-07-17 18:06] VITALS: BP 150/54; PULSE 63; RESP 20; TEMP 97.6
== END 2024-07-17 12:30 | disposition home or self-care (01) ==
LOC: JONCNONCHE 10:07 → J7W 10:12 → JONCNONCHE 12:30
PROVIDERS: ATTEND Internal Medicine Hematology & Oncology
PROC: 3E013GC Introduction of Other Therapeutic Substance into Subcutaneous Tissue, Percutaneous Approach (ICD-10-PCS; principal; 2024-07-17)
DX: C64.2 Malignant neoplasm of left kidney, except renal pelvis (principal); D63.1 Anemia in chronic kidney disease; N18.9 Chronic kidney disease, unspecified
CPT/HCPCS: 36415; 80053; 83615; 83735; 84550; 85025; 96372; Q5106

== ENCOUNTER 2024-07-25 10:27 | Day surgery (SDC) | payer OTHER ==
[2024-07-25 11:11] LABS: BASO % 0.6 % (0-2.0); EOS % 1.6 % (0-4.5); HEMATOCRIT 29.5 % (32.4-45.2); LYMPH % 10.7 % (8-40); MCH 32.6 pg (25.7-33.7); MCHC 33.8 g/dl (32.0-36.0); MEAN CELL VOLUME 96.6 fl (80-96); MEAN PLT VOLUME 8.3 fl (7.5-11.1); MONO % 9.9 % (3.8-10.2); NEUT % 77.2 % (42.8-82.8); PLATELET COUNT 163 10^3/uL (134-434); RBC 3.06 M/mm3 (3.60-5.2); RDW 14.6 % (11.6-15.6); WHITE BLOOD COUNT 3.9 K/mm3 (4.0-10.0)
[2024-07-25 11:28] LABS: CHLORIDE 99 mmol/L (98-107); POTASSIUM 4.5 mmol/L (3.5-5.1); SODIUM 127 mmol/L (136-145)
[2024-07-25 11:31] LABS: ALBUMIN 3.6 g/dl (3.4-5.0); ANION GAP 9 mmol/L (4-13); BLOOD UREA NITROGEN 90.5 mg/dL (7-18); CALCIUM 9.3 mg/dL (8.5-10.1); CO2 18 mmol/L (21-32); MAGNESIUM 1.5 mg/dL (1.8-2.4)
[2024-07-25 11:32] LABS: GLUCOSE,RANDOM 141 mg/dL (74-106)
[2024-07-25 11:34] LABS: SGOT/AST 14 U/L (15-37); SGPT/ALT 23 U/L (13-61)
[2024-07-25 11:35] LABS: CREATININE 3.6 mg/dL (0.55-1.3); LDH 185 U/L (84-246)
[2024-07-25 11:36] LABS: BILIRUBIN,TOTAL 0.4 mg/dL (0.2-1); TOT PROT 6.3 g/dl (6.4-8.2)
[2024-07-25 11:38] LABS: URIC ACID 6.6 mg/dL (2.6-7.2)
[2024-07-25 11:55] LABS: ALK PHOS 194 U/L (45-117)
[2024-07-25] MEDS: MAGNESIUM OXIDE 400 MG TABLET (FP) PO ONE (12:24)
[2024-07-25] MEDS: EPOETIN ALFA-EPBX 10,000 UNIT/ML VIAL SQ ONE (12:24)
[2024-07-25 16:24] VITALS: BP 145/59; PULSE 59; RESP 20; TEMP 97.4
== END 2024-07-25 13:00 | disposition home or self-care (01) ==
LOC: JONCCHEMO 10:27 → J7W 10:36 → JONCCHEMO 13:00
PROVIDERS: ATTEND Internal Medicine Hematology & Oncology
PROC: 3E013GC Introduction of Other Therapeutic Substance into Subcutaneous Tissue, Percutaneous Approach (ICD-10-PCS; principal; 2024-07-25)
DX: C64.2 Malignant neoplasm of left kidney, except renal pelvis (principal); D63.1 Anemia in chronic kidney disease
CPT/HCPCS: 36415; 80053; 83615; 83735; 84550; 85025; 96372; Q5106

== ENCOUNTER 2024-08-01 13:29 | Day surgery (SDC) | payer OTHER ==
[2024-08-01 14:37] LABS: BASO % 0.7 % (0-2.0); EOS % 1.5 % (0-4.5); HEMATOCRIT 33.3 % (32.4-45.2); HEMOGLOBIN 10.7 GM/dL (10.7-15.3); LYMPH % 10.3 % (8-40); MCH 31.8 pg (25.7-33.7); MCHC 32.1 g/dl (32.0-36.0); MEAN CELL VOLUME 99.1 fl (80-96); MEAN PLT VOLUME 7.8 fl (7.5-11.1); MONO % 6.4 % (3.8-10.2); NEUT % 81.1 % (42.8-82.8); PLATELET COUNT 185 10^3/uL (134-434); RBC 3.36 M/mm3 (3.60-5.2); RDW 15.1 % (11.6-15.6); WHITE BLOOD COUNT 3.5 K/mm3 (4.0-10.0)
[2024-08-01 15:11] LABS: CHLORIDE 109 mmol/L (98-107); POTASSIUM 4.5 mmol/L (3.5-5.1); SODIUM 137 mmol/L (136-145)
[2024-08-01 15:13] LABS: ALBUMIN 3.9 g/dl (3.4-5.0); ANION GAP 9 mmol/L (4-13); BLOOD UREA NITROGEN 83.3 mg/dL (7-18); CALCIUM 9.9 mg/dL (8.5-10.1); CO2 19 mmol/L (21-32); MAGNESIUM 1.8 mg/dL (1.8-2.4)
[2024-08-01 15:14] LABS: GLUCOSE,RANDOM 133 mg/dL (74-106)
[2024-08-01 15:16] LABS: CREATININE 3.7 mg/dL (0.55-1.3); SGPT/ALT 26 U/L (13-61); URIC ACID 8.5 mg/dL (2.6-7.2)
[2024-08-01 15:17] LABS: LDH 186 U/L (84-246); SGOT/AST 14 U/L (15-37)
[2024-08-01 15:18] LABS: BILIRUBIN,TOTAL 0.4 mg/dL (0.2-1); TOT PROT 6.8 g/dl (6.4-8.2)
[2024-08-01 15:19] LABS: ALK PHOS 178 U/L (45-117)
[2024-08-01] MEDS: EPOETIN ALFA-EPBX 10,000 UNIT/ML VIAL SQ ONE (15:39)
[2024-08-01 16:09] VITALS: BP 128/55; PULSE 62; RESP 18; TEMP 97.3
== END 2024-08-01 14:00 | disposition home or self-care (01) ==
LOC: JONCCHEMO 13:29 → J7W 13:34 → JONCCHEMO 14:00
PROVIDERS: ATTEND Internal Medicine Hematology & Oncology
PROC: 3E013GC Introduction of Other Therapeutic Substance into Subcutaneous Tissue, Percutaneous Approach (ICD-10-PCS; principal; 2024-08-01)
DX: C64.2 Malignant neoplasm of left kidney, except renal pelvis (principal); D63.1 Anemia in chronic kidney disease
CPT/HCPCS: 36415; 80053; 83615; 83735; 84550; 85025; 96372; Q5106

== ENCOUNTER 2024-08-08 13:24 | Day surgery (SDC) | payer OTHER ==
[2024-08-08 14:16] LABS: BASO % 1.1 % (0-2.0); EOS % 2.1 % (0-4.5); HEMATOCRIT 35.5 % (32.4-45.2); HEMOGLOBIN 11.5 GM/dL (10.7-15.3); LYMPH % 13.2 % (8-40); MCHC 32.4 g/dl (32.0-36.0); MEAN CELL VOLUME 98.7 fl (80-96); MEAN PLT VOLUME 8.7 fl (7.5-11.1); MONO % 7.9 % (3.8-10.2); NEUT % 75.7 % (42.8-82.8); PLATELET COUNT 199 10^3/uL (134-434); RDW 15.9 % (11.6-15.6); WHITE BLOOD COUNT 3.5 K/mm3 (4.0-10.0)
[2024-08-08 14:25] LABS: CHLORIDE 110 mmol/L (98-107); POTASSIUM 4.3 mmol/L (3.5-5.1); SODIUM 137 mmol/L (136-145)
[2024-08-08 14:27] LABS: ANION GAP 8 mmol/L (4-13); BLOOD UREA NITROGEN 76.8 mg/dL (7-18); CALCIUM 9.6 mg/dL (8.5-10.1); CO2 19 mmol/L (21-32); MAGNESIUM 1.7 mg/dL (1.8-2.4)
[2024-08-08 14:28] LABS: GLUCOSE,RANDOM 130 mg/dL (74-106)
[2024-08-08 14:30] LABS: CREATININE 3.5 mg/dL (0.55-1.3); SGOT/AST 13 U/L (15-37); SGPT/ALT 24 U/L (13-61); URIC ACID 7.5 mg/dL (2.6-7.2)
[2024-08-08 14:32] LABS: BILIRUBIN,TOTAL 0.6 mg/dL (0.2-1); LDH 188 U/L (84-246)
[2024-08-08 14:43] LABS: ALK PHOS 148 U/L (45-117)
[2024-08-08] MEDS: MAGNESIUM OXIDE 400 MG TABLET (FP) PO ONE (15:17)
[2024-08-08] MEDS: EPOETIN ALFA-EPBX 10,000 UNIT/ML VIAL SQ ONE (15:20)
== END 2024-08-08 17:07 | disposition home or self-care (01) ==
LOC: JONCCHEMO 13:24 → J7W 13:25 → JONCCHEMO 17:07
PROVIDERS: ATTEND Internal Medicine Hematology & Oncology
DX: Z53.8 Procedure and treatment not carried out for other reasons (principal)
CPT/HCPCS: 36415; 80053; 83615; 83735; 84550; 85025; 93970-TC

== ENCOUNTER 2024-08-22 10:27 | Day surgery (SDC) | payer OTHER ==
[2024-08-22 10:56] LABS: BASO % 0.8 % (0-2.0); EOS % 2.6 % (0-4.5); HEMOGLOBIN 11.2 GM/dL (10.7-15.3); LYMPH % 21.7 % (8-40); MCH 31.5 pg (25.7-33.7); MCHC 32.1 g/dl (32.0-36.0); MEAN CELL VOLUME 98.1 fl (80-96); MEAN PLT VOLUME 8.4 fl (7.5-11.1); MONO % 8.5 % (3.8-10.2); NEUT % 66.4 % (42.8-82.8); PLATELET COUNT 116 10^3/uL (134-434); RBC 3.57 M/mm3 (3.60-5.2); RDW 14.7 % (11.6-15.6); WHITE BLOOD COUNT 2.5 K/mm3 (4.0-10.0)
[2024-08-22 11:19] LABS: CHLORIDE 114 mmol/L (98-107); POTASSIUM 4.8 mmol/L (3.5-5.1); SODIUM 140 mmol/L (136-145)
[2024-08-22 11:20] LABS: ALBUMIN 3.8 g/dl (3.4-5.0); ANION GAP 5 mmol/L (4-13); CALCIUM 9.8 mg/dL (8.5-10.1); CO2 20 mmol/L (21-32)
[2024-08-22 11:21] LABS: GLUCOSE,RANDOM 139 mg/dL (74-106); MAGNESIUM 1.6 mg/dL (1.8-2.4)
[2024-08-22 11:23] LABS: CREATININE 3.5 mg/dL (0.55-1.3); SGOT/AST 17 U/L (15-37); SGPT/ALT 23 U/L (13-61); URIC ACID 7.1 mg/dL (2.6-7.2)
[2024-08-22 11:25] LABS: BILIRUBIN,TOTAL 0.4 mg/dL (0.2-1); LDH 200 U/L (84-246); TOT PROT 6.8 g/dl (6.4-8.2)
[2024-08-22 11:27] LABS: ALK PHOS 144 U/L (45-117)
[2024-08-22] MEDS: EPOETIN ALFA-EPBX 10,000 UNIT/ML VIAL SQ ONE (11:39)
[2024-08-22 11:40] VITALS: BP 161/66; PULSE 62; RESP 18; TEMP 98
[2024-08-22] MEDS: MAGNESIUM OXIDE 400 MG TABLET (FP) PO ONE (11:51)
== END 2024-08-22 12:30 | disposition home or self-care (01) ==
LOC: JONCCHEMO 10:27 → J7W 10:28 → JONCCHEMO 12:30
PROVIDERS: ATTEND Internal Medicine Hematology & Oncology
PROC: 3E013GC Introduction of Other Therapeutic Substance into Subcutaneous Tissue, Percutaneous Approach (ICD-10-PCS; principal; 2024-08-22)
DX: C64.2 Malignant neoplasm of left kidney, except renal pelvis (principal); D63.1 Anemia in chronic kidney disease; Z76.89 Persons encountering health services in other specified circumstances
CPT/HCPCS: 36415; 80053; 83615; 83735; 84550; 85025; 96372; Q5106

== ENCOUNTER 2024-09-11 10:19 | Day surgery (SDC) | payer OTHER ==
[2024-09-11 11:29] LABS: BASO % 0.4 % (0-2.0); EOS % 1.7 % (0-4.5); HEMATOCRIT 33.1 % (32.4-45.2); HEMOGLOBIN 10.7 GM/dL (10.7-15.3); LYMPH % 13.3 % (8-40); MCH 31.1 pg (25.7-33.7); MCHC 32.5 g/dl (32.0-36.0); MEAN CELL VOLUME 95.6 fl (80-96); MEAN PLT VOLUME 9.7 fl (7.5-11.1); MONO % 6.5 % (3.8-10.2); NEUT % 78.1 % (42.8-82.8); PLATELET COUNT 102 10^3/uL (134-434); RBC 3.46 M/mm3 (3.60-5.2); RDW 14.1 % (11.6-15.6); WHITE BLOOD COUNT 3.9 K/mm3 (4.0-10.0)
[2024-09-11 12:23] LABS: CHLORIDE 108 mmol/L (98-107); POTASSIUM 4.6 mmol/L (3.5-5.1); SODIUM 135 mmol/L (136-145)
[2024-09-11 12:26] LABS: ANION GAP 11 mmol/L (4-13); CALCIUM 9.6 mg/dL (8.5-10.1); CO2 16 mmol/L (21-32)
[2024-09-11 12:27] LABS: ALBUMIN 3.9 g/dl (3.4-5.0); GLUCOSE,RANDOM 154 mg/dL (74-106); MAGNESIUM 1.9 mg/dL (1.8-2.4)
[2024-09-11 12:28] LABS: BLOOD UREA NITROGEN 112.2 mg/dL (7-18)
[2024-09-11 12:29] LABS: SGOT/AST 15 U/L (15-37); SGPT/ALT 21 U/L (13-61)
[2024-09-11 12:31] LABS: BILIRUBIN,TOTAL 0.4 mg/dL (0.2-1); LDH 182 U/L (84-246); TOT PROT 7.1 g/dl (6.4-8.2)
[2024-09-11 12:32] LABS: ALK PHOS 160 U/L (45-117)
[2024-09-11 12:36] LABS: URIC ACID 6.6 mg/dL (2.6-7.2)
[2024-09-11] MEDS: EPOETIN ALFA-EPBX 10,000 UNIT/ML VIAL SQ ONE (13:14)
[2024-09-11 15:28] VITALS: BP 156/48; PULSE 58; RESP 20; TEMP 97.3
== END 2024-09-11 13:35 | disposition home or self-care (01) ==
LOC: JONCCHEMO 10:19 → J7W 10:42 → JONCCHEMO 13:35
PROVIDERS: ATTEND Internal Medicine Hematology & Oncology
PROC: 3E013GC Introduction of Other Therapeutic Substance into Subcutaneous Tissue, Percutaneous Approach (ICD-10-PCS; principal; 2024-09-11)
DX: D64.9 Anemia, unspecified (principal)
CPT/HCPCS: 36415; 80053; 82977; 83615; 83735; 84550; 85025; 96372; Q5106

== ENCOUNTER 2024-09-17 11:02 | Day surgery (SDC) | payer OTHER ==
[2024-09-17 11:37] LABS: BASO % 0.6 % (0-2.0); EOS % 3.1 % (0-4.5); HEMATOCRIT 29.9 % (32.4-45.2); HEMOGLOBIN 9.8 GM/dL (10.7-15.3); LYMPH % 17.3 % (8-40); MCH 31.3 pg (25.7-33.7); MCHC 32.7 g/dl (32.0-36.0); MEAN CELL VOLUME 95.9 fl (80-96); MEAN PLT VOLUME 8.9 fl (7.5-11.1); MONO % 7.8 % (3.8-10.2); NEUT % 71.2 % (42.8-82.8); PLATELET COUNT 152 10^3/uL (134-434); RBC 3.12 M/mm3 (3.60-5.2); WHITE BLOOD COUNT 3.4 K/mm3 (4.0-10.0)
[2024-09-17 12:31] LABS: POTASSIUM 5.2 mmol/L (3.5-5.1)
[2024-09-17 12:33] LABS: CALCIUM 9.7 mg/dL (8.5-10.1)
[2024-09-17 12:34] LABS: ALBUMIN 3.6 g/dl (3.4-5.0); BLOOD UREA NITROGEN 93.4 mg/dL (7-18)
[2024-09-17 12:35] LABS: MAGNESIUM 1.7 mg/dL (1.8-2.4)
[2024-09-17 12:36] LABS: URIC ACID 5.7 mg/dL (2.6-7.2)
[2024-09-17 12:39] LABS: BILIRUBIN,TOTAL 0.3 mg/dL (0.2-1); TOT PROT 6.6 g/dl (6.4-8.2)
[2024-09-17] MEDS: EPOETIN ALFA-EPBX 10,000 UNIT/ML VIAL SQ ONE (13:37)
[2024-09-17] MEDS: SODIUM POLYSTYRENE SULFONATE 15 GM/60 ML BOTTLE PO ONE (13:38)
[2024-09-17] MEDS: MAGNESIUM OXIDE 400 MG TABLET (FP) PO ONE (13:38)
[2024-09-17 15:24] VITALS: PULSE 69; RESP 20; TEMP 97.3
[2024-09-18 08:57] VITALS: BP 142/65
== END 2024-09-17 14:00 | disposition home or self-care (01) ==
LOC: JONCCHEMO 11:02 → J7W 11:03 → JONCCHEMO 14:00
PROVIDERS: ATTEND Internal Medicine Hematology & Oncology
PROC: 3E013GC Introduction of Other Therapeutic Substance into Subcutaneous Tissue, Percutaneous Approach (ICD-10-PCS; principal; 2024-09-17)
DX: D64.9 Anemia, unspecified (principal)
CPT/HCPCS: 36415; 80053; 82728; 83540; 83550; 83615; 83735; 84550; 85025; 96372; Q5106

== ENCOUNTER 2024-09-26 11:39 | Day surgery (SDC) | payer OTHER ==
[2024-09-26 11:42] LABS: EOS % 2.6 % (0-4.5); HEMATOCRIT 33.1 % (32.4-45.2); HEMOGLOBIN 10.5 GM/dL (10.7-15.3); LYMPH % 11.7 % (8-40); MCH 31.4 pg (25.7-33.7); MCHC 31.7 g/dl (32.0-36.0); MEAN PLT VOLUME 8.6 fl (7.5-11.1); MONO % 7.5 % (3.8-10.2); NEUT % 77.2 % (42.8-82.8); PLATELET COUNT 140 10^3/uL (134-434); RBC 3.34 M/mm3 (3.60-5.2); RDW 16.5 % (11.6-15.6); WHITE BLOOD COUNT 3.7 K/mm3 (4.0-10.0)
[2024-09-26 11:55] LABS: CHLORIDE 111 mmol/L (98-107); POTASSIUM 4.4 mmol/L (3.5-5.1); SODIUM 139 mmol/L (136-145)
[2024-09-26 11:56] LABS: CALCIUM 9.9 mg/dL (8.5-10.1)
[2024-09-26 11:57] LABS: ALBUMIN 3.6 g/dl (3.4-5.0); ANION GAP 9 mmol/L (4-13); BLOOD UREA NITROGEN 83.4 mg/dL (7-18); CO2 19 mmol/L (21-32); GLUCOSE,RANDOM 111 mg/dL (74-106); MAGNESIUM 1.5 mg/dL (1.8-2.4)
[2024-09-26 11:59] LABS: CREATININE 3.7 mg/dL (0.55-1.3); URIC ACID 7.2 mg/dL (2.6-7.2)
[2024-09-26 12:00] LABS: SGOT/AST 15 U/L (15-37); SGPT/ALT 23 U/L (13-61)
[2024-09-26 12:01] LABS: BILIRUBIN,TOTAL 0.6 mg/dL (0.2-1); TOT PROT 6.7 g/dl (6.4-8.2)
[2024-09-26 12:02] LABS: ALK PHOS 150 U/L (45-117)
[2024-09-26] MEDS: EPOETIN ALFA-EPBX 10,000 UNIT/ML VIAL SQ ONE (12:09)
[2024-09-26] MEDS: MAGNESIUM OXIDE 400 MG TABLET (FP) PO ONE (12:56)
[2024-09-26 14:05] LABS: LDH 223 U/L (84-246)
[2024-09-26 17:03] VITALS: BP 178/71; PULSE 68; RESP 18; TEMP 98
== END 2024-09-26 13:30 | disposition home or self-care (01) ==
LOC: JONCCHEMO 11:39 → J7W 11:40 → JONCCHEMO 13:30
PROVIDERS: ATTEND Internal Medicine Hematology & Oncology
PROC: 3E013GC Introduction of Other Therapeutic Substance into Subcutaneous Tissue, Percutaneous Approach (ICD-10-PCS; principal; 2024-09-26)
DX: D64.9 Anemia, unspecified (principal)
CPT/HCPCS: 36415; 80053; 83615; 83735; 84550; 85025; 96372; Q5106

== ENCOUNTER 2024-10-24 10:00 | Day surgery (SDC) | payer OTHER ==
[2024-10-24 10:45] LABS: BASO % 0.9 % (0-2.0); HEMATOCRIT 30.7 % (32.4-45.2); HEMOGLOBIN 9.8 GM/dL (10.7-15.3); LYMPH % 16.5 % (8-40); MCH 30.9 pg (25.7-33.7); MCHC 31.9 g/dl (32.0-36.0); MEAN CELL VOLUME 96.8 fl (80-96); MEAN PLT VOLUME 10.1 fl (7.5-11.1); MONO % 10.6 % (3.8-10.2); PLATELET COUNT 98 10^3/uL (134-434); RBC 3.18 M/mm3 (3.60-5.2); WHITE BLOOD COUNT 3.2 K/mm3 (4.0-10.0)
[2024-10-24 11:03] LABS: CHLORIDE 106 mmol/L (98-107); POTASSIUM 4.6 mmol/L (3.5-5.1); SODIUM 135 mmol/L (136-145)
[2024-10-24 11:06] LABS: ALBUMIN 3.8 g/dl (3.4-5.0); ANION GAP 8 mmol/L (4-13); CALCIUM 10.3 mg/dL (8.5-10.1); CO2 20 mmol/L (21-32)
[2024-10-24 11:07] LABS: GLUCOSE,RANDOM 165 mg/dL (74-106)
[2024-10-24 11:08] LABS: SGOT/AST 10 U/L (15-37); SGPT/ALT 18 U/L (13-61); URIC ACID 5.9 mg/dL (2.6-7.2)
[2024-10-24 11:09] LABS: CREATININE 4.5 mg/dL (0.55-1.3); IRON SERUM 188 ug/dL (50-175)
[2024-10-24 11:11] LABS: BILIRUBIN,TOTAL 0.4 mg/dL (0.2-1)
[2024-10-24 11:12] LABS: ALK PHOS 161 U/L (45-117)
[2024-10-24 11:58] LABS: LDH 178 U/L (84-246)
[2024-10-24] MEDS: EPOETIN ALFA-EPBX 10,000 UNIT/ML VIAL SQ ONE (12:35)
[2024-10-24 14:31] VITALS: BP 121/61; PULSE 54; RESP 28; TEMP 97.4
== END 2024-10-24 13:00 | disposition home or self-care (01) ==
LOC: JONCCHEMO 10:00 → J7W 10:43 → JONCCHEMO 13:00
PROVIDERS: ATTEND Internal Medicine Hematology & Oncology
PROC: 3E013GC Introduction of Other Therapeutic Substance into Subcutaneous Tissue, Percutaneous Approach (ICD-10-PCS; principal; 2024-10-24)
DX: C64.2 Malignant neoplasm of left kidney, except renal pelvis (principal); D63.1 Anemia in chronic kidney disease; Z76.89 Persons encountering health services in other specified circumstances
CPT/HCPCS: 36415; 80053; 82728; 83540; 83550; 83615; 83735; 84550; 85025; 96372; Q5106

== ENCOUNTER 2024-10-31 15:46 | Day surgery (SDC) | payer OTHER ==
[2024-10-31 15:58] LABS: BASO % 0.4 % (0-2.0); EOS % 1.6 % (0-4.5); HEMOGLOBIN 10.2 GM/dL (10.7-15.3); LYMPH % 11.7 % (8-40); MCH 30.8 pg (25.7-33.7); MEAN CELL VOLUME 96.4 fl (80-96); MEAN PLT VOLUME 9.1 fl (7.5-11.1); MONO % 6.4 % (3.8-10.2); NEUT % 79.9 % (42.8-82.8); PLATELET COUNT 153 10^3/uL (134-434); RBC 3.32 M/mm3 (3.60-5.2); RDW 14.5 % (11.6-15.6); WHITE BLOOD COUNT 3.3 K/mm3 (4.0-10.0)
[2024-10-31 16:30] VITALS: BP 141/63; PULSE 71; RESP 20; TEMP 9.1
[2024-10-31 16:47] LABS: CHLORIDE 110 mmol/L (98-107); POTASSIUM 4.6 mmol/L (3.5-5.1); SODIUM 137 mmol/L (136-145)
[2024-10-31] MEDS: EPOETIN ALFA-EPBX 10,000 UNIT/ML VIAL SQ ONE (16:48)
[2024-10-31 16:49] LABS: CALCIUM 10.1 mg/dL (8.5-10.1)
[2024-10-31 16:50] LABS: ANION GAP 9 mmol/L (4-13); BLOOD UREA NITROGEN 102.4 mg/dL (7-18); CO2 18 mmol/L (21-32); GLUCOSE,RANDOM 213 mg/dL (74-106)
[2024-10-31 16:51] LABS: URIC ACID 6.2 mg/dL (2.6-7.2)
[2024-10-31 16:53] LABS: CREATININE 4.3 mg/dL (0.55-1.3); SGOT/AST 13 U/L (15-37); SGPT/ALT 22 U/L (13-61)
[2024-10-31 16:54] LABS: TOT PROT 7.2 g/dl (6.4-8.2)
[2024-10-31 16:55] LABS: BILIRUBIN,TOTAL 0.4 mg/dL (0.2-1)
[2024-10-31 16:56] LABS: ALK PHOS 166 U/L (45-117)
[2024-10-31] MEDS ORDERED: INSULIN ASPART SLIDING SCALE (NOVOLOG) 1 VIAL SQ ONE (17:02)
[2024-10-31] MEDS: INSULIN (NOVOLOG) ASPART 100 UNITS/ML 10ML VIAL SQ ONE (17:05)
== END 2024-10-31 17:20 | disposition home or self-care (01) ==
LOC: JONCCHEMO 15:46 → J7W 15:46 → JONCCHEMO 17:20
PROVIDERS: ATTEND Internal Medicine Hematology & Oncology
PROC: 3E013GC Introduction of Other Therapeutic Substance into Subcutaneous Tissue, Percutaneous Approach (ICD-10-PCS; principal; 2024-10-31)
DX: C64.2 Malignant neoplasm of left kidney, except renal pelvis (principal); D63.1 Anemia in chronic kidney disease; Z76.89 Persons encountering health services in other specified circumstances
CPT/HCPCS: 36415; 80053; 83540; 83615; 83735; 84550; 85025; 96372; Q5106

== ENCOUNTER 2024-12-05 11:12 | Day surgery (SDC) | payer OTHER ==
[2024-12-05 12:29] LABS: BASO % 1.1 % (0-2.0); EOS % 3.5 % (0-4.5); HEMATOCRIT 35.5 % (32.4-45.2); HEMOGLOBIN 11.3 GM/dL (10.7-15.3); LYMPH % 21.2 % (8-40); MCH 30.7 pg (25.7-33.7); MCHC 31.7 g/dl (32.0-36.0); MEAN CELL VOLUME 96.8 fl (80-96); MONO % 7.4 % (3.8-10.2); NEUT % 66.8 % (42.8-82.8); PLATELET COUNT 150 10^3/uL (134-434); RBC 3.67 M/mm3 (3.60-5.2); RDW 13.9 % (11.6-15.6); WHITE BLOOD COUNT 2.6 K/mm3 (4.0-10.0)
[2024-12-05 13:06] LABS: CHLORIDE 107 mmol/L (98-107); POTASSIUM 4.8 mmol/L (3.5-5.1); SODIUM 134 mmol/L (136-145)
[2024-12-05 13:08] LABS: ALBUMIN 3.9 g/dl (3.4-5.0); ANION GAP 7 mmol/L (4-13); BLOOD UREA NITROGEN 88.2 mg/dL (7-18); CO2 20 mmol/L (21-32); GLUCOSE,RANDOM 148 mg/dL (74-106)
[2024-12-05 13:09] LABS: MAGNESIUM 1.9 mg/dL (1.8-2.4)
[2024-12-05 13:11] LABS: CREATININE 4.2 mg/dL (0.55-1.3); SGOT/AST 12 U/L (15-37); SGPT/ALT 20 U/L (13-61); URIC ACID 5.3 mg/dL (2.6-7.2)
[2024-12-05 13:13] LABS: BILIRUBIN,TOTAL 0.3 mg/dL (0.2-1); TOT PROT 7.4 g/dl (6.4-8.2)
[2024-12-05 13:14] LABS: ALK PHOS 160 U/L (45-117)
[2024-12-05 14:11] LABS: LDH 201 U/L (84-246)
[2024-12-05] MEDS: EPOETIN ALFA-EPBX 10,000 UNIT/ML VIAL SQ ONE (14:20)
[2024-12-05 18:09] VITALS: BP 145/58; PULSE 64; RESP 18; TEMP 97.6
== END 2024-12-05 14:30 | disposition home or self-care (01) ==
LOC: JONCCHEMO 11:12
PROVIDERS: ATTEND Internal Medicine Hematology & Oncology
PROC: 3E013GC Introduction of Other Therapeutic Substance into Subcutaneous Tissue, Percutaneous Approach (ICD-10-PCS; principal; 2024-12-05)
DX: D64.89 Other specified anemias (principal)
CPT/HCPCS: 36415; 80053; 83615; 83735; 84550; 85025; 96372; Q5106

== ENCOUNTER 2024-12-12 12:22 | Day surgery (SDC) | payer OTHER ==
[2024-12-12 11:25] LABS: BASO % 0.5 % (0-2.0); EOS % 3.4 % (0-4.5); HEMOGLOBIN 11.4 GM/dL (10.7-15.3); LYMPH % 14.3 % (8-40); MCH 30.3 pg (25.7-33.7); MCHC 31.7 g/dl (32.0-36.0); MEAN CELL VOLUME 95.7 fl (80-96); MONO % 8.1 % (3.8-10.2); NEUT % 73.7 % (42.8-82.8); PLATELET COUNT 183 10^3/uL (134-434); RBC 3.76 M/mm3 (3.60-5.2); RDW 14.3 % (11.6-15.6)
[2024-12-12 11:42] LABS: CHLORIDE 98 mmol/L (98-107); POTASSIUM 5.1 mmol/L (3.5-5.1); SODIUM 126 mmol/L (136-145)
[2024-12-12 11:44] LABS: CALCIUM 10.1 mg/dL (8.5-10.1); MAGNESIUM 1.6 mg/dL (1.8-2.4)
[2024-12-12 11:45] LABS: ALBUMIN 3.9 g/dl (3.4-5.0); ANION GAP 11 mmol/L (4-13); BLOOD UREA NITROGEN 82.1 mg/dL (7-18); CO2 17 mmol/L (21-32); GLUCOSE,RANDOM 130 mg/dL (74-106)
[2024-12-12 11:46] LABS: SGOT/AST 12 U/L (15-37); SGPT/ALT 21 U/L (13-61)
[2024-12-12 11:47] LABS: CREATININE 4.1 mg/dL (0.55-1.3); IRON SERUM 38 ug/dL (50-175); TOTAL IRON BINDING CAPACITY 234 ug/dL (250-450)
[2024-12-12 11:48] LABS: URIC ACID 4.7 mg/dL (2.6-7.2)
[2024-12-12 11:50] LABS: BILIRUBIN,TOTAL 0.5 mg/dL (0.2-1); TOT PROT 7.2 g/dl (6.4-8.2)
[2024-12-12 11:51] LABS: ALK PHOS 179 U/L (45-117)
[2024-12-12] MEDS: MAGNESIUM OXIDE 400 MG TABLET (FP) PO ONE (12:33)
[2024-12-12] MEDS: EPOETIN ALFA-EPBX 10,000 UNIT/ML VIAL SQ ONE (12:33)
[2024-12-12 12:55] LABS: LDH 214 U/L (84-246)
[2024-12-12 17:07] VITALS: BP 159/61; PULSE 57; RESP 20; TEMP 97.2
== END 2024-12-12 13:10 | disposition home or self-care (01) ==
LOC: JONCCHEMO 12:22
PROVIDERS: ATTEND Internal Medicine Hematology & Oncology
PROC: 3E013GC Introduction of Other Therapeutic Substance into Subcutaneous Tissue, Percutaneous Approach (ICD-10-PCS; principal; 2024-12-12)
DX: D64.89 Other specified anemias (principal); C64.2 Malignant neoplasm of left kidney, except renal pelvis
CPT/HCPCS: 36415; 80053; 82728; 83540; 83550; 83615; 83735; 84550; 85025; 96372; Q5106

== ENCOUNTER 2024-12-26 10:17 | Day surgery (SDC) | payer OTHER ==
[2024-12-26 11:14] LABS: EOS % 4.7 % (0-4.5); HEMATOCRIT 34.8 % (32.4-45.2); HEMOGLOBIN 11.1 GM/dL (10.7-15.3); MCH 30.9 pg (25.7-33.7); MCHC 31.8 g/dl (32.0-36.0); MEAN CELL VOLUME 97.1 fl (80-96); MEAN PLT VOLUME 8.3 fl (7.5-11.1); MONO % 8.9 % (3.8-10.2); NEUT % 70.4 % (42.8-82.8); PLATELET COUNT 152 10^3/uL (134-434); RBC 3.58 M/mm3 (3.60-5.2); RDW 15.1 % (11.6-15.6); WHITE BLOOD COUNT 3.2 K/mm3 (4.0-10.0)
[2024-12-26 11:30] LABS: CHLORIDE 102 mmol/L (98-107); POTASSIUM 5.5 mmol/L (3.5-5.1); SODIUM 129 mmol/L (136-145)
[2024-12-26 11:33] LABS: ALBUMIN 3.9 g/dl (3.4-5.0); ANION GAP 9 mmol/L (4-13); BLOOD UREA NITROGEN 99.9 mg/dL (7-18); CO2 18 mmol/L (21-32); GLUCOSE,RANDOM 113 mg/dL (74-106); MAGNESIUM 1.7 mg/dL (1.8-2.4)
[2024-12-26 11:35] LABS: CREATININE 4.4 mg/dL (0.55-1.3); SGOT/AST 16 U/L (15-37); SGPT/ALT 30 U/L (13-61); URIC ACID 5.4 mg/dL (2.6-7.2)
[2024-12-26 11:37] LABS: BILIRUBIN,TOTAL 0.5 mg/dL (0.2-1); LDH 214 U/L (84-246); TOT PROT 7.1 g/dl (6.4-8.2)
[2024-12-26] MEDS: EPOETIN ALFA-EPBX 10,000 UNIT/ML VIAL SQ ONE (12:27)
[2024-12-26] MEDS: SODIUM POLYSTYRENE SULFONATE 15 GM/60 ML BOTTLE PO ONE (12:29)
[2024-12-26] MEDS: SODIUM BICARBONATE 650 MG TABLET PO ONE (12:30)
[2024-12-26] MEDS: MAGNESIUM OXIDE 400 MG TABLET (FP) PO ONE (12:30)
[2024-12-26 13:37] LABS: ALK PHOS 197 U/L (45-117)
[2024-12-26 17:29] VITALS: BP 141/59; PULSE 61; RESP 18; TEMP 97.3
== END 2024-12-26 12:45 | disposition home or self-care (01) ==
LOC: JONCCHEMO 10:17 → J7W 10:25 → JONCCHEMO 12:45
PROVIDERS: ATTEND Internal Medicine Hematology & Oncology
PROC: 3E023GC Introduction of Other Therapeutic Substance into Muscle, Percutaneous Approach (ICD-10-PCS; principal; 2024-12-26)
DX: C64.2 Malignant neoplasm of left kidney, except renal pelvis (principal); D63.8 Anemia in other chronic diseases classified elsewhere; Z76.89 Persons encountering health services in other specified circumstances
CPT/HCPCS: 36415; 80053; 83615; 83735; 84550; 85025; 96372; Q5106

== ENCOUNTER 2025-01-02 13:59 | Day surgery (SDC) | payer OTHER ==
[2025-01-02 14:34] LABS: HEMATOCRIT 36.5 % (34.1-44.9); HEMOGLOBIN 11.3 g/dL (11.2-15.7); MEAN CELL VOLUME 99.2 fl (79.4-94.8); MEAN PLT VOLUME 10.5 fl (9.4-12.3); PLATELET COUNT # 199 x10^3/uL (182-369); RDW 14.4 % (12.4-16.6)
[2025-01-02 14:58] LABS: CHLORIDE 104 mmol/L (98-107); POTASSIUM 3.1 mmol/L (3.5-5.1); SODIUM 139 mmol/L (136-145)
[2025-01-02 15:01] LABS: ALBUMIN 3.7 g/dl (3.4-5.0); ANION GAP 8 mmol/L (4-13); BLOOD UREA NITROGEN 77.8 mg/dL (7-18); CALCIUM 9.9 mg/dL (8.5-10.1); CO2 26 mmol/L (21-32); GLUCOSE,RANDOM 146 mg/dL (74-106); MAGNESIUM 1.7 mg/dL (1.8-2.4)
[2025-01-02 15:04] LABS: CREATININE 3.7 mg/dL (0.55-1.3); SGOT/AST 17 U/L (15-37); SGPT/ALT 32 U/L (13-61); URIC ACID 6.1 mg/dL (2.6-7.2)
[2025-01-02 15:06] LABS: BILIRUBIN,TOTAL 0.5 mg/dL (0.2-1); TOT PROT 6.8 g/dl (6.4-8.2)
[2025-01-02 15:07] LABS: MONOCYTE # 0.23 x10^3/uL (0.24-0.86)
[2025-01-02 15:07] LABS: ALK PHOS 170 U/L (45-117)
[2025-01-02 15:08] LABS: LDH 221 U/L (84-246)
[2025-01-02] MEDS: EPOETIN ALFA-EPBX 10,000 UNIT/ML VIAL SQ ONE (15:29)
[2025-01-02] MEDS: POTASSIUM CHLORIDE TABS 20 MEQ TABLET.ER (FP) PO SCH (15:29)
[2025-01-02] MEDS: MAGNESIUM OXIDE 400 MG TABLET (FP) PO ONE (15:36)
[2025-01-02] MEDS: MAGNESIUM 2GM/50ML STERILE WATER IVPB IVPB ONE (15:37)
[2025-01-02 15:49] VITALS: BP 175/72; PULSE 71; RESP 20; TEMP 98
== END 2025-01-02 15:57 | disposition home or self-care (01) ==
LOC: JONCCHEMO 13:59 → J7W 13:59 → JONCCHEMO 15:57
PROVIDERS: ATTEND Internal Medicine Hematology & Oncology
PROC: 3E013GC Introduction of Other Therapeutic Substance into Subcutaneous Tissue, Percutaneous Approach (ICD-10-PCS; principal; 2025-01-02)
DX: C64.2 Malignant neoplasm of left kidney, except renal pelvis (principal); D63.1 Anemia in chronic kidney disease
CPT/HCPCS: 36415; 80053; 83615; 83735; 84550; 85025; 96372; Q5106

== ENCOUNTER 2025-01-16 14:01 | Day surgery (SDC) | payer OTHER ==
[2025-01-16 14:18] LABS: HEMATOCRIT 34.2 % (34.1-44.9); HEMOGLOBIN 10.6 g/dL (11.2-15.7); MEAN CELL VOLUME 100.6 fl (79.4-94.8); MEAN PLT VOLUME 10.7 fl (9.4-12.3); PLATELET COUNT 136 x10^3/uL (182-369); RDW 13.5 % (12.4-16.6)
[2025-01-16 14:47] LABS: CHLORIDE 108 mmol/L (98-107); POTASSIUM 4.8 mmol/L (3.5-5.1); SODIUM 137 mmol/L (136-145)
[2025-01-16 14:49] LABS: ALBUMIN 3.6 g/dl (3.4-5.0); ANION GAP 7 mmol/L (4-13); CALCIUM 10.1 mg/dL (8.5-10.1); CO2 22 mmol/L (21-32)
[2025-01-16 14:50] LABS: BLOOD UREA NITROGEN 96.2 mg/dL (7-18); GLUCOSE,RANDOM 110 mg/dL (74-106); MAGNESIUM 1.8 mg/dL (1.8-2.4)
[2025-01-16 14:52] LABS: SGOT/AST 14 U/L (15-37); SGPT/ALT 23 U/L (13-61); URIC ACID 7.2 mg/dL (2.6-7.2)
[2025-01-16 14:53] LABS: CREATININE 4.7 mg/dL (0.55-1.3)
[2025-01-16 14:54] LABS: BILIRUBIN,TOTAL 0.5 mg/dL (0.2-1); TOT PROT 6.4 g/dl (6.4-8.2)
[2025-01-16 14:55] LABS: ALK PHOS 183 U/L (45-117)
[2025-01-16 14:56] LABS: LDH 211 U/L (84-246)
[2025-01-16] MEDS: SODIUM POLYSTYRENE SULFONATE 15 GM/60 ML BOTTLE PO ONE (15:23)
[2025-01-16] MEDS: EPOETIN ALFA-EPBX 10,000 UNIT/ML VIAL SQ ONE (15:25)
[2025-01-16] MEDS: MAGNESIUM OXIDE 400 MG TABLET (FP) PO ONE (15:25)
[2025-01-16 17:43] VITALS: BP 152/74; PULSE 65; RESP 20; TEMP 97.8
== END 2025-01-16 15:30 | disposition home or self-care (01) ==
LOC: JONCCHEMO 14:01
PROVIDERS: ATTEND Internal Medicine Hematology & Oncology
PROC: 3E013GC Introduction of Other Therapeutic Substance into Subcutaneous Tissue, Percutaneous Approach (ICD-10-PCS; principal; 2025-01-16)
DX: N18.9 Chronic kidney disease, unspecified (principal); D63.1 Anemia in chronic kidney disease
CPT/HCPCS: 36415; 80053; 83615; 83735; 84550; 85025; 96372; Q5106

== ENCOUNTER 2025-01-23 16:00 | Day surgery (SDC) | payer OTHER ==
[2025-01-23 16:29] LABS: BASOPHILS # 0.01 x10^3/uL (0.01-0.08); EOSINOPHIL % 4.4 % (0.7-5.8); EOSINOPHILS # 0.16 x10^3/uL (0.04-0.36); HEMATOCRIT 36.4 % (34.1-44.9); HEMOGLOBIN 11.3 g/dL (11.2-15.7); MEAN CELL VOLUME 101.4 fl (79.4-94.8); MEAN PLT VOLUME 10.7 fl (9.4-12.3); MONOCYTE # 0.28 x10^3/uL (0.24-0.86); MONOCYTE % 7.8 % (4.7-12.5); PLATELET COUNT 181 x10^3/uL (182-369); RDW 13.9 % (12.4-16.6)
[2025-01-23 16:59] LABS: CHLORIDE 108 mmol/L (98-107); POTASSIUM 4.7 mmol/L (3.5-5.1); SODIUM 138 mmol/L (136-145)
[2025-01-23 17:01] LABS: CALCIUM 10.5 mg/dL (8.5-10.1)
[2025-01-23 17:02] LABS: ALBUMIN 3.6 g/dl (3.4-5.0); ANION GAP 7 mmol/L (4-13); BLOOD UREA NITROGEN 96.4 mg/dL (7-18); CO2 22 mmol/L (21-32); GLUCOSE,RANDOM 135 mg/dL (74-106)
[2025-01-23 17:03] LABS: MAGNESIUM 1.7 mg/dL (1.8-2.4)
[2025-01-23 17:04] LABS: URIC ACID 7.2 mg/dL (2.6-7.2)
[2025-01-23 17:05] LABS: CREATININE 4.7 mg/dL (0.55-1.3); SGOT/AST 16 U/L (15-37); SGPT/ALT 22 U/L (13-61)
[2025-01-23] MEDS: EPOETIN ALFA-EPBX 10,000 UNIT/ML VIAL SQ ONE (17:05)
[2025-01-23] MEDS: MAGNESIUM OXIDE 400 MG TABLET (FP) PO ONE (17:06)
[2025-01-23 17:07] LABS: BILIRUBIN,TOTAL 0.5 mg/dL (0.2-1); TOT PROT 6.7 g/dl (6.4-8.2)
[2025-01-23 17:10] LABS: ALK PHOS 217 U/L (45-117)
[2025-01-23] MEDS: SODIUM POLYSTYRENE SULFONATE 15 GM/60 ML BOTTLE PO ONE (17:13)
[2025-01-23 17:23] VITALS: TEMP 97.5
[2025-01-23 17:24] VITALS: BP 167/69; PULSE 62; RESP 18
[2025-01-23 19:03] LABS: LDH 220 U/L (84-246)
== END 2025-01-23 17:27 | disposition home or self-care (01) ==
LOC: J7W 16:00 → JONCCHEMO 16:00
PROVIDERS: ATTEND Internal Medicine Hematology & Oncology
PROC: 3E013GC Introduction of Other Therapeutic Substance into Subcutaneous Tissue, Percutaneous Approach (ICD-10-PCS; principal; 2025-01-23)
DX: N18.9 Chronic kidney disease, unspecified (principal); D63.1 Anemia in chronic kidney disease
CPT/HCPCS: 36415; 80053; 83615; 83735; 84550; 85025; 96372; Q5106

== ENCOUNTER 2025-02-13 13:45 | Day surgery (SDC) | payer OTHER ==
[~2025-02-13 13:45] MED LIST changes: +MAGNESIUM OXIDE 400 MG TABLET (FP) PO ONE; +SODIUM POLYSTYRENE SULFONATE 15 GM/60 ML BOTTLE PO ONE
[2025-02-13 13:50] LABS: ABSOLUTE IMMATURE GRANULOCYTES 0.01 x10^3/uL (0.0-0.031); BASOPHILS # 0.01 x10^3/uL (0.01-0.08); EOSINOPHIL % 2.3 % (0.7-5.8); EOSINOPHILS # 0.09 x10^3/uL (0.04-0.36); HEMATOCRIT 35.6 % (34.1-44.9); HEMOGLOBIN 11.3 g/dL (11.2-15.7); MCHC 31.7 g/dl (32.2-35.5); MEAN CELL VOLUME 98.6 fl (79.4-94.8); MEAN PLT VOLUME 11.4 fl (9.4-12.3); MONOCYTE # 0.34 x10^3/uL (0.24-0.86); MONOCYTE % 8.7 % (4.7-12.5); PLATELET COUNT 119 x10^3/uL (182-369); RDW 12.5 % (12.4-16.6)
[2025-02-13 14:18] LABS: CHLORIDE 102 mmol/L (98-107); POTASSIUM 5.1 mmol/L (3.5-5.1); SODIUM 132 mmol/L (136-145)
[2025-02-13 14:21] LABS: ALBUMIN 3.4 g/dl (3.4-5.0); ANION GAP 11 mmol/L (4-13); BLOOD UREA NITROGEN 100.6 mg/dL (7-18); CO2 19 mmol/L (21-32); GLUCOSE,RANDOM 152 mg/dL (74-106); MAGNESIUM 2.1 mg/dL (1.8-2.4)
[2025-02-13 14:23] LABS: URIC ACID 6.2 mg/dL (2.6-7.2)
[2025-02-13 14:24] LABS: CREATININE 4.5 mg/dL (0.55-1.3); SGOT/AST 14 U/L (15-37); SGPT/ALT 24 U/L (13-61)
[2025-02-13 14:25] LABS: BILIRUBIN,TOTAL 0.3 mg/dL (0.2-1); LDH 186 U/L (84-246); TOT PROT 6.4 g/dl (6.4-8.2)
[2025-02-13 14:26] LABS: ALK PHOS 213 U/L (45-117)
[2025-02-13] MEDS: SODIUM CHLORIDE 1 GM TABLET PO ONE (15:43)
[2025-02-13] MEDS: MAGNESIUM OXIDE 400 MG TABLET (FP) PO ONE (15:44)
[2025-02-13] MEDS: EPOETIN ALFA-EPBX 10,000 UNIT/ML VIAL SQ ONE (15:44)
[2025-02-13] MEDS: SODIUM POLYSTYRENE SULFONATE 15 GM/60 ML BOTTLE PO ONE (15:45)
[2025-02-13 17:10] VITALS: BP 171/56; PULSE 54; RESP 20; TEMP 97.3
== END 2025-02-13 16:30 | disposition home or self-care (01) ==
LOC: JONCCHEMO 13:45 → J7W 13:45 → JONCCHEMO 16:30
PROVIDERS: ATTEND Internal Medicine Hematology & Oncology
PROC: 3E013GC Introduction of Other Therapeutic Substance into Subcutaneous Tissue, Percutaneous Approach (ICD-10-PCS; principal; 2025-02-13)
DX: N18.9 Chronic kidney disease, unspecified (principal); D63.1 Anemia in chronic kidney disease
CPT/HCPCS: 36415; 80053; 83615; 83735; 84550; 85025; 96372; Q5106

== ENCOUNTER 2025-02-20 14:01 | Day surgery (SDC) | payer OTHER ==
[2025-02-20 14:18] LABS: ABSOLUTE IMMATURE GRANULOCYTES 0.01 x10^3/uL (0.0-0.031); BASOPHILS # 0.01 x10^3/uL (0.01-0.08); EOSINOPHIL % 2.9 % (0.7-5.8); EOSINOPHILS # 0.12 x10^3/uL (0.04-0.36); HEMATOCRIT 37.2 % (34.1-44.9); HEMOGLOBIN 11.5 g/dL (11.2-15.7); MCHC 30.9 g/dl (32.2-35.5); MEAN CELL VOLUME 99.5 fl (79.4-94.8); MEAN PLT VOLUME 10.4 fl (9.4-12.3); MONOCYTE # 0.34 x10^3/uL (0.24-0.86); MONOCYTE % 8.1 % (4.7-12.5); PLATELET COUNT 194 x10^3/uL (182-369); RDW 12.5 % (12.4-16.6)
[2025-02-20 14:45] LABS: CHLORIDE 105 mmol/L (98-107); POTASSIUM 4.7 mmol/L (3.5-5.1); SODIUM 137 mmol/L (136-145)
[2025-02-20 14:46] LABS: ALBUMIN 3.6 g/dl (3.4-5.0); ANION GAP 8 mmol/L (4-13); CALCIUM 10.4 mg/dL (8.5-10.1); CO2 23 mmol/L (21-32)
[2025-02-20 14:48] LABS: BLOOD UREA NITROGEN 82.9 mg/dL (7-18); GLUCOSE,RANDOM 111 mg/dL (74-106); MAGNESIUM 1.9 mg/dL (1.8-2.4)
[2025-02-20 14:50] LABS: SGOT/AST 14 U/L (15-37); SGPT/ALT 25 U/L (13-61); URIC ACID 6.5 mg/dL (2.6-7.2)
[2025-02-20 14:51] LABS: BILIRUBIN,TOTAL 0.5 mg/dL (0.2-1); CREATININE 4.7 mg/dL (0.55-1.3); TOT PROT 6.8 g/dl (6.4-8.2)
[2025-02-20 14:53] LABS: ALK PHOS 268 U/L (45-117)
[2025-02-20 15:08] LABS: LDH 206 U/L (84-246)
[2025-02-20] MEDS: EPOETIN ALFA-EPBX 10,000 UNIT/ML VIAL SQ ONE (15:15)
[2025-02-20] MEDS: MAGNESIUM OXIDE 400 MG TABLET (FP) PO ONE (15:15)
[2025-02-20] MEDS: SODIUM POLYSTYRENE SULFONATE 15 GM/60 ML BOTTLE PO ONE (15:34)
[2025-02-20 16:00] VITALS: PULSE 65; RESP 20; TEMP 97.4
== END 2025-02-20 15:45 | disposition home or self-care (01) ==
LOC: JONCCHEMO 14:01 → J7W 14:02 → JONCCHEMO 15:45
PROVIDERS: ATTEND Internal Medicine Hematology & Oncology
PROC: 3E013GC Introduction of Other Therapeutic Substance into Subcutaneous Tissue, Percutaneous Approach (ICD-10-PCS; principal; 2025-02-20)
DX: N18.9 Chronic kidney disease, unspecified (principal); D63.1 Anemia in chronic kidney disease
CPT/HCPCS: 36415; 80053; 83615; 83735; 84550; 85025; 96372; Q5106

== ENCOUNTER 2025-02-27 15:01 | Day surgery (SDC) | payer OTHER ==
[2025-02-27 15:07] VITALS: BP 142/76; PULSE 62; RESP 16; TEMP 98.1
[2025-02-27 15:19] LABS: ABSOLUTE IMMATURE GRANULOCYTES 0.01 x10^3/uL (0.0-0.031); EOSINOPHIL % 2.9 % (0.7-5.8); EOSINOPHILS # 0.11 x10^3/uL (0.04-0.36); HEMATOCRIT 37.4 % (34.1-44.9); HEMOGLOBIN 11.4 g/dL (11.2-15.7); MCHC 30.5 g/dl (32.2-35.5); MEAN CELL VOLUME 102.2 fl (79.4-94.8); MEAN PLT VOLUME 10.3 fl (9.4-12.3); MONOCYTE # 0.35 x10^3/uL (0.24-0.86); MONOCYTE % 9.4 % (4.7-12.5); PLATELET COUNT 163 x10^3/uL (182-369); RDW 13.7 % (12.4-16.6)
[2025-02-27 15:53] LABS: CHLORIDE 105 mmol/L (98-107); SODIUM 138 mmol/L (136-145)
[2025-02-27 15:56] LABS: ALBUMIN 3.7 g/dl (3.4-5.0); ANION GAP 8 mmol/L (4-13); BLOOD UREA NITROGEN 95.1 mg/dL (7-18); CALCIUM 10.5 mg/dL (8.5-10.1); CO2 26 mmol/L (21-32); GLUCOSE,RANDOM 144 mg/dL (74-106); MAGNESIUM 2.3 mg/dL (1.8-2.4)
[2025-02-27 15:58] LABS: URIC ACID 7.7 mg/dL (2.6-7.2)
[2025-02-27] MEDS: EPOETIN ALFA-EPBX 10,000 UNIT/ML VIAL SQ ONE (15:58)
[2025-02-27] MEDS: SODIUM POLYSTYRENE SULFONATE 15 GM/60 ML BOTTLE PO ONE (15:58)
[2025-02-27] MEDS: MAGNESIUM OXIDE 400 MG TABLET (FP) PO ONE (15:58)
[2025-02-27 15:59] LABS: CREATININE 4.6 mg/dL (0.55-1.3); SGOT/AST 14 U/L (15-37); SGPT/ALT 23 U/L (13-61)
[2025-02-27 16:02] LABS: LDH 205 U/L (84-246)
[2025-02-27 16:08] LABS: ALK PHOS 239 U/L (45-117); BILIRUBIN,TOTAL 0.5 mg/dL (0.2-1); TOT PROT 6.7 g/dl (6.4-8.2)
== END 2025-02-27 16:20 | disposition home or self-care (01) ==
LOC: J7W 15:01 → JONCCHEMO 15:01
PROVIDERS: ATTEND Internal Medicine Hematology & Oncology
PROC: 3E013GC Introduction of Other Therapeutic Substance into Subcutaneous Tissue, Percutaneous Approach (ICD-10-PCS; principal; 2025-02-27)
DX: N18.9 Chronic kidney disease, unspecified (principal); D63.1 Anemia in chronic kidney disease
CPT/HCPCS: 36415; 80053; 83615; 83735; 84550; 85025; 96372; Q5106

== ENCOUNTER 2025-04-24 12:21 | Day surgery (SDC) | payer OTHER ==
[~2025-04-24 12:21] MED LIST changes: +SODIUM CHLORIDE 0.45% 250 ML IV ONE; +SODIUM CHLORIDE 0.45% 250 ML IV SCH
[2025-04-24 13:16] LABS: ABSOLUTE IMMATURE GRANULOCYTES 0.01 x10^3/uL (0.0-0.031); BASOPHILS # 0.01 x10^3/uL (0.01-0.08); EOSINOPHIL % 3.7 % (0.7-5.8); EOSINOPHILS # 0.12 x10^3/uL (0.04-0.36); MCHC 32.3 g/dl (32.2-35.5); MEAN CELL VOLUME 94.8 fl (79.4-94.8); MEAN PLT VOLUME 10.5 fl (9.4-12.3); MONOCYTE # 0.32 x10^3/uL (0.24-0.86); MONOCYTE % 9.8 % (4.7-12.5); RDW 12.2 % (12.4-16.6)
[2025-04-24 13:42] LABS: CO2 19 mmol/L (21-32); GLUCOSE,RANDOM 141 mg/dL (74-106); IRON SERUM 195.0 ug/dL (50-175)
[2025-04-24 13:44] LABS: CREATININE 4.9 mg/dL (0.55-1.3); IRON SERUM 199 ug/dL (50-175)
[2025-04-24 13:45] LABS: SGOT/AST 14 U/L (15-37); SGPT/ALT 36 U/L (13-61)
[2025-04-24] MEDS: EPOETIN ALFA-EPBX 10,000 UNIT/ML VIAL SQ ONE (13:45)
[2025-04-24 13:46] LABS: TOT PROT 6.3 g/dl (6.4-8.2)
[2025-04-24 13:47] LABS: ALK PHOS 174 U/L (45-117)
[2025-04-24] MEDS: SODIUM POLYSTYRENE SULFONATE 15 GM/60 ML BOTTLE PO ONE (14:03)
[2025-04-24] MEDS: SODIUM CHLORIDE 0.45% 250 ML IV SCH (14:03)
[2025-04-24] MEDS: MAGNESIUM OXIDE 400 MG TABLET (FP) PO ONE (14:03)
[2025-04-24 14:07] VITALS: BP 150/52; PULSE 77; RESP 20; TEMP 98.2
[2025-04-24 15:01] LABS: LDH 232 U/L (84-246)
== END 2025-04-24 14:12 | disposition home or self-care (01) ==
LOC: JONCCHEMO 12:21 → J7W 12:24 → JONCCHEMO 14:12
PROVIDERS: ATTEND Internal Medicine Hematology & Oncology
PROC: 3E013GC Introduction of Other Therapeutic Substance into Subcutaneous Tissue, Percutaneous Approach (ICD-10-PCS; principal; 2025-04-24)
DX: D64.89 Other specified anemias (principal)
CPT/HCPCS: 36415; 80053; 82607; 82728; 83540; 83550; 83615; 83735; 84550; 85025; Q5106

== ENCOUNTER 2025-04-24 14:06 | Inpatient (IN) | payer OTHER ==
[2025-04-24] MEDS ORDERED: HEPARIN NA (PORCINE) 5,000 UNITS/ML 1ML VIAL SQ SCH ×2 (22:00)
[2025-04-24 22:02] VITALS: RESP 18
[2025-04-24] MEDS: FUROSEMIDE 40 MG/4 ML INJECTABLE VIAL IVPUSH ONE (22:35)
[2025-04-24] MEDS ORDERED: SENNOSIDES 8.6MG TABLET (FP) PO PRN (23:05)
[2025-04-24] MEDS ORDERED: MELATONIN 5 MG TABLETS PO PRN (23:05)
[2025-04-25 00:50] VITALS: BMI 21.2
[2025-04-25] MEDS ORDERED: DEXTROSE 50%-WATER 25 GM/50 ML DISP.SYRIN IVPUSH PRN (02:22)
[2025-04-25 04:57] LABS: MCHC 34.3 g/dl (32.2-35.5); MEAN CELL VOLUME 88.9 fl (79.4-94.8); MEAN PLT VOLUME 10.4 fl (9.4-12.3); RDW 14.8 % (12.4-16.6)
[2025-04-25] MEDS: SODIUM BICARBONATE 650 MG TABLET PO SCH (05:59)
[2025-04-25 07:35] LABS: ABSOLUTE IMMATURE GRANULOCYTES 0.01 x10^3/uL (0.0-0.031); BASOPHILS # 0.01 x10^3/uL (0.01-0.08); EOSINOPHIL % 5.2 % (0.7-5.8); EOSINOPHILS # 0.23 x10^3/uL (0.04-0.36); MCHC 34.0 g/dl (32.2-35.5); MEAN CELL VOLUME 89.2 fl (79.4-94.8); MEAN PLT VOLUME 10.1 fl (9.4-12.3); MONOCYTE # 0.45 x10^3/uL (0.24-0.86); MONOCYTE % 10.2 % (4.7-12.5); RDW 15.0 % (12.4-16.6)
[2025-04-25 07:51] LABS: CO2 19.0 mmol/L (21-32); GLUCOSE,RANDOM 90.0 mg/dL (74-106)
[2025-04-25 07:54] LABS: CREATININE 4.8 mg/dL (0.55-1.3); SGOT/AST 13.0 U/L (15-37); SGPT/ALT 31.0 U/L (13-61)
[2025-04-25 07:56] LABS: TOT PROT 5.7 g/dl (6.4-8.2)
[2025-04-25 07:57] LABS: ALK PHOS 161.0 U/L (45-117)
[2025-04-25] MEDS: amLODIPine BESYLATE 10 MG TABLET (FP) PO SCH (10:11)
[2025-04-25] MEDS: NIFEdipine E.R. 30 MG TABLET PO SCH (10:11)
[2025-04-25] MEDS: POLYETHYLENE GLYCOL (HEALTHYLAX) 3350 17 GM PACKET PO SCH (10:11)
[2025-04-25] MEDS: SODIUM ZIRCONIUM CYCLOSILICATE (LOKELMA) 5 GM PACKET PO SCH (10:11)
[2025-04-25] MEDS: hydrALAZINE HCL 50 MG TABLET (FP) PO SCH (10:11)
[2025-04-25] MEDS: PANTOPRAZOLE SODIUM 40 MG VIAL IVPUSH SCH (10:11)
[2025-04-25] MEDS: SEVELAMER CARBONATE 0.8 GM POWDER PACKET PO SCH (10:12)
[2025-04-25] MEDS: SODIUM CHLORIDE 1 GM TABLET PO SCH (10:12)
[2025-04-25] MEDS: INSULIN ASPART SLIDING SCALE (NOVOLOG) 1 VIAL SQ SCH (11:49)
[2025-04-25 13:33] LABS: INR 0.93 (0.83-1.09); PROTHROMBIN TIME (PATIENT) 10.2 SEC (9.7-13.0)
[2025-04-25 14:57] VITALS: BP 149/69; PULSE 75; TEMP 97.7
[2025-04-25] MEDS ORDERED: ATORVASTATIN CA 40 MG TABLET (FP) PO SCH (22:00)
[2025-04-26] MEDS ORDERED: PANTOPRAZOLE 40 MG TABLET PO SCH (10:00)
== END 2025-04-25 15:15 | disposition home or self-care (01) | DRG 687 ==
LOC: JER 14:06 → JERBED 18:27 → J7W 22:24
PROVIDERS: ADMIT Student in an Organized Health Care Education/Training Program; ATTEND Internal Medicine
PROC: 30233N1 Transfusion of Nonautologous Red Blood Cells into Peripheral Vein, Percutaneous Approach (ICD-10-PCS; principal; 2025-04-24)
DX: C64.9 Malignant neoplasm of unspecified kidney, except renal pelvis (principal); Q61.02 Congenital multiple renal cysts; Q61.3 Polycystic kidney, unspecified; D64.9 Anemia, unspecified; I10 Essential (primary) hypertension; E11.9 Type 2 diabetes mellitus without complications; E03.9 Hypothyroidism, unspecified; N18.9 Chronic kidney disease, unspecified; E11.649 Type 2 diabetes mellitus with hypoglycemia without coma; I12.9 Hypertensive chronic kidney disease with stage 1 through stage 4 chronic kidney disease, or unspecified chronic kidney disease; E11.22 Type 2 diabetes mellitus with diabetic chronic kidney disease; N28.89 Other specified disorders of kidney and ureter; G47.00 Insomnia, unspecified
CPT/HCPCS: 36415; 36430; 80053; 82272; 82533; 82962; 83735; 84100; 84443; 85025; 85027; 85610; 85730; 86850; 86900; 86901; 86922; 93005; 93010; 99285-25; P9038; P9058

== ENCOUNTER 2025-05-15 10:00 | Day surgery (SDC) | payer OTHER ==
[2025-05-15 10:26] LABS: ABSOLUTE IMMATURE GRANULOCYTES 0.01 x10^3/uL (0.0-0.031); BASOPHILS # 0.02 x10^3/uL (0.01-0.08); EOSINOPHIL % 4.5 % (0.7-5.8); EOSINOPHILS # 0.20 x10^3/uL (0.04-0.36); MCHC 32.7 g/dl (32.2-35.5); MEAN CELL VOLUME 92.7 fl (79.4-94.8); MEAN PLT VOLUME 9.1 fl (9.4-12.3); MONOCYTE # 0.48 x10^3/uL (0.24-0.86); MONOCYTE % 10.7 % (4.7-12.5); RDW 15.2 % (12.4-16.6)
[2025-05-15 10:43] LABS: CO2 24 mmol/L (21-32)
[2025-05-15 10:45] LABS: GLUCOSE,RANDOM 147 mg/dL (74-106)
[2025-05-15 10:47] LABS: CREATININE 4.7 mg/dL (0.55-1.3); SGOT/AST 8 U/L (15-37); SGPT/ALT 14 U/L (13-61)
[2025-05-15 10:49] LABS: TOT PROT 6.3 g/dl (6.4-8.2)
[2025-05-15] MEDS: SODIUM CHLORIDE 0.45% 250 ML IV ONE (10:51)
[2025-05-15 10:53] LABS: ALK PHOS 251 U/L (45-117); LDH 205 U/L (84-246)
[2025-05-15] MEDS: SODIUM POLYSTYRENE SULFONATE 15 GM/60 ML BOTTLE PO ONE (11:30)
[2025-05-15] MEDS: MAGNESIUM OXIDE 400 MG TABLET (FP) PO ONE (11:42)
[2025-05-15] MEDS: EPOETIN ALFA-EPBX 10,000 UNIT/ML VIAL SQ ONE (11:42)
[2025-05-15 16:18] VITALS: BP 126/56; PULSE 66; RESP 20; TEMP 97.2
== END 2025-05-15 12:30 | disposition home or self-care (01) ==
LOC: JONCCHEMO 10:00 → J7W 10:53 → JONCCHEMO 12:30
PROVIDERS: ATTEND Internal Medicine Hematology & Oncology
PROC: 3E013GC Introduction of Other Therapeutic Substance into Subcutaneous Tissue, Percutaneous Approach (ICD-10-PCS; principal; 2025-05-15)
DX: D64.89 Other specified anemias (principal); Z76.89 Persons encountering health services in other specified circumstances
CPT/HCPCS: 36415; 80053; 83615; 83735; 84550; 85025; 96372; Q5106

== ENCOUNTER 2025-06-05 10:50 | Day surgery (SDC) | payer OTHER ==
[2025-06-05 11:11] LABS: ABSOLUTE IMMATURE GRANULOCYTES 0.01 x10^3/uL (0.0-0.031); BASOPHILS # 0.02 x10^3/uL (0.01-0.08); EOSINOPHIL % 3.3 % (0.7-5.8); EOSINOPHILS # 0.14 x10^3/uL (0.04-0.36); MCHC 32.0 g/dl (32.2-35.5); MEAN CELL VOLUME 94.9 fl (79.4-94.8); MEAN PLT VOLUME 10.0 fl (9.4-12.3); MONOCYTE # 0.32 x10^3/uL (0.24-0.86); MONOCYTE % 7.6 % (4.7-12.5); RDW 14.7 % (12.4-16.6)
[2025-06-05 11:33] LABS: GLUCOSE,RANDOM 126 mg/dL (74-106)
[2025-06-05 11:34] LABS: TOT PROT 7.1 g/dl (6.4-8.2)
[2025-06-05 11:36] LABS: ALK PHOS 209 U/L (40-150)
[2025-06-05 11:37] LABS: CO2 22 mmol/L (21-32)
[2025-06-05 11:38] LABS: LDH 219 U/L (84-246)
[2025-06-05 11:39] LABS: CREATININE 5.38 mg/dL (0.55-1.3); SGOT/AST 20 U/L (5-34); SGPT/ALT 11 U/L (0-55)
[2025-06-05] MEDS: SODIUM CHLORIDE 0.45% 250 ML IV ONE (12:10)
[2025-06-05] MEDS: MAGNESIUM OXIDE 400 MG TABLET (FP) PO ONE (12:12)
[2025-06-05] MEDS: EPOETIN ALFA-EPBX 10,000 UNIT/ML VIAL SQ ONE (12:19)
[2025-06-05] MEDS: SODIUM CHLORIDE 1 GM TABLET PO ONE (12:32)
[2025-06-05] MEDS: SODIUM POLYSTYRENE SULFONATE 15 GM/60 ML BOTTLE PO ONE (12:36)
[2025-06-05 14:17] VITALS: RESP 18; TEMP 97.5
[2025-06-05 14:20] VITALS: BP 161/65; PULSE 58
== END 2025-06-05 13:30 | disposition home or self-care (01) ==
LOC: JONCCHEMO 10:50
PROVIDERS: ATTEND Internal Medicine Hematology & Oncology
PROC: 3E013GC Introduction of Other Therapeutic Substance into Subcutaneous Tissue, Percutaneous Approach (ICD-10-PCS; principal; 2025-06-05)
DX: D64.89 Other specified anemias (principal)
CPT/HCPCS: 36415; 80053; 83615; 83735; 84550; 85025; 96372; Q5106